=== PATIENT | female | born 1960 | race African-American/Black ===

== ENCOUNTER 2023-04-04 15:46 | Inpatient (IN) | payer OTHER, SELFPAY ==
[2023-04-04] VITALS (22 sets, daily range): BP systolic 71–170; BP diastolic 45–98; PULSE 84–115; RESP 13–26; TEMP 36.2–36.6; O2SAT 97–100
--- NOTE | ~2023-04-04 | XR_ITS ---
EXAMINATION: XR chest 1V portable DATE: 04/04/2023 17:29 INDICATION: Altered mental status. TECHNIQUE: A single frontal view of the chest was obtained on 2 radiographs. COMPARISON: None. FINDINGS: There is a diffuse interstitial pattern, consistent with mild pulmonary edema. No pleural e ffusion or pneumothorax. The heart size is normal. There is an electronic implant in left chest wall. IMPRESSION: 1. Mild pulmonary edema. Reviewed, dictated and finalized at location E. IMPRESSION: 1. Mild pulmonary edema.
--- NOTE | ~2023-04-04 | CT_ITS ---
EXAMINATION: CT brain wo con DATE: 04/04/2023 17:05 INDICATION: Seizure. TECHNIQUE: Computed tomography (CT) of the head was performed without intravenous contrast. The mA wa s adjusted according to patient size. Iterative reconstruction technique was employed. The dose-lengt h product was 908.00 mGy-cm. COMPARISON: None FINDINGS: There is an infarct in right cerebellum. There are scattered areas of low attenuation in th e cerebral white matter and deep simpson nuclei. There are old infarcts involving the left caudate nucle us, left frontal and parietal lobes, and right thalamus. There is no intracranial hemorrhage or abnor mal mass lesion. There is mild mucosal thickening in the ethmoid sinuses. There is a normal. The mast oid air cells are normal. IMPRESSION: 1. Age-indeterminate infarct in right cerebellum. 2. Old infarcts involving the left caudate nucleus, left frontal and parietal lobes, right thalamus. 3. Extensive nonspecific cerebral white matter disease and disease of the deep simpson nuclei, which lik abigail represents chronic small vessel ischemic disease. Reviewed, dictated and finalized at location E. IMPRESSION: 1. Age-indeterminate infarct in right cerebellum. 2. Old infarcts involving the left caudate nucleus, left frontal and parietal l obes, right thalamus. 3. Extensive nonspecific cerebral white matter disease and disease of the deep simpson nuclei, which likely represents chronic small vessel ischemic disease.
[2023-04-04] MEDS: SODIUM CHLORIDE 0.9% IV 1,000 ML 999 ML IV CONT (16:05)
[2023-04-04] MEDS: NOREPINEPHRINE 8 MG/D5W 250 ML 8 MG/250 ML BAG 5 MG (16:11)
[2023-04-04] MEDS: levETIRAcetam 1000MG/NACL100ML 1,000 MG/100 ML BAG 400 MG IVPB (16:27)
--- NOTE | 2023-04-04 16:39 | ED.SEIZURE ---
HPI - Seizure General Chief Complaint: Seizure Stated Complaint: seizures History of Present Illness HPI Narrative: This is a 63-year-old female, with history of toxoplasmosis,, stroke with residual right-sided deficits and nonverbal status, brought in by EMS after multiple seizures at her long-term. EMS reports on arrival to the patient's long-term, the patient was seen seizing, though this stopped spontaneously. During transport, the patient had a second seizure. She was given 5 of IV Versed with cessation of seizure activity. There was no reported recent change in the patient's health status. Related Data Allergies Allergy/AdvReac Type Severity Reaction Status Date / Time No Known Allergies Allergy Verified 04/04/23 16:16 Review of Systems Review of Systems: Unable to obtain review of systems due to patient's baseline altered mental and nonverbal status PMFSH Past Medical History Medical History CVA (cerebral vascular accident) Dementia History of convulsions Hypertension Toxoplasmosis Surgical History Surgical History No significant past surgical history Social History Social History Smoking status: Smoker, status unknown Alcohol intake: unknown Substance use: unknown Exam Narrative: GENERAL: Well-developed, well-nourished, minimally responsive HEAD: Normocephalic, atraumatic. EYES: PERRLA (pupils 3mm and sluggishly reactive bilaterally) ENT: Nares clear, no rhinorrhea or epistaxis. Mucous membranes moist. Oropharynx without tonsillar hypertrophy exudate or other lesions. NECK: Supple. No midline spine step-off or crepitus CHEST: Rhonchi bilaterally with good aeration. No respiratory distress. No wheezes rales HEART: Tachycardic with regular rhythm. No murmur heard. Normal peripheral pulses. ABDOMEN: Soft, nondistended, normal active bowel sounds. EXTREMITIES: Normal range of motion. No edema. SKIN: Warm, dry, no rash. NEURO: Appears lethargic, withdraws from noxious stimulus to the left, no noted response to noxious stimulus on the right Course Course Emergency Course: 16:10 - On arrival, the patient was minimally responsive and withdrew slightly with the left arm from noxious stimulus but was otherwise unresponsive and had coarse respirations. The decision was made to intubate, however the patient's blood pressure and 76/40. The patient was resuscitated with fluids and Levophed was started. As her blood pressure improved, the patient became more responsive. Staff contacted the patient's long-term, who notes she is nonverbal at baseline. It is unclear if she has neurologic deficits at baseline. 16:50 - I discussed the patient with her sister, who notes for the past 6 months, the patient has had right-sided weakness and has been nonverbal. 18:10 - CT head not concerning for intracranial hemorrhage. Lactic acid elevated to 11.9, consistent with seizure. Creatinine elevated to 1.7 with unknown baseline. CBC demonstrates slightly elevated white blood cell count of 10.4 with anemia (hemoglobin 10.7 with unknown baseline). UA consistent with UTI. Urine drug screen positive for benzodiazepines. Levophed has since been weaned off. I suspect this is secondary to the Versed the patient received in route. Alcohol, acetaminophen and salicylates negative. Chest x-ray demonstrates mild pulmonary edema without other acute processes. I suspect the patient's seizures may be related to UTI. I discussed the patient with neurologist, Dr. Perez who agrees to consult. 18:20 - I discussed the patient with hospitalist, AMY Chowdary who accepts admission to IMU. Vital Signs Vital signs: Vital Signs Temperature 97.8 F 04/04/23 15:46 Pulse Rate 111 H 04/04/23 15:46 Respiratory Rate 25 H 04/04/23 15:46 Blood Pressure 101/59
[2023-04-04 16:49] LABS: Basophils Percent Auto 0.4 % (0.2-1.2); Eosinophils Percent Auto 0.3 % (0-4.4); Hematocrit 37.8 % (37.0-47.0); Hemoglobin 10.7 g/dL (12.0-15.0); Immature Granulocyte Absolute 0.19 K/mm3 (0.00-0.031); Immature Granulocyte Percent A 1.8 % (0-0.5); Immature Platelet Fraction Pct 2.8 % (0.9-11.2); Lymphocytes Absolute Auto 0.93 K/mm3 (0.9-3.2); Lymphocytes Percent Auto 8.9 % (18.3-44.2); Mean Corpuscular HGB Conc 28.3 g/dl (32-36); Mean Corpuscular Hemoglobin 22.2 pg (26-34); Mean Corpuscular Volume 78.3 fl (80-100); Mean Platelet Volume 9.5 fl (7.4-10.4); Monocytes Absolute Auto 0.4 K/mm3 (0.1-0.6); Monocytes Percent Auto 3.8 % (2.6-8.5); Neutrophils Absolute Auto 8.8 K/mm3 (1.3-6.7); Neutrophils Percent Auto 84.8 % (45.5-73.1); Platelet Count Result 231 k/mm3 (150-375); Red Blood Count 4.83 M/mm3 (4.2-5.4); Red Cell Distribution Width 29.2 % (11.5-14.5); White Blood Count 10.4 K/mm3 (4.5-10.0)
[2023-04-04 16:57] LABS: Partial Thromboplastin Time 25.5 SECONDS (22.3-36.8)
[2023-04-04 17:09] LABS: Troponin I 0.017 ng/mL (0.000-0.034)
[2023-04-04 17:11] LABS: Acetaminophen < 10 ug/mL (10-30); Ethanol < 10 mg/dL (<10); Salicylate < 1.0 mg/dL (2-20)
--- NOTE | 2023-04-04 17:12 | ECG_ITS ---
Measurements Intervals [place] Rate: 115 P: 51 WI: 112 QRS: 7 QRSD: 83 T: 48 QT: 296 QTc: 411 Interpretive Statements SINUS TACHYCARDIA WITH SHORT WI INTERVAL SEPTAL MYOCARDIAL INFARCTION , PROBABLY OLD [40+ ms Q WAVE IN V1/V2] INFEROLATERAL ST DEPRESSION, CONSIDER ISCHEMIA ABNORMAL ECG WARNING: DATA QUALITY MAY AFFECT INTERPRETATION NO PREVIOUS ECG AVAILABLE FOR COMPARISON Electronically Signed On 04-05-2023 8:27:31 CDT by Hemant Astudillo M.D.
[2023-04-04 17:16] LABS: INR 1.1; Prothrombin Time 14.9 Seconds (11.1-14.7)
[2023-04-04 17:24] LABS: Platelet Estimate Adequate (Adequate)
[2023-04-04 17:25] LABS: Hypochromasia 1+ (NORMAL); Schistocytes None Seen (NORMAL)
[2023-04-04 17:26] LABS: Anisocytosis 3+ (NORMAL)
[2023-04-04 17:27] LABS: Amphetamine Screen Urine Negative (Negative); Barbiturate Screen Urine Negative (Negative); Benzodiazepines Screen Urine Positive (Negative); Cannabinoid Screen Urine Negative (Negative); Cocaine Screen Urine Negative (Negative); Methadone Screen Urine Negative (Negative); Opiate Screen Urine Negative (Negative); Phencyclidine Screen Urine Negative (Negative)
[2023-04-04 17:27] LABS: Alanine Aminotransferase 50 U/L (6-35); Albumin Level 3.8 g/dL (3.5-5.1); Alkaline Phosphatase 64 U/L (38-126); Anion Gap 20 mmol/L (8-16); Aspartate Amino Transferase 38 U/L (14-36); Bilirubin,Total 0.3 mg/dL (0.2-1.3); Blood Urea Nitrogen 17 mg/dL (7-17); Carbon Dioxide 11 mmol/L (22-30); Chloride 110 mmol/L (98-107); Creatine Kinase 65 U/L (30-135); Estimated Glomerular Filt Rate 37; Glucose 149 mg/dL (65-110); Potassium 3.8 mmol/L (3.4-5.0); Sodium 141 mmol/L (137-145)
[2023-04-04 17:29] LABS: Lactic Acid Reflex 11.9 mmol/L (0.7-2.0)
--- NOTE | 2023-04-04 17:41 | PC.NURSE ---
Per EDMD pt is not allowed to sign pt out as he has neglect charges against him. Nursing [facility] states pt baseline is A&Ox2.
[2023-04-04 17:46] LABS: Appearance Urine Turbid (Clear); Bacteria Urine 4+ /hpf; Bilirubin Urine Negative (Negative); Blood Urine 3+ (Negative); Color Urine Yellow (Yellow); Glucose Urine UA Negative (Negative); Hyaline Casts Urine Present /lpf; Ketones Urine Negative (Negative); Leukocyte Esterase Ur 2+ LEU/UL (Negative); Nitrate Urine Positive (Negative); Protein Urine 2+ mg/dL (Negative); RBC Urine 21-50 /hpf (0-2); Squamous Epithelial Cell Urine Occasional /hpf (Few); WBC Urine 51-100 /hpf; pH Urine 6.5 (5.0-9.0)
[2023-04-04 17:58] LABS: Add Urine Microscopic? YES
[2023-04-04] MEDS: AZITHROMYCIN 500 MG/NS 250 ML 500 MG/250 ML BAG 250 MG IVPB (18:00)
[2023-04-04] MEDS: CEFEPIME 1 GM/NS 50 ML 1 GM/50 ML BAG IVPB (18:00)
[2023-04-04 19:36] LABS: Reflex Lactic Acid Yes or No Add Lactic
[2023-04-04 20:21] LABS: Lactic Acid 3.3 mmol/L (0.7-2.0)
--- NOTE | 2023-04-04 22:27 | ADMGEN ---
This patient, Jennifer Braxton, was admitted to IMU Room 202-01. Patient/family oriented to hospital policies and general routines including ID bracelet, bed and alarms, visiting hours, pain management, procedures, bathroom and other care routines, personal items, smoking policy, room service/diet, and visiting hours. Information on how to activate the Rapid Response Team has been discussed. Patient/Family are encouraged to report perceived risks to care and to ask questions if they do not understand what they are told or what they should do.
--- NOTE | 2023-04-04 23:34 | PM.IMHP ---
H&P: HPI History of Present Illness Date/Time: 04/04/23 21:00 Chief Complaint: Seizure. Narrative: This is an unfortunate 63-year-old female with history of stroke, seizures, hypertension, and hyperlipidemia who presented to the emergency department via EMS from a local care home for evaluation after a seizure. She is postictal and unable to provide any history though I am not certain how much she communicates at baseline. As such all of the following is obtained via a review of her electronic medical records. Staff at [facility] report that she had 2 seizures lasting about 2 minutes each. They stopped abruptly without intervention. EMS was summoned and she had another seizure EN route to the hospital for which she received 5 mg of IV Versed. She has been postictal since that time. In the ED: She was afebrile on arrival. Blood pressures have been stable. CT of the brain showed an age-indeterminate infarct in the right cerebellum and other old infarcts. Chest x-ray showed mild pulmonary edema. Labs were significant for a WBC count of 10.4, hemoglobin 10.7, creatinine 1.70, lactic acid 11.9, serum carbon dioxide 11. Urine was nitrate and leukocyte esterase positive with 4+ bacteria and 51 to 100 WBC. She was loaded with 1500 mg levetiracetam and was given a dose cefepime. She is being admitted in this setting for close monitoring and neurology consultation. Review of Systems Review of Systems: Unable to obtain given clinical condition. [facility] Past Medical History Medical History (Updated 04/06/23 @ 14:52 by Arcelia Chowdary PA-C) Cerebrovascular accident 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 Chronic kidney disease Dementia Hypertension Seizures Toxoplasmosis Surgical History Surgical History No significant past surgical history Family History Family History (Updated 04/06/23 @ 14:52 by Arcelia Chowdary PA-C) Other Family history unknown Social History Social History (Updated 04/06/23 @ 14:53 by Arcelia Chowdary PA-C) Social History: Surrogate medical decision maker: Wicho Braxton, spouse. Code status: Full code. Smoking status: Former smoker Alcohol intake: unknown Substance use: unknown Spiritual care concerns: No Meds Home Medications and Allergies Home Medications Medication Instructions Recorded Confirmed Type amlodipine 5 mg tablet 5 mg PO DAILY 04/04/23 04/04/23 History arginine-calcium carbonate 1,000 1 cap PO DAILY 04/04/23 04/04/23 History mg-25 mg capsule cholecalciferol (vitamin D3) 25 25 mcg PO DAILY 04/04/23 04/04/23 History mcg (1,000 unit) capsule (Vitamin D3) enoxaparin 40 mg/0.4 mL 40 mg subcut DAILY 04/04/23 04/04/23 History subcutaneous syringe ferrous sulfate 325 mg (65 mg 325 mg PO DAILY 04/04/23 04/04/23 History iron) tablet lamotrigine 100 mg tablet 100 mg PO BID 04/04/23 04/04/23 History metoprolol tartrate 25 mg tablet 12.5 mg PO BID 04/04/23 04/04/23 History olanzapine 5 mg tablet 2.5 mg PO BID 04/04/23 04/04/23 History olanzapine 5 mg tablet 5 mg PO QHS 04/04/23 04/04/23 History pantoprazole 40 mg tablet,delayed 40 mg PO DAILY 04/04/23 04/04/23 History release polyethylene glycol 3350 17 gram 17 g PO DAILY 04/04/23 04/04/23 History oral powder packet (Miralax) prednisone 20 mg tablet 60 mg PO DAILY 04/04/23 04/04/23 History ramelteon 8 mg tablet 8 mg PO HS 04/04/23 04/04/23 History rosuvastatin 10 mg tablet 10 mg PO DAILY 04/04/23 04/04/23 History sennosides 8.6 mg tablet (Senna 8.6 mg PO BID 04/04/23 04/04/23 History Laxative) sulfamethoxazole 800 1 tablet PO QMWF 04/04/23 04/04/23 History mg-trimethoprim 160 mg tablet Allergies Allergy/AdvReac Type Severity Reaction Status Date / Time No Known Allergies Allergy Verified 04/04/23 16:16 Vital Signs Vital Signs - 24 hr 04/04/23 15:46 04/04/23 16:11 04/04/23 17:40 Tem
[2023-04-05] VITALS (16 sets, daily range): BP systolic 115–165; BP diastolic 60–91; PULSE 91–118; RESP 15–18; TEMP 36.2–37.1; O2SAT 97–100; BMI 30.4
[2023-04-05 05:23] LABS: Basophils Percent Auto 0.4 % (0.2-1.2); Eosinophils Absolute Auto 0.1 K/mm3 (0-0.3); Eosinophils Percent Auto 0.7 % (0-4.4); Hematocrit 31.4 % (37.0-47.0); Hemoglobin 9.3 g/dL (12.0-15.0); Immature Granulocyte Absolute 0.04 K/mm3 (0.00-0.031); Immature Granulocyte Percent A 0.5 % (0-0.5); Lymphocytes Absolute Auto 1.53 K/mm3 (0.9-3.2); Lymphocytes Percent Auto 18.8 % (18.3-44.2); Mean Corpuscular HGB Conc 29.6 g/dl (32-36); Mean Corpuscular Hemoglobin 22.1 pg (26-34); Mean Corpuscular Volume 74.6 fl (80-100); Mean Platelet Volume 9.6 fl (7.4-10.4); Monocytes Absolute Auto 0.5 K/mm3 (0.1-0.6); Monocytes Percent Auto 5.7 % (2.6-8.5); Neutrophils Percent Auto 73.9 % (45.5-73.1); Platelet Count Result 204 k/mm3 (150-375); Red Blood Count 4.21 M/mm3 (4.2-5.4); Red Cell Distribution Width 28.6 % (11.5-14.5); White Blood Count 8.1 K/mm3 (4.5-10.0)
[2023-04-05 05:34] LABS: Lactic Acid Reflex 1.4 mmol/L (0.7-2.0)
[2023-04-05 05:36] LABS: Anion Gap 4 mmol/L (8-16); Blood Urea Nitrogen 18 mg/dL (7-17); Calcium 8.5 mg/dL (8.4-10.2); Carbon Dioxide 24 mmol/L (22-30); Chloride 114 mmol/L (98-107); Estimated Glomerular Filt Rate > 60; Glucose 96 mg/dL (65-110); Sodium 142 mmol/L (137-145)
[2023-04-05 05:45] LABS: Anisocytosis 2+ (NORMAL); Platelet Estimate Adequate (Adequate)
[2023-04-05 05:46] LABS: Burr Cells 1+ (NORMAL); Schistocytes 1+ (NORMAL)
[2023-04-05 05:48] LABS: Creatine Kinase 173 U/L (30-135)
--- NOTE | 2023-04-05 10:34 | PC.NURSE ---
Spoke with JUDY Llamas from [facility]. JUDY Llamas reports patient at baseline responds verbally with two to three words sentences, mumbles unintelligibly, smiles when spoken to, and is frequently agitated. Her appetite fluctuates from poor to adequate. Able to follow directions. Pt takes meds crushed with applesauce. Per JUDY Llamas seizure at facility occurred at approximately 1445. Pt was seen slumped over, convulsing, and unresponsive. Episode lasted approximately 2 minutes. 10 - 15 minutes later another episode with same characteristics lasted approximately 2 minutes. v groove cutter arrived on seen and pt began convulsing again which persisted while being put in ambulance.
--- NOTE | 2023-04-05 12:12 | WPDNEURCNPN ---
Assessment and Plan Assessment and plan (1) Recurrent seizures: Code(s): G40.909 - Epilepsy, unspecified, not intractable, without status epilepticus Status: Acute (2) CVA, old, aphasia: Code(s): I69.320 - Aphasia following cerebral infarction Status: Acute Plan 1. left hemispheric stroke with right-sided neurological deficit. 2. CT scan has documented disease stroke in the right cerebellum and right thalamus as well. With extensive nonspecific white matter disease. 3. 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 Consult date: 04/05/23 HPI: Jennifer Braxton is a 63 year old femaleAdmitted to the hospital through the emergency [facility] with history of 1. Nonverbal status 2. Stroke with right-sided deficit and 3. History of toxoplasmosis. As per the information available during the transfer she had the 2nd seizure when she received IV Versed 5 mg resulting in the stoppage of the seizure. She is not allergic to any medications. She does have ongoing history of dementia, hypertension, cerebrovascular accident, and toxoplasmosis. Smoking status is unknown so as the alcohol intake. Initial exam in the emergency room revealed her pupils were reacting to light sluggishly, her being lethargic with no responses on the right side on noxious stimuli initial CT scan of the head was negative for the bleed but a lactic acid was 11.9 he was weaned off Levophed and was admitted to the hospital for further stabilization her vital signs were normal CBC was with hemoglobin 10.7 routine lab studies normal except the drug screen on the urine positive for benzodiazepine EKG was normal PMFSH Past Medical History Medical History CVA (cerebral vascular accident) Dementia History of convulsions Hypertension Toxoplasmosis Surgical History Surgical History No significant past surgical history Social History Social History Smoking status: Current every day smoker Alcohol intake: unknown Substance use: unknown Spiritual care concerns: No Meds Home Medications and Allergies Home Medications Medication Instructions Recorded Confirmed Type amlodipine 5 mg tablet 5 mg PO DAILY 04/04/23 04/04/23 History arginine-calcium carbonate 1,000 1 cap PO DAILY 04/04/23 04/04/23 History mg-25 mg capsule cholecalciferol (vitamin D3) 25 25 mcg PO DAILY 04/04/23 04/04/23 History mcg (1,000 unit) capsule (Vitamin D3) enoxaparin 40 mg/0.4 mL 40 mg subcut DAILY 04/04/23 04/04/23 History subcutaneous syringe ferrous sulfate 325 mg (65 mg 325 mg PO DAILY 04/04/23 04/04/23 History iron) tablet lamotrigine 100 mg tablet 100 mg PO BID 04/04/23 04/04/23 History metoprolol tartrate 25 mg tablet 12.5 mg PO BID 04/04/23 04/04/23 History olanzapine 5 mg tablet 2.5 mg PO BID 04/04/23 04/04/23 History olanzapine 5 mg tablet 5 mg PO QHS 04/04/23 04/04/23 History pantoprazole 40 mg tablet,delayed 40 mg PO DAILY 04/04/23 04/04/23 History release polyethylene glycol 3350 17 gram 17 g PO DAILY 04/04/23 04/04/23 History oral powder packet (Miralax) prednisone 20 mg tablet 60 mg PO DAILY 04/04/23 04/04/23 History ramelteon 8 mg tablet 8 mg PO HS 04/04/23 04/04/23 History rosuvastatin 10 mg tablet 10 mg PO DAILY 04/04/23 04/04/23 History sennosides 8.6 mg tablet (Senna 8.6 mg PO BID 04/04/23 04/04/23 History Laxative) sulfamethoxazole 800 1 tablet PO QMWF 04/04/23 04/04/23 History mg-trimethoprim 160 mg tablet Allergies Allergy/AdvReac Type Severity Reaction Status Date / Time No Known Allergies Allergy Verified
--- NOTE | 2023-04-05 12:26 | PM.IMPN ---
Progress Note: A&P Assessment and Plan (1) Recurrent seizures: Code(s): G40.909 - Epilepsy, unspecified, not intractable, without status epilepticus Status: Acute (2) Abnormal brain CT: Code(s): R90.89 - Other abnormal findings on diagnostic imaging of central nervous system Status: Acute (3) Urinary tract infection: Code(s): N39.0 - Urinary tract infection, site not specified Status: Acute (4) Lactic acidosis: Code(s): E87.20 - Acidosis, unspecified Status: Acute Plan The patient presented to the emergency department for evaluation after having 2 seizures at her nursing facility as detailed in HPI. She had another seizure in route to the hospital and received 5 mg IV Versed. Labs, imaging, EKG, and all reports were personally reviewed. She has been postictal since that time and has not had a recurrent seizure. She was loaded with levetiracetam 1500 mg x 1. Neurology has been consulted and their input is appreciated. Brain CT shows an age-indeterminate right cerebellar infarct. She is being monitored on telemetry. Blood pressures were reviewed and they are stable. UA looks infected and we will continue with ceftriaxone, pending urine culture. Lactic acid level was 11.9 on arrival but it has significantly improved with IV fluids. Likely this is related to seizure activity and less likely sepsis over blood cultures have been obtained as well. Her home medications will be reviewed and resumed as appropriate. Subjective Date/time seen: 04/05/23 12:26 Interval history: no seizure overnight Exam Narrative: General: Chronically ill-appearing female in no acute distress. Weight: 70.8 kg. HEENT: Normocephalic, atraumatic. Pupils are approximately 3 to 4 mm and are reactive. Sclerae anicteric. Tacky mucous membranes. Neck: Supple. No obvious cervical spine tenderness. No JVD. Respiratory: Respirations are nonlabored. Lung sounds are diminished due to poor effort. Cardiovascular: Regular rate and rhythm with S1-S2. Gastrointestinal: Abdomen is soft, nontender, and nondistended with positive bowel sounds. Skin: Warm and dry. No rash or lesions on limited exam. Extremities: No cyanosis, clubbing, or edema. Radial and pedal pulses intact. Neurological: Postictal. No obvious facial asymmetry. She is noted to move both upper extremities but right appears weaker when compared to the left. Lower extremities are contracted. Psychiatric: Unable to assess as she is postictal. Objective Data Vital Signs Vital Signs: Vital Signs - 24 hr 04/04/23 15:46 04/04/23 16:11 04/04/23 17:40 Temperature 97.8 F Pulse Rate 111 H 115 H 115 H Respiratory Rate 25 H 13 Blood Pressure 101/59 L 71/45 L 170/96 H Pulse Oximetry 97 100 Oxygen Delivery Nasal Cannula Oxygen Flow Rate 2 04/04/23 17:45 04/04/23 17:46 04/04/23 17:51 Temperature Pulse Rate 100 99 100 Respiratory Rate 17 16 19 Blood Pressure 128/86 129/74 Pulse Oximetry 100 100 Oxygen Delivery Oxygen Flow Rate 04/04/23 17:56 04/04/23 18:00 04/04/23 18:01 Temperature Pulse Rate 96 105 H 107 H Respiratory Rate 20 18 20 Blood Pressure 133/77 148/89 H Pulse Oximetry 100 100 100 Oxygen Delivery Oxygen Flow Rate 04/04/23 18:06 04/04/23 18:11 04/04/23 18:15 Temperature Pulse Rate 106 H 106 H 101 H Respiratory Rate 20 26 H 17 Blood Pressure 136/82 145/89 H Pulse Oximetry 99 98 99 Oxygen Delivery Oxygen Flow Rate 04/04/23 18:16 04/04/23 18:21 04/04/23 18:26 Temperature Pulse Rate 102 H 102 H 99 Respiratory Rate 17 15 13 Blood Pressure 131/80 152/82 H 135/89 Pulse Oximetry 99 100 100 Oxygen Delivery Oxygen Flow Rate 04/04/23 18:30 04/04/23 18:41 04/04/23 20:24 Temperature Pulse Rate 101 H 109 H 110 H Respiratory Rate 14 20 18 Blood Pressure 150/96 H 144/98 H Pulse Oximetry 99 100 99 Oxygen Delivery Oxygen Flow Rate 04/04/23 19:46 04/04/23 21:10
[2023-04-05] MEDS: levETIRAcetam IV 750 MG in DEXTROSE 5% 100 ML 430 MG IVPB ×2 (13:58→21:21)
[2023-04-05] MEDS: SODIUM CHLORIDE 0.9% IV 1,000 ML 75 ML IV CONT (14:53)
--- NOTE | 2023-04-05 16:42 | PC.NURSE ---
All po meds held. Dr. Oconnor made aware.
[2023-04-06] VITALS (18 sets, daily range): BP systolic 145–212; BP diastolic 74–101; PULSE 77–104; RESP 16–20; TEMP 36.2–36.9; O2SAT 97–100
[2023-04-06] MEDS: SODIUM CHLORIDE 0.9% IV 1,000 ML 75 ML IV CONT ×2 (03:41→17:43)
[2023-04-06] MEDS: levETIRAcetam IV 750 MG in DEXTROSE 5% 100 ML 430 MG IVPB ×2 (09:10→21:03)
[2023-04-06] MEDS: OLANZapine 2.5 MG TABLET PO (11:09)
--- NOTE | 2023-04-06 11:12 | PM.IMPN ---
Progress Note: A&P Assessment and Plan (1) Recurrent seizures: Code(s): G40.909 - Epilepsy, unspecified, not intractable, without status epilepticus Status: Acute Assessment and Plan: Improving. Appreciate Neurology input. (2) Abnormal brain CT: Code(s): R90.89 - Other abnormal findings on diagnostic imaging of central nervous system Status: Acute Assessment and Plan: History of stroke. Continue aspirin and statin Appreciate neurology input (3) Urinary tract infection: Code(s): N39.0 - Urinary tract infection, site not specified Status: Acute Assessment and Plan: Antibiotic (4) Lactic acidosis: Code(s): E87.20 - Acidosis, unspecified Status: Acute (5) Positive blood cultures: Code(s): R78.81 - Bacteremia Status: Acute Assessment and Plan: Continue antibiotics. Possible contamination Subjective Date/time seen: 04/06/23 11:12 Interval history: More alert today Exam Narrative: General: Chronically ill-appearing female in no acute distress. Weight: 70.8 kg. HEENT: Normocephalic, atraumatic. Pupils are approximately 3 to 4 mm and are reactive. Sclerae anicteric. Tacky mucous membranes. Neck: Supple. No obvious cervical spine tenderness. No JVD. Respiratory: Respirations are nonlabored. Lung sounds are diminished due to poor effort. Cardiovascular: Regular rate and rhythm with S1-S2. Gastrointestinal: Abdomen is soft, nontender, and nondistended with positive bowel sounds. Skin: Warm and dry. No rash or lesions on limited exam. Extremities: No cyanosis, clubbing, or edema. Radial and pedal pulses intact. Neurological: Postictal. No obvious facial asymmetry. She is noted to move both upper extremities but right appears weaker when compared to the left. Lower extremities are contracted. Psychiatric: Unable to assess as she is postictal. Objective Data Vital Signs Vital Signs: Vital Signs - 24 hr 04/05/23 12:00 04/05/23 12:00 04/05/23 12:00 Temperature 98.1 F Pulse Rate 106 H 105 H Respiratory Rate 15 Blood Pressure 118/67 Pulse Oximetry 100 100 Oxygen Delivery Room Air 04/05/23 14:00 04/05/23 16:00 04/05/23 16:00 Temperature 97.1 F L Pulse Rate 108 H 107 H Respiratory Rate 16 Blood Pressure 161/91 H Pulse Oximetry 100 100 Oxygen Delivery Room Air 04/05/23 16:00 04/05/23 18:00 04/05/23 20:37 Temperature 98.3 F Pulse Rate 106 H 101 H 101 H Respiratory Rate 16 Blood Pressure 165/87 H Pulse Oximetry 97 Oxygen Delivery 04/05/23 20:00 04/05/23 20:00 04/05/23 21:35 Temperature Pulse Rate 99 99 96 Respiratory Rate 16 Blood Pressure Pulse Oximetry 97 Oxygen Delivery Room Air 04/05/23 23:27 04/06/23 00:00 04/06/23 00:00 Temperature 98.2 F Pulse Rate 93 86 86 Respiratory Rate 18 18 Blood Pressure 149/74 H Pulse Oximetry 97 97 Oxygen Delivery Room Air 04/06/23 01:59 04/06/23 03:54 04/06/23 04:00 Temperature 98.3 F Pulse Rate 82 77 80 Respiratory Rate 16 Blood Pressure 154/82 H Pulse Oximetry 97 Oxygen Delivery 04/06/23 04:00 04/06/23 05:16 04/06/23 07:20 Temperature 98.4 F Pulse Rate 90 88 90 Respiratory Rate 16 20 Blood Pressure 146/76 H Pulse Oximetry 97 100 Oxygen Delivery Room Air 04/06/23 07:52 04/06/23 08:00 04/06/23 08:00 Temperature Pulse Rate 94 Respiratory Rate Blood Pressure Pulse Oximetry 100 Oxygen Delivery Room Air Room Air 04/06/23 10:00 Temperature Pulse Rate 95 Respiratory Rate Blood Pressure Pulse Oximetry Oxygen Delivery Intake/Output Intake/Output: Intake & Output 04/03/23 04/04/23 04/05/23 04/06/23 23:59 23:59 23:59 23:59 Intake Total 1515 265.0 1550 Output Total 900 300 Balance 1515 -635.0 1250 Meds/Results Medications: Active Medications Generic Name Dose Route Start Last Admin Trade Name Freq PRN Reason Stop
[2023-04-06] MEDS: METOPROLOL TARTRATE 12.5 MG TABLET PO (21:02)
[2023-04-06] MEDS: OLANZapine 5 MG TABLET PO (21:02)
[2023-04-06] MEDS: lamoTRIgine 100 MG TABLET PO (21:03)
[2023-04-07] VITALS (10 sets, daily range): BP systolic 109–164; BP diastolic 58–83; PULSE 66–88; RESP 16–24; TEMP 35.9–36.6; O2SAT 95–100; BMI 31.6
[2023-04-07 05:24] LABS: Estimated CRCL calculation 45 ml/min; Estimated Glomerular Filt Rate > 60
[2023-04-07] MEDS: SODIUM CHLORIDE 0.9% IV 1,000 ML 75 ML IV CONT (09:08)
[2023-04-07] MEDS: levETIRAcetam IV 750 MG in DEXTROSE 5% 100 ML 430 MG IVPB ×2 (09:08→19:55)
[2023-04-07] MEDS: polyethylene glycoL 3350 17 GM POWD.PACK PO (09:09)
[2023-04-07] MEDS: predniSONE 20 MG TABLET 60 MG PO (09:09)
[2023-04-07] MEDS: SENNOSIDES 8.6 MG TABLET PO ×2 (09:09→16:45)
[2023-04-07] MEDS: ROSUVASTATIN 10 MG TABLET PO (09:09)
[2023-04-07] MEDS: PANTOPRAZOLE 40 MG TABLET PO (09:09)
[2023-04-07] MEDS: amLODIPine BESYLATE 5 MG TABLET PO ×2 (09:09)
[2023-04-07] MEDS: ENOXAPARIN 40 MG/0.4 ML SYRINGE SUB-Q (09:09)
[2023-04-07] MEDS: CHOLECALCIFEROL 1,000 UNITS TABLET 1000 UNITS PO (09:09)
[2023-04-07] MEDS: OLANZapine 2.5 MG TABLET PO ×2 (09:09→16:46)
[2023-04-07] MEDS: METOPROLOL TARTRATE 12.5 MG TABLET PO (09:09)
[2023-04-07] MEDS: lamoTRIgine 100 MG TABLET PO (09:10)
[2023-04-07] MEDS: FERROUS SULFATE 325 MG TABLET DR BY MOUTH (09:10)
[2023-04-07] MEDS: ASPIRIN 81 MG ENTERIC TABLET PO (09:10)
--- NOTE | 2023-04-07 11:11 | PM.IMPN ---
Progress Note: A&P Assessment and Plan (1) Recurrent seizures: Code(s): G40.909 - Epilepsy, unspecified, not intractable, without status epilepticus Status: Acute Assessment and Plan: Appreciate neurology input. Continue current anti epileptic medications. (2) Abnormal brain CT: Code(s): R90.89 - Other abnormal findings on diagnostic imaging of central nervous system Status: Acute (3) Urinary tract infection: Code(s): N39.0 - Urinary tract infection, site not specified Status: Acute Assessment and Plan: IV antibiotics (4) Lactic acidosis: Code(s): E87.20 - Acidosis, unspecified Status: Acute Assessment and Plan: Resolved (5) Positive blood cultures: Code(s): R78.81 - Bacteremia Status: Acute Assessment and Plan: Continue IV antibiotics until identification of species Subjective Date/time seen: 04/07/23 11:11 Interval history: No complaints Exam Narrative: General: Chronically ill-appearing female in no acute distress. Weight: 70.8 kg. HEENT: Normocephalic, atraumatic. Pupils are approximately 3 to 4 mm and are reactive. Sclerae anicteric. Tacky mucous membranes. Neck: Supple. No obvious cervical spine tenderness. No JVD. Respiratory: Respirations are nonlabored. Lung sounds are diminished due to poor effort. Cardiovascular: Regular rate and rhythm with S1-S2. Gastrointestinal: Abdomen is soft, nontender, and nondistended with positive bowel sounds. Skin: Warm and dry. No rash or lesions on limited exam. Extremities: No cyanosis, clubbing, or edema. Radial and pedal pulses intact. Neurological: Postictal. No obvious facial asymmetry. She is noted to move both upper extremities but right appears weaker when compared to the left. Lower extremities are contracted. Psychiatric: Unable to assess as she is postictal. Objective Data Vital Signs Vital Signs: Vital Signs - 24 hr 04/06/23 11:22 04/06/23 12:00 04/06/23 12:00 Temperature 97.9 F Pulse Rate 88 86 Respiratory Rate 18 Blood Pressure 145/74 H Pulse Oximetry 100 Oxygen Delivery Room Air 04/06/23 14:00 04/06/23 15:33 04/06/23 16:00 Temperature 98.4 F Pulse Rate 104 H 96 100 Respiratory Rate 17 Blood Pressure 168/88 H Pulse Oximetry 98 Oxygen Delivery 04/06/23 16:00 04/06/23 18:00 04/06/23 20:00 Temperature 97.1 F L Pulse Rate 95 100 Respiratory Rate 16 Blood Pressure 184/99 H Pulse Oximetry 100 Oxygen Delivery Room Air 04/06/23 21:02 04/06/23 23:04 04/06/23 20:00 Temperature 97.5 F L Pulse Rate 89 84 91 Respiratory Rate 16 Blood Pressure 212/101 H Pulse Oximetry 100 Oxygen Delivery 04/06/23 20:00 04/06/23 22:00 04/07/23 00:15 Temperature Pulse Rate 100 85 Respiratory Rate 16 Blood Pressure 164/83 H Pulse Oximetry 100 Oxygen Delivery Room Air 04/07/23 00:00 04/07/23 00:00 04/07/23 02:00 Temperature Pulse Rate 76 84 73 Respiratory Rate 16 Blood Pressure Pulse Oximetry 100 Oxygen Delivery Room Air 04/07/23 04:00 04/07/23 04:00 04/07/23 04:00 Temperature 97.0 F L Pulse Rate 67 74 67 Respiratory Rate 16 16 Blood Pressure 126/65 Pulse Oximetry 95 95 Oxygen Delivery Room Air 04/07/23 06:00 04/07/23 07:27 04/07/23 08:00 Temperature 97.8 F Pulse Rate 77 82 Respiratory Rate 17 Blood Pressure 148/74 H Pulse Oximetry 98 Oxygen Delivery Room Air Intake/Output Intake/Output: Intake & Output 04/04/23 04/05/23 04/06/23 04/07/23 23:59 23:59 23:59 23:59 Intake Total 1515 265.0 2765.0 1550 Output Total 900 1450 1850 Balance 1515 -635.0 1315.0 -300 Meds/Results Medications: Active Medications Generic Name Dose Route Start Last Admin Trade Name Freq PRN Reason Stop Dose Admin Amlodipine Besylate 5 mg 04/05/23 09:00 04/07/23 09:09 Amlodipine Besylate 5 Mg Tablet PO 5 mg DAILY [facility] Administrati
--- NOTE | 2023-04-07 14:21 | PCSTNOTE ---
Please refer to the Bedside Swallow Evaluation in the EMR. Please note, silent aspiration cannot be ruled out at bedside.
--- NOTE | 2023-04-07 15:57 | PC.NURSE ---
Pt received from [facility] at 1550.
[2023-04-07 16:27] LABS: Glucose Point of Care 104 mg/dl (65-105)
[2023-04-08] MEDS: SODIUM CHLORIDE 0.9% IV 1,000 ML 75 ML IV CONT (01:57)
[2023-04-08 06:00] VITALS: BP 135/65; PULSE 79; RESP 18; TEMP 36.3; O2SAT 96
[2023-04-08] MEDS: levETIRAcetam IV 750 MG in DEXTROSE 5% 100 ML 430 MG IVPB (09:55)
[2023-04-08] MEDS: polyethylene glycoL 3350 17 GM POWD.PACK PO (09:56)
[2023-04-08] MEDS: ENOXAPARIN 40 MG/0.4 ML SYRINGE SUB-Q (09:57)
[2023-04-08] MEDS: ASPIRIN 81 MG ENTERIC TABLET PO (09:58)
[2023-04-08] MEDS: SENNOSIDES 8.6 MG TABLET PO (09:58)
[2023-04-08] MEDS: CHOLECALCIFEROL 1,000 UNITS TABLET 1000 UNITS PO (09:58)
[2023-04-08] MEDS: FERROUS SULFATE 325 MG TABLET DR BY MOUTH (09:58)
[2023-04-08] MEDS: ROSUVASTATIN 10 MG TABLET PO (09:58)
[2023-04-08] MEDS: CEFDINIR 300 MG CAPSULE PO (09:58)
[2023-04-08] MEDS: lamoTRIgine 100 MG TABLET PO (09:58)
[2023-04-08] MEDS: amLODIPine BESYLATE 5 MG TABLET PO (09:58)
[2023-04-08] MEDS: OLANZapine 2.5 MG TABLET PO (09:58)
[2023-04-08] MEDS: predniSONE 20 MG TABLET 60 MG PO (09:58)
[2023-04-08] MEDS: PANTOPRAZOLE 40 MG TABLET PO (09:58)
[2023-04-08 09:59] VITALS: PULSE 70
[2023-04-08] MEDS: METOPROLOL TARTRATE 12.5 MG TABLET PO (09:59)
--- NOTE | 2023-04-08 10:51 | PM.DS ---
DS: Admitting Diagnosis Discharge Date April 08, 2023 Admitting Diagnosis Seizures and UTI DS: Discharge Diagnosis Discharge Diagnosis (1) Recurrent seizures: Code(s): G40.909 - Epilepsy, unspecified, not intractable, without status epilepticus Status: Acute Assessment and Plan: Appreciate neurology input. Continue current anti epileptic medications. (2) Abnormal brain CT: Code(s): R90.89 - Other abnormal findings on diagnostic imaging of central nervous system Status: Acute (3) Urinary tract infection: Code(s): N39.0 - Urinary tract infection, site not specified Status: Acute Assessment and Plan: IV antibiotics (4) Lactic acidosis: Code(s): E87.20 - Acidosis, unspecified Status: Acute Assessment and Plan: Resolved (5) Positive blood cultures: Code(s): R78.81 - Bacteremia Status: Acute Assessment and Plan: Continue IV antibiotics until identification of species DS: Summary Hospital Course Hospital Course: Patient was admitted for seizures and also found have a UTI. Oral antibiotics on discharge. Anti seizure medication was adjusted by Neurology. Continue to monitor this is an out patient. Otherwise patient is back to baseline Time Spent with Patient Time attestation: Total time spent providing and/or coordinating discharge services: Exam Narrative: General: Chronically ill-appearing female in no acute distress. Weight: 70.8 kg. HEENT: Normocephalic, atraumatic. Pupils are approximately 3 to 4 mm and are reactive. Sclerae anicteric. Tacky mucous membranes. Neck: Supple. No obvious cervical spine tenderness. No JVD. Respiratory: Respirations are nonlabored. Lung sounds are diminished due to poor effort. Cardiovascular: Regular rate and rhythm with S1-S2. Gastrointestinal: Abdomen is soft, nontender, and nondistended with positive bowel sounds. Skin: Warm and dry. No rash or lesions on limited exam. Extremities: No cyanosis, clubbing, or edema. Radial and pedal pulses intact. Neurological: Postictal. No obvious facial asymmetry. She is noted to move both upper extremities but right appears weaker when compared to the left. Lower extremities are contracted. Psychiatric: Unable to assess as she is postictal. DS: Data Data Completed and Pending Labs on day of discharge: Labs from last 24 hours 04/07/23 11:26 POC Capillary Glucose 104 Preliminary micro results at discharge 04/04/23 16:46 Blood Culture - Preliminary Blood Staphylococcus epidermidis 10/06/23 16:34 Blood Culture - Preliminary Blood Discharge Plan Discharge Attending physician on discharge: Ankur Oconnor Consulting providers: Yobany San Discharging Clinician: Ankur Oconnor Patient Disposition: NH Long-Term/Asst Living Activity: as tolerated Diet: as tolerated Patient Instructions: Antibiotic Form, Enoxaparin (By injection), New-Onset Seizure in Adults (DC), Safe Use of Anticoagulants (DC) Stand Alone Forms: General Discharge Information Discharge Medications: New cefdinir 300 mg Capsule 300 mg PO Q12HR 4 Days Qty: 8 0RF levetiracetam [Keppra] 750 mg tablet 750 mg PO BID Qty: 60 0RF Continued sennosides [Senna Laxative] 8.6 mg Tablet 8.6 mg PO BID polyethylene glycol 3350 [Miralax] 17 gram Powder In Packet 17 g PO DAILY prednisone 20 mg tablet 60 mg PO DAILY olanzapine 5 mg tablet 2.5 mg PO BID olanzapine 5 mg tablet 5 mg PO QHS amlodipine 5 mg tablet 5 mg PO DAILY sulfamethoxazole-trimethoprim 800-160 mg tablet 1 tablet PO QMWF pantoprazole 40 mg tablet,delayed release (DR/EC) 40 mg PO DAILY ferrous sulfate 325 mg (65 mg iron) Tablet 325 mg PO DAILY lamotrigine 100 mg Tablet 100 mg PO BID cholecalciferol (vitamin D3) [Vitamin D3] 25 mcg (1,000 unit) Capsule 25 mcg PO DAILY enoxapar
[2023-04-08 12:44] LABS: SARS-CoV-2 RNA PCR Negative (Negative)
[2023-04-08 14:00] VITALS: BP 127/69; PULSE 88; RESP 18; TEMP 36.5; O2SAT 100
== END 2023-04-08 14:30 | DRG 53 ==
LOC: ANHED 18:25 → ANHIMU 18:57 → ANH3MEDSUR 04-07 15:44
PROVIDERS: Family Medicine; Physician Assistant; Admitting Provider Student in an Organized Health Care Education/Training Program; Emergency Provider Preventive Medicine Aerospace Medicine; PCP Hospitalist; Visit Provider Chiropractor
DX: G40.109 Localization-related (focal) (partial) symptomatic epilepsy and epileptic syndromes with simple partial seizures, not intractable, without status epilepticus (principal); E87.21 Acute metabolic acidosis; R78.81 Bacteremia; F03.90 Unspecified dementia, unspecified severity, without behavioral disturbance, psychotic disturbance, mood disturbance, and anxiety; I69.351 Hemiplegia and hemiparesis following cerebral infarction affecting right dominant side; N39.0 Urinary tract infection, site not specified; I69.398 Other sequelae of cerebral infarction; R29.818 Other symptoms and signs involving the nervous system; Z20.822 Contact with and (suspected) exposure to COVID-19; I12.9 Hypertensive chronic kidney disease with stage 1 through stage 4 chronic kidney disease, or unspecified chronic kidney disease; N18.9 Chronic kidney disease, unspecified; Z87.898 Personal history of other specified conditions; I69.320 Aphasia following cerebral infarction; Z74.01 Bed confinement status
CPT/HCPCS: 36415; 70450; 71045; 80048; 80053; 80307; 81001; 82550; 82565; 82948; 83605; 83735; 84484; 85025; 85055; 85610; 85730; 87040; 87077; 87086; 87147; 87181; 87186; 87635; 92610; 93005; 96361; 96365; 96366; 96367; 96375; 96376; 99285; A9270; G0378; G0379; J0456; J0692; J0696; J1650; J1953; J3370; J7030; J7512

== ENCOUNTER 2023-07-13 10:38 | Emergency (ER) | payer OTHER, SELFPAY ==
--- NOTE | ~2023-07-13 | XR_ITS ---
EXAMINATION: XR hip RT 2V w AP pelvis INDICATION: Right hip pain TECHNIQUE: AP view of the pelvis and two views of the right hip are obtained. COMPARISON: None available FINDINGS: Bone alignment is normal. There is no fracture. There is mild osteoarthritis of the hips. A sclerotic area of the proximal right femur has the appearance of an enchondroma. IMPRESSION: 1. No acute osseous abnormality. If there is high clinical suspicion for hip fracture, consider CT. Reviewed, dictated and finalized at location F. ENTER MAINTENANCE IMPRESSION: 1. No acute osseous abnormality. If there is high clinical suspicion for hip fr acture, consider CT.
--- NOTE | ~2023-07-13 | XR_ITS ---
EXAMINATION: XR shoulder LT min 2V INDICATION: Left shoulder pain TECHNIQUE: Four views of the left shoulder are submitted. COMPARISON: None FINDINGS: Normal alignment. No fracture. Glenohumeral and acromioclavicular joint spaces are normal. Soft tissues are unremarkable. IMPRESSION: 1. No acute osseous abnormality. Reviewed, dictated and finalized at location F. ING AID ASSISTANT
--- NOTE | ~2023-07-13 | CT_ITS ---
EXAMINATION: CT brain wo con INDICATION: Head injury COMPARISON: 04/04/2023 TECHNIQUE: Standard unenhanced head CT. The dose-length product (DLP) was 529.67 mGy-cm. The mA was a djusted according to patient size. Iterative reconstruction technique was employed. FINDINGS: No acute intraparenchymal hemorrhage. No evidence of mass lesion. No evidence of acute infa rction. There are areas of prior infarction of the right cerebellum, the left caudate nucleus, the le ft frontal and parietal lobes, and the right thalamus. There is extensive periventricular and subcort ical hypodensity probably related to small vessel ischemic disease. There is moderate prominence of t he sulci and ventricles related to cerebral atrophy. Intracranial calcified cerebral atherosclerosis is noted. No extra-axial collections. No mass effect or midline shift. The orbits and soft tissues ar e unremarkable. The visualized sinuses and mastoid air cells are well aerated. IMPRESSION: 1. Areas of prior infarction without acute intracranial abnormality. 2. Age related findings. Reviewed, dictated and finalized at location F. WEIGHER HELPER
[2023-07-13 10:44] VITALS: BP 173/56; PULSE 79; RESP 14; TEMP 36.1; O2SAT 100
--- NOTE | 2023-07-13 11:14 | ED.FALL ---
HPI - Fall General Chief Complaint: Fall Stated Complaint: rolled out of bed History of Present Illness HPI Narrative: 63 old female presenting to the emergency department for evaluation after having a ground level fall at her care facility. Patient is unsure if she had a fall. Patient initially denies pain or injury but patient states she does have pain in in her left shoulder and in her right hip. Related Data Home Medications Medication Instructions Recorded Confirmed amlodipine 5 mg tablet 5 mg PO DAILY 04/04/23 04/04/23 arginine-calcium carbonate 1,000 1 cap PO DAILY 04/04/23 04/04/23 mg-25 mg capsule cholecalciferol (vitamin D3) 25 25 mcg PO DAILY 04/04/23 04/04/23 mcg (1,000 unit) capsule (Vitamin D3) enoxaparin 40 mg/0.4 mL 40 mg subcut DAILY 04/04/23 04/04/23 subcutaneous syringe ferrous sulfate 325 mg (65 mg 325 mg PO DAILY 04/04/23 04/04/23 iron) tablet lamotrigine 100 mg tablet 100 mg PO BID 04/04/23 04/04/23 metoprolol tartrate 25 mg tablet 12.5 mg PO BID 04/04/23 04/04/23 olanzapine 5 mg tablet 2.5 mg PO BID 04/04/23 04/04/23 olanzapine 5 mg tablet 5 mg PO QHS 04/04/23 04/04/23 pantoprazole 40 mg tablet,delayed 40 mg PO DAILY 04/04/23 04/04/23 release polyethylene glycol 3350 17 gram 17 g PO DAILY 04/04/23 04/04/23 oral powder packet (Miralax) prednisone 20 mg tablet 60 mg PO DAILY 04/04/23 04/04/23 ramelteon 8 mg tablet 8 mg PO HS 04/04/23 04/04/23 rosuvastatin 10 mg tablet 10 mg PO DAILY 04/04/23 04/04/23 sennosides 8.6 mg tablet (Senna 8.6 mg PO BID 04/04/23 04/04/23 Laxative) sulfamethoxazole 800 1 tablet PO QMWF 04/04/23 04/04/23 mg-trimethoprim 160 mg tablet Allergies Allergy/AdvReac Type Severity Reaction Status Date / Time No Known Allergies Allergy Verified 07/13/23 11:12 Review of Systems Review of Systems: All systems reviewed & are unremarkable except as noted in HPI and below PMFSH Past Medical History Medical History (Updated 07/13/23 @ 13:00 by Benja Reeves MD) Cerebrovascular accident 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 Chronic kidney disease Dementia Hypertension Seizures Toxoplasmosis Surgical History Surgical History No significant past surgical history Family History Family History (Updated 04/06/23 @ 14:52 by Arcelia Chowdary PA-C) Other Family history unknown Social History Social History (Updated 04/06/23 @ 14:53 by Arcelia Chowdary PA-C) Social History: Surrogate medical decision maker: Wicho Braxton, spouse. Code status: Full code. Smoking status: Former smoker Alcohol intake: unknown Substance use: unknown Spiritual care concerns: No Exam Narrative: APPEARANCE: Smiling but tearful, no distress HEAD: normocephalic, atraumatic. EYES: PERRLA/EOMI, conjunctivae clear. NOSE: Normal no drainage EARS:TMS clear with good light reflex. THROAT: Pharynx clear, no exudate. NECK: Supple. No adenopathy, no masses. RESPIRATORY: Airway patent, respirations nonlabored. Clear to auscultation bilaterally, no rales, rhonchi, wheezing. CARDIOVASCULAR: Regular rate and rhythm without murmurs rubs or gallops. ABDOMINAL: Soft, nontender, nondistended, normal bowel sounds MUSCULOSKELETAL: Tenderness to palpation of left shoulder and complaint of discomfort with rotation of the right hip. NEURO: Alert. Cranial nerves II through XII intact. Grossly intact SKIN: Warm, dry. Normal Color Course Course Emergency Course: 63 old female [facility]. Patient does complain of left shoulder pain but jail states this is chronic left shoulder pain. X-ray was negative for acute fracture of the right hip and patient is nonweightbearing at baseline. CT head showed no acute abnormality. Patient is her normal baseline and patient is being discharged back to her care facility. Was in no di
[2023-07-13 11:18] VITALS: BP 142/77; PULSE 64; RESP 16; O2SAT 94
[2023-07-13 13:12] VITALS: BP 141/80; PULSE 86; RESP 18; O2SAT 100
--- NOTE | 2023-07-13 13:12 | PC.NURSE ---
Per facility care staff, pt bedbound with a full 2 person assist for transfer. Pt also has chronic pain to left shoulder. MD notified of pt baseline and Okd for discharge. Facility given report on pt condition and notified pt being discharged, no questions per staff.
--- NOTE | 2023-07-13 13:47 | PC.NURSE ---
facility notified pt leaving via EMS now
== END 2023-07-13 13:50 ==
PROVIDERS: Emergency Provider Emergency Medicine; PCP Hospitalist
DX: S49.92XA Unspecified injury of left shoulder and upper arm, initial encounter (principal); S79.911A Unspecified injury of right hip, initial encounter; I12.9 Hypertensive chronic kidney disease with stage 1 through stage 4 chronic kidney disease, or unspecified chronic kidney disease; N18.9 Chronic kidney disease, unspecified; I69.920 Aphasia following unspecified cerebrovascular disease; I69.918 Other symptoms and signs involving cognitive functions following unspecified cerebrovascular disease; F03.90 Unspecified dementia, unspecified severity, without behavioral disturbance, psychotic disturbance, mood disturbance, and anxiety; Z74.01 Bed confinement status; W06.XXXA Fall from bed, initial encounter
CPT/HCPCS: 70450; 73030; 73502; 99284

== ENCOUNTER 2023-08-17 17:19 | Emergency (ER) | payer OTHER, SELFPAY ==
--- NOTE | ~2023-08-17 | CT_ITS ---
EXAMINATION: CT brain wo con DATE: 08/17/2023 19:19 INDICATION: sz . TECHNIQUE: Computed tomography (CT) of the head was performed without intravenous contrast. The mA wa s adjusted according to patient size. Iterative reconstruction technique was employed. The dose-lengt h product was 605.33 mGy-cm. COMPARISON: 07/13/2023. FINDINGS: No acute intracranial hemorrhage or extra-axial fluid collection. No hydrocephalus, mass, or herniation. No acute ischemic infarct. Unremarkable dural venous sinus attenuation. No acute osseous abnormality. The aerated spaces are clear. Severe atrophy and chronic white matter change. Atherosclerotic intracranial calcification. Old areas of infarction in the right cerebellum, left caudate head, left frontal, and left parietal lobes. IMPRESSION: No acute intracranial process. Reviewed, dictated and finalized at location K. TY OPERATOR APPRENTICE
--- NOTE | ~2023-08-17 | XR_ITS ---
EXAMINATION: XR chest 1V portable Exam Date/Time: 08/17/2023 18:23 EARTH SCIENCE TECHNICAL OFFICER HISTORY: Seizure Comparison: 04/04/2023. RESULT: Lines, tubes, and devices: Loop recorder. Lungs and pleura: Mild diffuse reticular opacities. Cardiomediastinal silhouette: Stable. Other: No acute osseous or upper abdominal finding. IMPRESSION: Mild interstitial edema. Reviewed, dictated and finalized at location K. H SCIENCE TECHNICAL OFFICER IMPRESSION: Mild interstitial edema.
[2023-08-17 17:37] VITALS: BP 143/100; PULSE 122; RESP 16; TEMP 36.8; O2SAT 100
--- NOTE | 2023-08-17 17:42 | ED.SEIZURE ---
HPI - Seizure General Chief Complaint: Seizure Stated Complaint: sz Time Seen by Provider: 08/17/23 17:41 Source: patient and EMS Mode of arrival: EMS Limitations: dementia History of Present Illness HPI Narrative: 63 years old female came from retirement with seizure-like activities. History of seizure, does not take her medications regularly, history of CVA and dementia. Patient baseline is awake otherwise disoriented Seizure History: Yes Related Data Home Medications Medication Instructions Recorded Confirmed amlodipine 5 mg tablet 5 mg PO DAILY 04/04/23 04/04/23 arginine-calcium carbonate 1,000 1 cap PO DAILY 04/04/23 04/04/23 mg-25 mg capsule cholecalciferol (vitamin D3) 25 25 mcg PO DAILY 04/04/23 04/04/23 mcg (1,000 unit) capsule (Vitamin D3) enoxaparin 40 mg/0.4 mL 40 mg subcut DAILY 04/04/23 04/04/23 subcutaneous syringe ferrous sulfate 325 mg (65 mg 325 mg PO DAILY 04/04/23 04/04/23 iron) tablet lamotrigine 100 mg tablet 100 mg PO BID 04/04/23 04/04/23 metoprolol tartrate 25 mg tablet 12.5 mg PO BID 04/04/23 04/04/23 olanzapine 5 mg tablet 2.5 mg PO BID 04/04/23 04/04/23 olanzapine 5 mg tablet 5 mg PO QHS 04/04/23 04/04/23 pantoprazole 40 mg tablet,delayed 40 mg PO DAILY 04/04/23 04/04/23 release polyethylene glycol 3350 17 gram 17 g PO DAILY 04/04/23 04/04/23 oral powder packet (Miralax) prednisone 20 mg tablet 60 mg PO DAILY 04/04/23 04/04/23 ramelteon 8 mg tablet 8 mg PO HS 04/04/23 04/04/23 rosuvastatin 10 mg tablet 10 mg PO DAILY 04/04/23 04/04/23 sennosides 8.6 mg tablet (Senna 8.6 mg PO BID 04/04/23 04/04/23 Laxative) sulfamethoxazole 800 1 tablet PO QMWF 04/04/23 04/04/23 mg-trimethoprim 160 mg tablet Allergies Allergy/AdvReac Type Severity Reaction Status Date / Time No Known Allergies Allergy Verified 07/13/23 11:12 Review of Systems Review of Systems: ROS unobtainable: Yes unobtainable due to medical condition and unobtainable due to mental status PMFSH Past Medical History Medical History Cerebrovascular accident 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 Chronic kidney disease Dementia Hypertension Seizures Toxoplasmosis Surgical History Surgical History No significant past surgical history Family History Family History Other Family history unknown Social History Social History Social History: Surrogate medical decision maker: Wicho Braxton, spouse. Code status: Full code. Smoking status: Former smoker Alcohol intake: unknown Substance use: unknown Spiritual care concerns: No Exam Narrative: General appearance: Well-developed, well-nourished, does not look in pain or distress Skin: Normal color Head: Normocephalic, nontraumatic Eyes: Clear conjunctiva ENT: Oropharynx normal, ears normal, nose normal Neck: Supple, nontender Chest and respiratory: Airway patent, no respiratory distress, no accessory muscle use Heart: Regular rate/rhythm Abdomen: Soft, nontender, no organomegaly, quiet bowel sounds Vascular: Normal peripheral pulses, normal capillary refill. Neurologic: Alert and oriented oriented to her name only Course Vital Signs Vital signs: Vital Signs Temperature 36.8 C 08/17/23 17:37 Pulse Rate 122 H 08/17/23 17:37 Respiratory Rate 16 08/17/23 17:37 Blood Pressure 143/100 H 08/17/23 17:37 Pulse Oximetry 100 08/17/23 17:37 Temperature 36.7 C 08/17/23 18:26 Pulse Rate 107 H 08/17
[2023-08-17 17:45] VITALS: BP 146/106; PULSE 122; RESP 18; O2SAT 100
--- NOTE | 2023-08-17 17:51 | ECG_ITS ---
Measurements Intervals [place] Rate: 103 P: 61 ND: 179 QRS: 4 QRSD: 82 T: -51 QT: 326 QTc: 428 Interpretive Statements SINUS TACHYCARDIA POSSIBLE LEFT ATRIAL ENLARGEMENT [-0.1mV P WAVE IN V1/V2] NONSPECIFIC ST AND T-WAVE ABNORMALITY ABNORMAL ECG COMPARED TO ECG 04/04/2023 17:18:11 NO SIGNIFICANT CHANGES Electronically Signed On 08-18-2023 7:05:36 HOSPITAL TELEVISION RENTAL CLERK by Ankur Teixeira M.D.
[2023-08-17 18:13] LABS: Appearance Urine Clear (Clear); Bacteria Urine None Seen /hpf; Bilirubin Urine Negative (Negative); Blood Urine Negative (Negative); Color Urine Yellow (Yellow); Glucose Urine UA Negative (Negative); Ketones Urine Negative (Negative); Leukocyte Esterase Ur 2+ LEU/UL (Negative); Nitrate Urine Negative (Negative); Non Pathogenic Casts 0-2; Protein Urine Trace mg/dL (Negative); RBC Urine 0-2 /hpf (0-2); Specific Grav Ur 1.015 (1.001-1.035); Squamous Epithelial Cell Urine Occasional /hpf (Few); WBC Urine 21-50 /hpf
[2023-08-17 18:19] LABS: Basophils Percent Auto 0.3 % (0.2-1.2); Eosinophils Absolute Auto 0.1 K/mm3 (0-0.3); Eosinophils Percent Auto 1.1 % (0-4.4); Hematocrit 42.6 % (37.0-47.0); Hemoglobin 12.5 g/dL (12.0-15.0); Immature Granulocyte Absolute 0.06 K/mm3 (0.00-0.031); Lymphocytes Absolute Auto 1.89 K/mm3 (0.9-3.2); Mean Corpuscular HGB Conc 29.3 g/dl (32-36); Mean Corpuscular Hemoglobin 22.8 pg (26-34); Mean Corpuscular Volume 77.7 fl (80-100); Monocytes Absolute Auto 0.5 K/mm3 (0.1-0.6); Monocytes Percent Auto 8.4 % (2.6-8.5); Neutrophils Absolute Auto 3.5 K/mm3 (1.3-6.7); Neutrophils Percent Auto 58.2 % (45.5-73.1); Platelet Count Result 342 k/mm3 (150-375); Red Blood Count 5.48 M/mm3 (4.2-5.4); Red Cell Distribution Width 21.4 % (11.5-14.5); White Blood Count 6.1 K/mm3 (4.5-10.0)
[2023-08-17 18:20] LABS: Add Urine Microscopic? YES
[2023-08-17 18:26] VITALS: BP 131/81; PULSE 107; RESP 20; TEMP 36.7; O2SAT 100
[2023-08-17 18:31] LABS: INR 0.9; Prothrombin Time 12.8 Seconds (11.1-14.7)
[2023-08-17 18:32] LABS: Partial Thromboplastin Time 24.6 SECONDS (22.3-36.8)
[2023-08-17] MEDS: levETIRAcetam 1000MG/NACL100ML 1,000 MG/100 ML BAG 400 MG IVPB (18:37)
[2023-08-17 18:40] LABS: Alanine Aminotransferase 20 U/L (6-35); Albumin Level 4.2 g/dL (3.5-5.1); Alkaline Phosphatase 64 U/L (38-126); Anion Gap 10 mmol/L (8-16); Aspartate Amino Transferase 29 U/L (14-36); Bilirubin,Total 0.5 mg/dL (0.2-1.3); Blood Urea Nitrogen 21 mg/dL (7-17); Calcium 9.6 mg/dL (8.4-10.2); Carbon Dioxide 21 mmol/L (22-30); Chloride 107 mmol/L (98-107); Estimated CRCL calculation 42 ml/min; Estimated Glomerular Filt Rate 50; Glucose 79 mg/dL (65-110); Potassium 4.3 mmol/L (3.4-5.0); Sodium 138 mmol/L (137-145)
[2023-08-17 18:46] VITALS: BP 111/69; PULSE 104; RESP 23
--- NOTE | 2023-08-17 19:18 | PC.NURSE ---
this rn assumed care of patient. this rn took patient report from LUBNA Guerra.
[2023-08-17 21:00] VITALS: BP 144/90; PULSE 94; RESP 17; O2SAT 99
[2023-08-17 21:32] VITALS: BP 144/81; PULSE 89; RESP 29; O2SAT 100
== END 2023-08-17 23:24 ==
PROVIDERS: Preventive Medicine Aerospace Medicine; Emergency Provider Emergency Medicine; PCP Hospitalist
DX: G40.909 Epilepsy, unspecified, not intractable, without status epilepticus (principal); T42.76XA Underdosing of unspecified antiepileptic and sedative-hypnotic drugs, initial encounter; Z91.128 Patient's intentional underdosing of medication regimen for other reason; N39.0 Urinary tract infection, site not specified; N18.9 Chronic kidney disease, unspecified; I69.920 Aphasia following unspecified cerebrovascular disease; I69.918 Other symptoms and signs involving cognitive functions following unspecified cerebrovascular disease; F03.90 Unspecified dementia, unspecified severity, without behavioral disturbance, psychotic disturbance, mood disturbance, and anxiety
CPT/HCPCS: 36415; 70450; 71045; 80053; 81001; 85025; 85610; 85730; 87086; 93005; 96365; 96367; 99284; J0696; J1953

== ENCOUNTER 2023-08-22 17:55 | Emergency (ER) | payer OTHER, SELFPAY ==
[2023-08-22] VITALS (13 sets, daily range): BP systolic 95–158; BP diastolic 55–96; PULSE 80–99; RESP 18–30; TEMP 36.8; O2SAT 91–100
--- NOTE | ~2023-08-22 | CT_ITS ---
EXAMINATION: CT brain wo con DATE: 08/22/2023 19:05 INDICATION: Seizure. TECHNIQUE: Computed tomography (CT) of the head was performed without intravenous contrast. The mA wa s adjusted according to patient size. Iterative reconstruction technique was employed. The dose-lengt h product was 756.67 mGy-cm. COMPARISON: Head CT 08/17/2023 FINDINGS: There are scattered areas of low attenuation in the cerebral white matter. There are old in farcts involving the bilateral basal ganglia and thalami. There are old infarcts in the left frontal and parietal lobes. There is no intracranial hemorrhage, acute infarction, or abnormal intracranial m ass lesion. There is an old infarct in the right cerebellum. The ventricles are normal in size. The o rbits are normal. The paranasal sinuses are clear. The mastoid air cells are normal. IMPRESSION: 1. Old infarcts in the brain. 2. Stable extensive nonspecific cerebral white matter disease, which likely represents chronic small vessel ischemic disease. Reviewed, dictated and finalized at location E. IPLE [employer] SANDER HELPER IMPRESSION: 1. Old infarcts in the brain. 2. Stable extensive nonspecific cerebral white matter disease, which likely rep resents chronic small vessel ischemic disease.
--- NOTE | ~2023-08-22 | XR_ITS ---
EXAMINATION: XR chest 1V portable DATE: 08/22/2023 19:27 INDICATION: Seizure. TECHNIQUE: A single frontal view of the chest was obtained. COMPARISON: Chest single view 08/17/2023 FINDINGS: There is no pneumonia, pleural effusion, or pneumothorax. Cardiomegaly is noted. There is a n electronic implant overlying left chest. IMPRESSION: 1. Cardiomegaly. Reviewed, dictated and finalized at location E. T CLERK IMPRESSION: 1. Cardiomegaly.
--- NOTE | 2023-08-22 18:24 | ECG_ITS ---
Measurements Intervals [place] Rate: 85 P: 49 [place]: 164 QRS: -13 QRSD: 78 T: 23 QT: 347 QTc: 415 Interpretive Statements SINUS RHYTHM BASELINE ARTIFACT NONSPECIFIC T-WAVE ABNORMALITY BORDERLINE ECG COMPARED TO ECG 08/17/2023 18:55:58 SINUS RHYTHM NOW PRESENT Electronically Signed On 08-23-2023 14:37:49 HEALTH AND SAFETY DIRECTOR by Marv Frias M.D.
--- NOTE | 2023-08-22 18:29 | ED.SEIZURE ---
HPI - Seizure General Chief Complaint: Seizure Stated Complaint: SZ Time Seen by Provider: 08/22/23 17:59 Source: EMS Mode of arrival: EMS Limitations: dementia History of Present Illness HPI Narrative: 63 YEARS OLD FEMALE, HISTORY OF DEMENTIA, SEIZURE, DEVELOPED MARI L SEIZURE LASTED FOR 2 MINUTES, AMBULANCE ARRIVED, PATIENT WAS POSTICTAL, ON ARRIVAL TO THE ED IS IMPROVING. CURRENTLY PATIENT ORIENTED TO HER NAME ONLY. PATIENT ON KEPPRA, LAMOTRIGINE AND OLANZAPINE. PATIENT DENIES ANY FEVER, CHILLS, NAUSEA, VOMITING, CHEST PAIN, SHORTNESS OF BREATH, HEADACHE OR BACK PAIN. MD complaint: seizure Seizure History: Yes Related Data Home Medications Medication Instructions Recorded Confirmed amlodipine 5 mg tablet 5 mg PO DAILY 04/04/23 04/04/23 arginine-calcium carbonate 1,000 1 cap PO DAILY 04/04/23 04/04/23 mg-25 mg capsule cholecalciferol (vitamin D3) 25 25 mcg PO DAILY 04/04/23 04/04/23 mcg (1,000 unit) capsule (Vitamin D3) enoxaparin 40 mg/0.4 mL 40 mg subcut DAILY 04/04/23 04/04/23 subcutaneous syringe ferrous sulfate 325 mg (65 mg 325 mg PO DAILY 04/04/23 04/04/23 iron) tablet lamotrigine 100 mg tablet 100 mg PO BID 04/04/23 04/04/23 metoprolol tartrate 25 mg tablet 12.5 mg PO BID 04/04/23 04/04/23 olanzapine 5 mg tablet 2.5 mg PO BID 04/04/23 04/04/23 olanzapine 5 mg tablet 5 mg PO QHS 04/04/23 04/04/23 pantoprazole 40 mg tablet,delayed 40 mg PO DAILY 04/04/23 04/04/23 release polyethylene glycol 3350 17 gram 17 g PO DAILY 04/04/23 04/04/23 oral powder packet (Miralax) prednisone 20 mg tablet 60 mg PO DAILY 04/04/23 04/04/23 ramelteon 8 mg tablet 8 mg PO HS 04/04/23 04/04/23 rosuvastatin 10 mg tablet 10 mg PO DAILY 04/04/23 04/04/23 sennosides 8.6 mg tablet (Senna 8.6 mg PO BID 10/06/23 10/06/23 Laxative) sulfamethoxazole 800 1 tablet PO QMWF 04/04/23 04/04/23 mg-trimethoprim 160 mg tablet Allergies Allergy/AdvReac Type Severity Reaction Status Date / Time No Known Allergies Allergy Verified 07/13/23 11:12 Review of Systems Review of Systems: All systems reviewed & are unremarkable except as noted in HPI and below PMFSH Past Medical History Medical History Cerebrovascular accident 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 Chronic kidney disease Dementia Hypertension Seizures Toxoplasmosis Surgical History Surgical History No significant past surgical history Family History Family History Other Family history unknown Social History Social History Social History: Surrogate medical decision maker: Wicho Braxton, spouse. Code status: Full code. Smoking status: Former smoker Alcohol intake: unknown Substance use: unknown Spiritual care concerns: No Exam Narrative: GENERAL APPEARANCE: WELL-DEVELOPED, WELL-NOURISHED SKIN: NORMAL COLOR HEAD: NORMOCEPHALIC, NONTRAUMATIC EYES: CLEAR CONJUNCTIVA ENT: OROPHARYNX NORMAL, EARS NORMAL, NOSE NORMAL NECK: SUPPLE, NONTENDER CHEST AND RESPIRATORY: AIRWAY PATENT, NO RESPIRATORY DISTRESS, NO ACCESSORY MUSCLE USE HEART: REGULAR RATE/RHYTHM ABDOMEN: SOFT, NONTENDER, NO ORGANOMEGALY, QUIET BOWEL SOUNDS VASCULAR: NORMAL PERIPHERAL PULSES, NORMAL CAPILLARY REFILL. MUSCULOSKELETAL: NORMAL RANGE OF MOTION, NONTENDER BACK NEUROLOGIC: ALERT AND ORIENTED TO HER NAME ONLY Course Vital Signs Vital signs: Vital Signs Temperature 36.8 C 08/22/23 18:01 Pulse Rate 99 08/22/23 18:01 Respiratory Rate
[2023-08-22] MEDS: levETIRAcetam 1000MG/NACL100ML 1,000 MG/100 ML BAG 400 MG IVPB (19:05)
[2023-08-22 19:30] LABS: Basophils Percent Auto 0.5 % (0.2-1.2); Eosinophils Absolute Auto 0.1 K/mm3 (0-0.3); Eosinophils Percent Auto 1.1 % (0-4.4); Hematocrit 45.2 % (37.0-47.0); Hemoglobin 13.2 g/dL (12.0-15.0); Immature Granulocyte Absolute 0.03 K/mm3 (0.00-0.031); Immature Granulocyte Percent A 0.5 % (0-0.5); Lymphocytes Absolute Auto 2.26 K/mm3 (0.9-3.2); Lymphocytes Percent Auto 36.6 % (18.3-44.2); Mean Corpuscular HGB Conc 29.2 g/dl (32-36); Mean Corpuscular Hemoglobin 23.1 pg (26-34); Mean Platelet Volume 9.7 fl (7.4-10.4); Monocytes Absolute Auto 0.5 K/mm3 (0.1-0.6); Monocytes Percent Auto 8.4 % (2.6-8.5); Neutrophils Absolute Auto 3.3 K/mm3 (1.3-6.7); Neutrophils Percent Auto 52.9 % (45.5-73.1); Platelet Count Result 385 k/mm3 (150-375); Red Blood Count 5.72 M/mm3 (4.2-5.4); Red Cell Distribution Width 22.2 % (11.5-14.5); White Blood Count 6.2 K/mm3 (4.5-10.0)
--- NOTE | 2023-08-22 19:34 | PC.NURSE ---
this rn took patient report from LUBNA Sabillon. this rn assumed care of pt.
--- NOTE | 2023-08-22 19:35 | PC.NURSE ---
Report given to LUBNA Haq.
[2023-08-22 19:43] LABS: INR 0.9; Partial Thromboplastin Time 24.6 SECONDS (22.3-36.8); Prothrombin Time 12.6 Seconds (11.1-14.7)
[2023-08-22 19:59] LABS: Anisocytosis 2+ (NORMAL); Ovalocytes 1+ (NORMAL); Platelet Estimate Increased (Adequate); Schistocytes None Seen (NORMAL)
[2023-08-22 20:01] LABS: Alanine Aminotransferase 26 U/L (6-35); Albumin Level 4.5 g/dL (3.5-5.1); Alkaline Phosphatase 72 U/L (38-126); Anion Gap 14 mmol/L (8-16); Aspartate Amino Transferase 32 U/L (14-36); Bilirubin,Total 0.4 mg/dL (0.2-1.3); Blood Urea Nitrogen 19 mg/dL (7-17); Calcium 9.5 mg/dL (8.4-10.2); Carbon Dioxide 21 mmol/L (22-30); Chloride 108 mmol/L (98-107); Creatine Kinase 85 U/L (30-135); Estimated CRCL calculation 43 ml/min; Estimated Glomerular Filt Rate 50; Glucose 120 mg/dL (65-110); Sodium 143 mmol/L (137-145)
[2023-08-22 20:51] LABS: Appearance Urine Clear (Clear); Bacteria Urine None Seen /hpf; Bilirubin Urine Negative (Negative); Blood Urine Negative (Negative); Color Urine Yellow (Yellow); Glucose Urine UA Negative (Negative); Ketones Urine Negative (Negative); Leukocyte Esterase Ur Trace LEU/UL (Negative); Nitrate Urine Negative (Negative); Protein Urine Trace mg/dL (Negative); RBC Urine 0-2 /hpf (0-2); Specific Grav Ur 1.021 (1.001-1.035); Squamous Epithelial Cell Urine Few /hpf (Few); Urobilinogen Urine 0.2 mg/dL (<2.0); pH Urine 5.5 (5.0-9.0)
[2023-08-22 21:11] LABS: Add Urine Microscopic? YES
[2023-08-22] MEDS: CIPROFLOXACIN 500 MG TAB PO (22:02)
--- NOTE | 2023-08-22 22:06 | PC.NURSE ---
this rn attempted to call report x3 to [facility] and was unsuccessful.
[2023-08-23 01:15] VITALS: BP 105/63; PULSE 90; RESP 17; O2SAT 100
== END 2023-08-23 03:17 ==
PROVIDERS: Emergency Provider Emergency Medicine; PCP Hospitalist
DX: G40.909 Epilepsy, unspecified, not intractable, without status epilepticus (principal); N39.0 Urinary tract infection, site not specified; I12.9 Hypertensive chronic kidney disease with stage 1 through stage 4 chronic kidney disease, or unspecified chronic kidney disease; N18.9 Chronic kidney disease, unspecified; I69.920 Aphasia following unspecified cerebrovascular disease; I69.318 Other symptoms and signs involving cognitive functions following cerebral infarction; F03.90 Unspecified dementia, unspecified severity, without behavioral disturbance, psychotic disturbance, mood disturbance, and anxiety; Z74.01 Bed confinement status; Z87.891 Personal history of nicotine dependence; I51.7 Cardiomegaly; R90.82 White matter disease, unspecified; R94.31 Abnormal electrocardiogram [ECG] [EKG]
CPT/HCPCS: 36415; 70450; 71045; 80053; 81001; 82550; 85025; 85610; 85730; 87086; 93005; 96365; 99284; A9270; J1953

== ENCOUNTER 2023-09-16 07:48 | Emergency (ER) | payer OTHER, SELFPAY ==
[2023-09-16] VITALS (7 sets, daily range): BP systolic 130–180; BP diastolic 73–104; PULSE 91–105; RESP 20–24; TEMP 36.8; O2SAT 97–100
--- NOTE | ~2023-09-16 | CT_ITS ---
EXAMINATION: CT brain wo con DATE: 09/16/2023 08:56 INDICATION: Seizure TECHNIQUE: Computed tomography (CT) of the head was performed without intravenous contrast. Sagittal and coronal reconstructions were performed. The mA was adjusted according to patient size. Iterative reconstruction technique was employed. The dose-length product was 681.00 mGy-cm. COMPARISON: head CT dated 08/22/2023 FINDINGS: A few small regions of encephalomalacia in the bilateral frontal and parietal lobes and in the right cerebellar hemisphere consistent with old infarcts. Additional small old lacunar infarct at the bilat eral heads of the caudate nuclei and in the right thalamus. Additionally there is extensive scattered white matter hypoattenuation consistent with chronic small vessel ischemic disease. No acute intracr anial hemorrhage or abnormal extra axial fluid collection. Symmetric prominence of the sulci and vent ricles consistent with mild age-appropriate diffuse cerebral volume loss. Normal cavum septum pelluci dum et vergae. No mass/mass effect. The orbits, paranasal sinuses and mastoid air cells are normal. IMPRESSION: 1. Several scattered old infarcts in bilateral cerebral hemispheres, bilateral basal ganglia, right t halamus and right cerebral hemisphere. No acute intracranial process. 2. Age-related changes including mild diffuse volume loss and extensive scattered white matter hypoat tenuation consistent with chronic small vessel ischemic disease. Reviewed, dictated and finalized at location A. IMPRESSION: 1. Several scattered old infarcts in bilateral cerebral hemispheres, bilateral basal ganglia, right thalamus and right cerebral hemisphere. No acute intracran ial process. 2. Age-related changes including mild diffuse volume loss and extensive scatter ed white matter hypoattenuation consistent with chronic small vessel ischemic d isease.
[2023-09-16 10:13] LABS: Basophils Percent Auto 0.5 % (0.2-1.2); Eosinophils Absolute Auto 0.1 K/mm3 (0-0.3); Eosinophils Percent Auto 0.6 % (0-4.4); Hematocrit 45.4 % (37.0-47.0); Hemoglobin 13.4 g/dL (12.0-15.0); Immature Granulocyte Absolute 0.21 K/mm3 (0.00-0.031); Immature Granulocyte Percent A 2.5 % (0-0.5); Mean Corpuscular HGB Conc 29.5 g/dl (32-36); Mean Corpuscular Hemoglobin 23.3 pg (26-34); Mean Platelet Volume 8.9 fl (7.4-10.4); Monocytes Absolute Auto 0.4 K/mm3 (0.1-0.6); Monocytes Percent Auto 5.3 % (2.6-8.5); Neutrophils Absolute Auto 5.6 K/mm3 (1.3-6.7); Neutrophils Percent Auto 67.1 % (45.5-73.1); Platelet Count Result 363 k/mm3 (150-375); Red Blood Count 5.75 M/mm3 (4.2-5.4); Red Cell Distribution Width 22.5 % (11.5-14.5); White Blood Count 8.3 K/mm3 (4.5-10.0)
[2023-09-16 10:15] LABS: Influenza A QL RT-PCR Negative (Negative); Influenza B QL RT-PCR Negative (Negative); RSV RNA, RT-PCR Negative (Negative); SARS-CoV-2 RNA PCR Negative (Negative)
--- NOTE | 2023-09-16 10:16 | ED.GENADULT ---
HPI - General Adult General Chief complaint: Seizure Stated complaint: seizure this AM Time Seen by Provider: 09/16/23 08:32 History of Present Illness HPI narrative: [age] female present to the emergency department for evaluation after having a seizure. Patient does have history of dementia and resides at a local care facility. Patient states she has seizures approximately once a week. Patient denies any pain or injury. Patient is unsure why she was transferred to the emergency department. During patient's last visit she was evaluated for breakthrough seizure and was found to have a urinary tract infection. At that time patient was started on antibiotics and patient's Keppra was increased to 1 g b.i.d. Related Data Home Medications Medication Instructions Recorded Confirmed amlodipine 5 mg tablet 5 mg PO DAILY 04/04/23 04/04/23 arginine-calcium carbonate 1,000 1 cap PO DAILY 04/04/23 04/04/23 mg-25 mg capsule cholecalciferol (vitamin D3) 25 25 mcg PO DAILY 04/04/23 04/04/23 mcg (1,000 unit) capsule (Vitamin D3) enoxaparin 40 mg/0.4 mL 40 mg subcut DAILY 04/04/23 04/04/23 subcutaneous syringe ferrous sulfate 325 mg (65 mg 325 mg PO DAILY 04/04/23 04/04/23 iron) tablet lamotrigine 100 mg tablet 100 mg PO BID 04/04/23 04/04/23 metoprolol tartrate 25 mg tablet 12.5 mg PO BID 04/04/23 04/04/23 olanzapine 5 mg tablet 2.5 mg PO BID 04/04/23 04/04/23 olanzapine 5 mg tablet 5 mg PO QHS 04/04/23 04/04/23 pantoprazole 40 mg tablet,delayed 40 mg PO DAILY 04/04/23 04/04/23 release polyethylene glycol 3350 17 gram 17 g PO DAILY 04/04/23 04/04/23 oral powder packet (Miralax) prednisone 20 mg tablet 60 mg PO DAILY 04/04/23 04/04/23 ramelteon 8 mg tablet 8 mg PO HS 04/04/23 04/04/23 rosuvastatin 10 mg tablet 10 mg PO DAILY 04/04/23 04/04/23 sennosides 8.6 mg tablet (Senna 8.6 mg PO BID 04/04/23 04/04/23 Laxative) sulfamethoxazole 800 1 tablet PO QMWF 04/04/23 04/04/23 mg-trimethoprim 160 mg tablet Allergies Allergy/AdvReac Type Severity Reaction Status Date / Time No Known Allergies Allergy Verified 07/13/23 11:12 Review of Systems Review of Systems: All systems reviewed & are unremarkable except as noted in HPI and below PMFSH Past Medical History Medical History Cerebrovascular accident 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 Chronic kidney disease Dementia Hypertension Seizures Toxoplasmosis Surgical History Surgical History No significant past surgical history Family History Family History Other Family history unknown Social History Social History Social History: Surrogate medical decision maker: Wicho Braxton, spouse. Code status: Full code. Smoking status: Former smoker Alcohol intake: unknown Substance use: unknown Spiritual care concerns: No Exam Narrative: APPEARANCE: Well appearing, no pain, no distress, well-nourished. HEAD: normocephalic, atraumatic. EYES: PERRLA/EOMI, conjunctivae clear. NOSE: Normal no drainage EARS:TMS clear with good light reflex. THROAT: Pharynx clear, no exudate. NECK: Supple. No adenopathy, no masses. RESPIRATORY: Airway patent, respirations nonlabored. Clear to auscultation bilaterally, no rales, rhonchi, wheezing. CARDIOVASCULAR: Regular rate and rhythm without murmurs rubs or gallops. ABDOMINAL: Soft, nontender, nondistended, normal bowel sounds MUSCULOSKELETAL: Moves all extremities. Strength/ROM intact, No edema, No calf tenderness. NEURO: Alert. Cranial nerves II through XII intact. Grossly intact SKIN: Warm, dry. Normal Color Course Course Emergency Course: Patient was no longer postictal was back to her normal baseline was discharged back to her care facility Vital Signs Vital signs: Vital
[2023-09-16 10:22] LABS: Alanine Aminotransferase 17 U/L (6-35); Albumin Level 4.4 g/dL (3.5-5.1); Alkaline Phosphatase 78 U/L (38-126); Anion Gap 6 mmol/L (8-16); Aspartate Amino Transferase 26 U/L (14-36); Bilirubin,Total 0.5 mg/dL (0.2-1.3); Blood Urea Nitrogen 22 mg/dL (7-17); Calcium 9.5 mg/dL (8.4-10.2); Carbon Dioxide 30 mmol/L (22-30); Chloride 108 mmol/L (98-107); Estimated CRCL calculation 42 ml/min; Estimated Glomerular Filt Rate 50; Glucose 97 mg/dL (65-110); Potassium 4.5 mmol/L (3.4-5.0); Sodium 144 mmol/L (137-145)
[2023-09-16 10:24] LABS: Anisocytosis 2+; Hypochromasia 1+; Microcytosis 1+ (NORMAL); Ovalocytes 1+; Platelet Estimate Adequate (Adequate); Schistocytes None Seen
--- NOTE | 2023-09-16 12:43 | PC.NURSE ---
Attempted straight cath x2. Pt was extremely combative, hitting and cursing at the 4 staff members attempting to hold her and cath her
== END 2023-09-16 14:06 ==
PROVIDERS: Emergency Provider Emergency Medicine; PCP Hospitalist
DX: G40.909 Epilepsy, unspecified, not intractable, without status epilepticus (principal); I69.920 Aphasia following unspecified cerebrovascular disease; I69.318 Other symptoms and signs involving cognitive functions following cerebral infarction; F03.90 Unspecified dementia, unspecified severity, without behavioral disturbance, psychotic disturbance, mood disturbance, and anxiety; I12.9 Hypertensive chronic kidney disease with stage 1 through stage 4 chronic kidney disease, or unspecified chronic kidney disease; N18.9 Chronic kidney disease, unspecified; Z74.01 Bed confinement status; Z87.891 Personal history of nicotine dependence
CPT/HCPCS: 36415; 70450; 80053; 85025; 87637; 99284

== ENCOUNTER 2023-09-29 11:43 | Emergency (ER) | payer OTHER, SELFPAY ==
--- NOTE | ~2023-09-29 | CT_ITS ---
EXAMINATION: CT brain wo con DATE: 09/29/2023 12:27 INDICATION: tia . TECHNIQUE: Computed tomography (CT) of the head was performed without intravenous contrast. The mA wa s adjusted according to patient size. Iterative reconstruction technique was employed. The dose-lengt h product was 681.00 mGy-cm. COMPARISON: 09/16/2023. FINDINGS: No acute intracranial hemorrhage or extra-axial fluid collection. No hydrocephalus, mass, or herniation. No acute ischemic infarct. Unremarkable dural venous sinus attenuation. No acute osseous abnormality. The aerated spaces are clear. Moderate atrophy and severe chronic white matter change. Atherosclerotic intracranial calcification. Cavum of septum pellucidum et vergae. Focal areas of encephalomalacia in the bilateral frontal, [place] lobes, and right cerebellar hemisphere. Bilateral focal old basal ganglia lacunar infarcts. IMPRESSION: No acute intracranial process. Reviewed, dictated and finalized at location K.
[2023-09-29 11:34] VITALS: O2SAT 100
[2023-09-29 11:49] VITALS: BP 173/96; PULSE 98; RESP 20; TEMP 36.5; O2SAT 100
[2023-09-29 11:52] VITALS: BP 173/96; PULSE 95; RESP 20; TEMP 36.6; O2SAT 99
--- NOTE | 2023-09-29 11:52 | ECG_ITS ---
Measurements Intervals [place] Rate: 93 P: 41 IA: 156 QRS: -35 QRSD: 82 T: 37 QT: 338 QTc: 422 Interpretive Statements SINUS RHYTHM POSSIBLE LEFT ATRIAL ENLARGEMENT [-0.1mV P WAVE IN V1/V2] MARKED LEFT AXIS DEVIATION [QRS AXIS < -30] POOR R-WAVE PROGRESSION NONSPECIFIC T-WAVE ABNORMALITY ABNORMAL ECG COMPARED TO ECG 08/22/2023 19:30:43 AXIS IS MORE LEFTWARD, NO OTHER SIGNIFICANT CHANGE Electronically Signed On 09-29-2023 13:18:09 CDT by Ankur Teixeira M.D.
[2023-09-29 12:07] LABS: Glucose Point of Care 115 mg/dl (65-105)
[2023-09-29 12:54] VITALS: BP 173/83; PULSE 99; RESP 20; O2SAT 98
[2023-09-29 12:59] LABS: Basophils Percent Auto 0.3 % (0.2-1.2); Eosinophils Percent Auto 0.1 % (0-4.4); Hematocrit 48.9 % (37.0-47.0); Hemoglobin 14.4 g/dL (12.0-15.0); Immature Granulocyte Absolute 0.09 K/mm3 (0.00-0.031); Immature Granulocyte Percent A 1.2 % (0-0.5); Lymphocytes Absolute Auto 1.05 K/mm3 (0.9-3.2); Lymphocytes Percent Auto 13.9 % (18.3-44.2); Mean Corpuscular HGB Conc 29.4 g/dl (32-36); Mean Corpuscular Hemoglobin 23.7 pg (26-34); Mean Corpuscular Volume 80.6 fl (80-100); Mean Platelet Volume 9.1 fl (7.4-10.4); Monocytes Absolute Auto 0.2 K/mm3 (0.1-0.6); Monocytes Percent Auto 2.6 % (2.6-8.5); Neutrophils Absolute Auto 6.2 K/mm3 (1.3-6.7); Neutrophils Percent Auto 81.9 % (45.5-73.1); Platelet Count Result 387 k/mm3 (150-375); Red Blood Count 6.07 M/mm3 (4.2-5.4); Red Cell Distribution Width 22.8 % (11.5-14.5); White Blood Count 7.6 K/mm3 (4.5-10.0)
[2023-09-29 13:10] LABS: Alanine Aminotransferase 22 U/L (6-35); Albumin Level 4.6 g/dL (3.5-5.1); Alkaline Phosphatase 79 U/L (38-126); Anion Gap 9 mmol/L (4-12); Aspartate Amino Transferase 25 U/L (14-36); Bilirubin,Total 0.7 mg/dL (0.2-1.3); Blood Urea Nitrogen 24 mg/dL (7-17); Calcium 9.9 mg/dL (8.4-10.2); Carbon Dioxide 26 mmol/L (22-30); Chloride 106 mmol/L (98-107); Estimated CRCL calculation 53 ml/min; Estimated Glomerular Filt Rate > 60; Glucose 113 mg/dL (65-110); Potassium 4.9 mmol/L (3.4-5.0); Sodium 141 mmol/L (137-145)
[2023-09-29 13:13] LABS: Partial Thromboplastin Time 25.7 Seconds (22.3-36.8)
[2023-09-29 13:14] LABS: INR 0.9; Prothrombin Time 12.5 Seconds (11.1-14.7)
[2023-09-29 13:15] LABS: Platelet Estimate Adequate (Adequate)
[2023-09-29 13:16] LABS: Ovalocytes 1+; Poikilocytosis 1+; Schistocytes Rare
[2023-09-29 13:21] LABS: Troponin I 0.027 ng/mL (0.000-0.034)
[2023-09-29 14:12] VITALS: BP 160/82; PULSE 110; RESP 20
--- NOTE | 2023-09-29 14:37 | ED.NEUROSD ---
HPI - Neuro Symptoms/Deficit General Chief Complaint: Neuro Symptoms/Deficit Stated Complaint: CVA? Time Seen by Provider: 09/29/23 11:56 Source: EMS Mode of arrival: EMS Limitations: dementia History of Present Illness HPI Narrative: 63-year-old with a history of CVA, dementia, COPD, PU, TIA was sent from a [facility] for a right-sided facial droop earlier this morning by the time EMS was at the fdc her symptoms have resolved. Patient upon arrival has no complaints. She denied any headache, chest pain. Related Data Home Medications Medication Instructions Recorded Confirmed amlodipine 5 mg tablet 5 mg PO DAILY 04/04/23 04/04/23 arginine-calcium carbonate 1,000 1 cap PO DAILY 04/04/23 04/04/23 mg-25 mg capsule cholecalciferol (vitamin D3) 25 25 mcg PO DAILY 04/04/23 04/04/23 mcg (1,000 unit) capsule (Vitamin D3) enoxaparin 40 mg/0.4 mL 40 mg subcut DAILY 04/04/23 04/04/23 subcutaneous syringe ferrous sulfate 325 mg (65 mg 325 mg PO DAILY 04/04/23 04/04/23 iron) tablet lamotrigine 100 mg tablet 100 mg PO BID 04/04/23 04/04/23 metoprolol tartrate 25 mg tablet 12.5 mg PO BID 04/04/23 04/04/23 olanzapine 5 mg tablet 2.5 mg PO BID 04/04/23 04/04/23 olanzapine 5 mg tablet 5 mg PO QHS 04/04/23 04/04/23 pantoprazole 40 mg tablet,delayed 40 mg PO DAILY 04/04/23 04/04/23 release polyethylene glycol 3350 17 gram 17 g PO DAILY 04/04/23 04/04/23 oral powder packet (Miralax) prednisone 20 mg tablet 60 mg PO DAILY 04/04/23 04/04/23 ramelteon 8 mg tablet 8 mg PO HS 04/04/23 04/04/23 rosuvastatin 10 mg tablet 10 mg PO DAILY 04/04/23 04/04/23 sennosides 8.6 mg tablet (Senna 8.6 mg PO BID 04/04/23 04/04/23 Laxative) sulfamethoxazole 800 1 tablet PO QMWF 10/06/23 10/06/23 mg-trimethoprim 160 mg tablet Allergies Allergy/AdvReac Type Severity Reaction Status Date / Time No Known Allergies Allergy Verified 07/13/23 11:12 Review of Systems Constitutional: Constitutional: Reports no additional constitutional complaints Eyes: Eyes: Reports no additional eye complaints ENT: Reports system reviewed and no additional complaints, except as documented Cardiovascular: Cardiovascular: Reports no additional cardiovascular complaints Respiratory: Respiratory: Reports no additional respiratory complaints Gastrointestinal: Gastrointestinal: Reports no additional gastrointestinal complaints Musculoskeletal: Musculoskeletal: Reports no additional musculoskeletal complaints Neurologic: Reports as per HPI Endocrine: Endocrine: Reports no additional endocrine complaints PMFSH Past Medical History Medical History Cerebrovascular accident 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 Chronic kidney disease Dementia Hypertension Seizures Toxoplasmosis Surgical History Surgical History No significant past surgical history Family History Family History Other Family history unknown Social History Social History Social History: Surrogate medical decision maker: Wicho Braxton, spouse. Code status: Full code. Smoking status: Former smoker Alcohol intake: unknown Substance use: unknown Spiritual care concerns: No Exam Narrative: GENERAL: Well-appearing, well-nourished, and in no acute distress. HEAD: Normocephalic, atraumatic. EYES: PERRLA and EOMI. ENT: Nares clear, no rhinorrhea or epistaxis. Mucous membranes moist. NECK: Supple. CHEST: Clear to auscultation. No respiratory distress. HEART: Regular rate and rhythm. No murmur heard. Normal peripheral pulses. ABDOMEN: Soft, nontender, nondistended, normal active bowel sounds. EXTREMITIES: Normal range of motion. No edema. SKIN: Warm, dry, no rash. NEURO: No focal deficits. Alert and oriented x2 ( her base line).
[2023-09-29 15:44] VITALS: BP 146/88; PULSE 114; RESP 20; O2SAT 96
== END 2023-09-29 22:00 ==
PROVIDERS: Emergency Provider Family Medicine; PCP Hospitalist
DX: G45.9 Transient cerebral ischemic attack, unspecified (principal); J44.9 Chronic obstructive pulmonary disease, unspecified; I69.920 Aphasia following unspecified cerebrovascular disease; I69.318 Other symptoms and signs involving cognitive functions following cerebral infarction; F03.90 Unspecified dementia, unspecified severity, without behavioral disturbance, psychotic disturbance, mood disturbance, and anxiety; I12.9 Hypertensive chronic kidney disease with stage 1 through stage 4 chronic kidney disease, or unspecified chronic kidney disease; N18.9 Chronic kidney disease, unspecified; R94.31 Abnormal electrocardiogram [ECG] [EKG]
CPT/HCPCS: 36415; 70450; 80053; 82948; 84484; 85025; 85610; 85730; 93005; 99284

== ENCOUNTER 2023-10-01 08:53 | Inpatient (IN) | payer OTHER, SELFPAY ==
[2023-10-01] VITALS (16 sets, daily range): BP systolic 116–162; BP diastolic 62–96; PULSE 68–95; RESP 16–25; TEMP 36.3–36.6; O2SAT 96–100
--- NOTE | ~2023-10-01 | XR_ITS ---
EXAMINATION: XR chest 2V DATE: 10/01/2023 11:24 INDICATION: Weakness. TECHNIQUE: Frontal and lateral views of the chest were obtained. COMPARISON: Chest 08/22/2023, CT abdomen and pelvis 10/01/2023 FINDINGS: There is interstitial pattern in the lungs, consistent mild pulmonary edema. No pleural eff usion or pneumothorax. Cardiomegaly is noted. There is an electronic implant in left anterior chest w all. IMPRESSION: 1. Mild pulmonary edema. 2. Cardiomegaly. Reviewed, dictated and finalized at location A.
--- NOTE | ~2023-10-01 | US_ITS ---
EXAMINATION: US venous doppler [facility] DATE: 10/02/2023 10:24 INDICATION: Right iliac vein thrombosis. TECHNIQUE: Grayscale ultrasound images without and with compression and Doppler ultrasound images of the bilateral lower extremity veins were obtained. COMPARISON: CT abdomen and pelvis 10/01/2023 FINDINGS: The visualized portions of right common femoral vein, profunda (deep) femoral vein, femoral vein, pop liteal vein, peroneal veins, posterior tibial veins, and greater saphenous vein outflow are patent. The visualized portions of left common femoral vein, profunda femoral vein, femoral vein, popliteal v ein, peroneal veins, posterior tibial veins, and greater saphenous vein outflow are patent. IMPRESSION: 1. No deep venous thrombosis. Reviewed, dictated and finalized at location A.
--- NOTE | ~2023-10-01 | CT_ITS ---
CT of the Abdomen and Pelvis: Indication: Hernia pain Technique: 2.5 mm axial scans were obtained through the abdomen and pelvis following intravenous adm inistration of 100 cc of Omnipaque 350. Dose reduction technique was used on this scan by utilizing a utomated exposure control and iterative reconstruction technique. The dose-length product (DLP) was 1 479.91 mGy-cm. Findings: Scans through the lung bases are unremarkable. The liver, spleen, pancreas, gallbladder, and adrenal glands are within normal limits. Suggestion of subtle areas of decreased enhancement in the bilateral renal cortices, most notable at the anterior l eft kidney. 4 mm nonobstructing left renal stone present. No evidence of aortic aneurysm. No lymphad enopathy. No bowel obstruction or bowel wall thickening. There is no evidence to suggest acute appendicitis. Pr obable fecal impaction/constipation. Probable focal thrombus noted within the right common iliac vein approaching the confluence at the origin of the IVC. Images through the pelvis were performed. Urinary bladder unremarkable. No adnexal mass seen. No asci kiera. Mild compression deformity of L3 noted at the superior endplate region. Impression: Subtle areas of decreased enhancement in both kidneys. Consider pyelonephritis. Focal thrombus within the right common iliac vein. Fecal impaction/constipation. 4 mm nonobstructing left renal stone. L3 compression deformity, likely chronic. Reviewed, dictated and finalized at [facility]. Impression: Subtle areas of decreased enhancement in both kidneys. Consider pyelonephritis. Focal thrombus within the right common iliac vein. Fecal impaction/constipation. 4 mm nonobstructing left renal stone. L3 compression deformity, likely chronic.
[2023-10-01 10:11] LABS: Basophils Percent Auto 0.4 % (0.2-1.2); Eosinophils Absolute Auto 0.1 K/mm3 (0-0.3); Eosinophils Percent Auto 0.6 % (0-4.4); Hematocrit 45.5 % (37.0-47.0); Hemoglobin 13.5 g/dL (12.0-15.0); Immature Granulocyte Percent A 1.3 % (0-0.5); Lymphocytes Percent Auto 36.7 % (18.3-44.2); Mean Corpuscular HGB Conc 29.7 g/dl (32-36); Mean Corpuscular Hemoglobin 23.8 pg (26-34); Mean Corpuscular Volume 80.1 fl (80-100); Mean Platelet Volume 9.3 fl (7.4-10.4); Monocytes Absolute Auto 0.5 K/mm3 (0.1-0.6); Monocytes Percent Auto 6.4 % (2.6-8.5); Neutrophils Absolute Auto 4.3 K/mm3 (1.3-6.7); Neutrophils Percent Auto 54.6 % (45.5-73.1); Platelet Count Result 345 k/mm3 (150-375); Red Blood Count 5.68 M/mm3 (4.2-5.4); Red Cell Distribution Width 22.5 % (11.5-14.5); White Blood Count 7.9 K/mm3 (4.5-10.0)
[2023-10-01 10:27] LABS: Alanine Aminotransferase 21 U/L (6-35); Alkaline Phosphatase 67 U/L (38-126); Anion Gap 7 mmol/L (4-12); Aspartate Amino Transferase 19 U/L (14-36); Bilirubin,Total 0.7 mg/dL (0.2-1.3); Blood Urea Nitrogen 26 mg/dL (7-17); Calcium 9.3 mg/dL (8.4-10.2); Carbon Dioxide 27 mmol/L (22-30); Chloride 105 mmol/L (98-107); Estimated Glomerular Filt Rate 42; Glucose 129 mg/dL (65-110); Potassium 3.5 mmol/L (3.4-5.0); Sodium 139 mmol/L (137-145)
[2023-10-01 10:51] LABS: Platelet Estimate Adequate (Adequate)
[2023-10-01 10:52] LABS: Anisocytosis 1+; Hypochromasia 1+; Poikilocytosis 1+; Target Cells 1+
[2023-10-01 10:57] LABS: Appearance Urine Clear (Clear); Bacteria Urine 4+ /hpf; Bilirubin Urine Negative (Negative); Blood Urine Negative (Negative); Color Urine Yellow (Yellow); Glucose Urine UA Negative (Negative); Ketones Urine Trace mg/dL (Negative); Leukocyte Esterase Ur 2+ LEU/UL (Negative); Nitrate Urine Positive (Negative); Non Pathogenic Casts 0-2; Protein Urine Negative (Negative); RBC Urine 0-2 /hpf (0-2); Specific Grav Ur 1.023 (1.001-1.035); Squamous Epithelial Cell Urine Occasional /hpf (Few); WBC Urine 51-100 /hpf (0-3); pH Urine 5.5 (5.0-9.0)
[2023-10-01 11:16] LABS: Schistocytes None Seen
[2023-10-01 11:16] LABS: Add Urine Microscopic? YES
--- NOTE | 2023-10-01 11:19 | ED.GENADULT ---
HPI - General Adult General Chief complaint: Weakness Stated complaint: not feeling well Time Seen by Provider: 10/01/23 08:55 History of Present Illness HPI narrative: Patient is a 63-year-old female who [facility]. Patient has had multiple visits the ER. Couple days ago she was here to be evaluated for TIA and then went home. Patient is on Lovenox injections. She has no complaints at this time but can also not verbalize why she is here. She appears dry around her mouth. Related Data Home Medications Medication Instructions Recorded Confirmed amlodipine 5 mg tablet 5 mg PO DAILY 04/04/23 10/01/23 cholecalciferol (vitamin D3) 25 25 mcg PO DAILY 04/04/23 10/01/23 mcg (1,000 unit) capsule (Vitamin D3) enoxaparin 40 mg/0.4 mL 40 mg subcut DAILY 04/04/23 10/01/23 subcutaneous syringe ferrous sulfate 325 mg (65 mg 325 mg PO QMWFSU 04/04/23 10/01/23 iron) tablet lamotrigine 100 mg tablet 100 mg PO BID 04/04/23 10/01/23 metoprolol tartrate 25 mg tablet 12.5 mg PO BID 04/04/23 10/01/23 olanzapine 5 mg tablet 2.5 mg PO BID 04/04/23 10/01/23 olanzapine 5 mg tablet 5 mg PO QHS 04/04/23 10/01/23 pantoprazole 40 mg tablet,delayed 40 mg PO DAILY 04/04/23 10/01/23 release polyethylene glycol 3350 17 gram 17 g PO DAILY 04/04/23 10/01/23 oral powder packet (Miralax) prednisone 20 mg tablet 60 mg PO DAILY 04/04/23 10/01/23 rosuvastatin 10 mg tablet 10 mg PO DAILY 04/04/23 10/01/23 sulfamethoxazole 800 1 tablet PO QMWF 04/04/23 10/01/23 mg-trimethoprim 160 mg tablet calcium carbonate 500 mg calcium 500 mg PO DAILY 10/01/23 10/01/23 (1,250 mg) tablet ondansetron 4 mg disintegrating 4 mg PO Q8H PRN Nausea And Vomiting 10/01/23 10/01/23 tablet sennosides 8.6 mg-docusate sodium 1 tab-cap PO BID 10/01/23 10/01/23 50 mg tablet (Senna-S) trazodone 50 mg tablet 50 mg PO HS 10/01/23 10/01/23 Allergies Allergy/AdvReac Type Severity Reaction Status Date / Time No Known Allergies Allergy Verified 10/01/23 09:39 Review of Systems Review of Systems: ROS unobtainable: Yes unobtainable due to mental status PMFSH Past Medical History Medical History (Updated 10/01/23 @ 18:55 by Aleksandar Zelaya MD) Cerebrovascular accident 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 Chronic kidney disease Dementia Hypertension Seizures Toxoplasmosis Surgical History Surgical History No significant past surgical history Family History Family History Other Family history unknown Social History Social History Social History: Surrogate medical decision maker: Wicho Braxton, spouse. Code status: Full code. Smoking status: Former smoker Alcohol intake: unknown Substance use: unknown Spiritual care concerns: No Exam Narrative: GENERAL: Well-appearing, well-nourished, and in no acute distress. HEAD: Normocephalic, atraumatic. ENT: Dry mucous membranes NECK: Supple. CHEST: Clear to auscultation. No respiratory distress. HEART: Regular rate and rhythm. Normal peripheral pulses. ABDOMEN: Soft, nontender, nondistended. EXTREMITIES: Normal range of motion. No edema. SKIN: Warm, dry, no rash. NEURO: Alert and oriented x1. PSYCH: Normal mood and affect. Course Course Emergency Course: incidental DVT found on CT abdomen pelvis. Patient with infected urine and evidence of pyelonephritis on CT as well. Admit for observation and started on IV antibiotics. Patient accepted by the hospitalist service. Vital Signs Vital signs: Vital Signs Temperature 97.9 F 10/01/23 08:53 Pulse Rate 91 10/01/23 08:53 Respiratory Rate 20 10/01/23 08:53 Blood Pressure 162/96 H 10/01/23 08:53 Pulse Oximetry 100 10/01/23 08:53 Oxygen Delivery Room Air 10/01/23 08:53 Tem
[2023-10-01] MEDS: SODIUM CHLORIDE 0.9% IV 1,000 ML 999 ML IV CONT (11:44)
[2023-10-01 12:25] LABS: Influenza A QL RT-PCR Negative (Negative); Influenza B QL RT-PCR Negative (Negative); RSV RNA, RT-PCR Negative (Negative); SARS-CoV-2 RNA PCR Negative (Negative)
[2023-10-01] MEDS: SODIUM CHLORIDE 0.9% IV 1,000 ML 125 ML IV CONT ×2 (13:38→22:13)
--- NOTE | 2023-10-01 14:21 | PM.IMHP ---
H&P: HPI History of Present Illness Date/Time: 10/01/23 14:21 Chief Complaint: general weakness and abdominal pain Narrative: 63-year-old female with a PMHx: of CVA, dementia, COPD presented to the emergency room via EMS from [facility] who reported patient was not feeling well along with general weakness, of note patient was recently seen and discharged on 09/29/2023 for an episode of right-sided facial droop that resolved by the time EMS arrived. Patient is unable to provide reliable history due to dementia diagnosis. She reports RUQ during exam, but denies any chest pain, nausea vomiting fever chills at this time. ED Work-up reveals: Initial vitals: b/p: 145/78, rr: 20, pr: 86, sp02: 100% on RA, T: 97.4, creatinine 1.50, BUN 26, urine with positive nitrates, elevated wbc's, positive for urinary tract infection, urine culture pending, abdominal CT, subtle areas of decreased enhancement in both kidneys consider pyelonephritis, focal thrombosis within the right common iliac vein, fecal impaction /constipation along with a 4 mm nonobstructing left renal stone. CXR pending Review of Systems Review of Systems: ROS unobtainable: Yes unobtainable due to mental status PMFSH Past Medical History Medical History (Updated 10/01/23 @ 16:41 by Eloina Chahal APRN) Cerebrovascular accident 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 Chronic kidney disease Dementia Hypertension Seizures Toxoplasmosis Surgical History Surgical History No significant past surgical history Family History Family History Other Family history unknown Social History Social History Social History: Surrogate medical decision maker: Wicho Braxton, spouse. Code status: Full code. Smoking status: Former smoker Alcohol intake: unknown Substance use: unknown Spiritual care concerns: No Meds Home Medications and Allergies Home Medications Medication Instructions Recorded Confirmed Type amlodipine 5 mg tablet 5 mg PO DAILY 04/04/23 10/01/23 History cholecalciferol (vitamin D3) 25 25 mcg PO DAILY 04/04/23 10/01/23 History mcg (1,000 unit) capsule (Vitamin D3) enoxaparin 40 mg/0.4 mL 40 mg subcut DAILY 04/04/23 10/01/23 History subcutaneous syringe ferrous sulfate 325 mg (65 mg 325 mg PO QMWFSU 04/04/23 10/01/23 History iron) tablet lamotrigine 100 mg tablet 100 mg PO BID 04/04/23 10/01/23 History metoprolol tartrate 25 mg tablet 12.5 mg PO BID 04/04/23 10/01/23 History olanzapine 5 mg tablet 2.5 mg PO BID 04/04/23 10/01/23 History olanzapine 5 mg tablet 5 mg PO QHS 04/04/23 10/01/23 History pantoprazole 40 mg tablet,delayed 40 mg PO DAILY 04/04/23 10/01/23 History release polyethylene glycol 3350 17 gram 17 g PO DAILY 04/04/23 10/01/23 History oral powder packet (Miralax) prednisone 20 mg tablet 60 mg PO DAILY 04/04/23 10/01/23 History rosuvastatin 10 mg tablet 10 mg PO DAILY 04/04/23 10/01/23 History sulfamethoxazole 800 1 tablet PO QMWF 04/04/23 10/01/23 History mg-trimethoprim 160 mg tablet calcium carbonate 500 mg calcium 500 mg PO DAILY 10/01/23 10/01/23 History (1,250 mg) tablet ondansetron 4 mg disintegrating 4 mg PO Q8H PRN Nausea And Vomiting 10/01/23 10/01/23 History tablet sennosides 8.6 mg-docusate sodium 1 tab-cap PO BID 10/01/23 10/01/23 History 50 mg tablet (Senna-S) trazodone 50 mg tablet 50 mg PO HS 10/01/23 10/01/23 History Allergies Allergy/AdvReac Type Severity Reaction Status Date / Time No Known Allergies Allergy Verified 10/01/23 09:39 Vital Signs Vital Signs - 24 hr 10/01/23 08:53 10/01/23 09:03 10/01/23 09:15 Temperature 97.9 F Pulse Rate 91 93 90 Respiratory Rate 20 17 25 H Blood Pressure 162/96 H 162/96 H 160/84 H Pulse Oximetry 100 99 100 Oxygen Delivery Room
[2023-10-01] MEDS: BISACODYL 10 MG SUPPOSITORY RECTAL (15:59)
--- NOTE | 2023-10-01 16:27 | ECG_ITS ---
Measurements Intervals [place] Rate: 95 P: 62 [place]: 170 QRS: -15 QRSD: 78 T: 111 QT: 329 QTc: 415 Interpretive Statements SINUS RHYTHM POSSIBLE LEFT ATRIAL ENLARGEMENT [-0.1mV P WAVE IN V1/V2] ST DEVIATION AND MODERATE T-WAVE ABNORMALITY, CONSIDER LATERAL ISCHEMIA [-0.1+ mV T WAVE IN I/aVL/V5/V6] ST DEVIATION AND MODERATE T-WAVE ABNORMALITY, CONSIDER INFERIOR ISCHEMIA [-0.1+ mV T WAVE IN II/aVF] COMPARED TO ECG 09/29/2023 11:53:52 NO SIGNIFICANT CHANGES Electronically Signed On 10-02-2023 10:58:37 CDT by Chari Guerrero M.D.
[2023-10-01 17:31] LABS: Troponin I < 0.012 ng/mL (0.000-0.034)
[2023-10-01] MEDS: METOPROLOL TARTRATE 12.5 MG TABLET PO (22:07)
[2023-10-01] MEDS: OLANZapine 5 MG TABLET PO (22:07)
[2023-10-01] MEDS: SENNA/DOCUSATE SODIUM TABLET 1 TAB PO (22:07)
[2023-10-01] MEDS: APIXABAN 5 MG TABLET PO (22:07)
[2023-10-01] MEDS: lamoTRIgine 100 MG TABLET PO (22:07)
[2023-10-02] VITALS (7 sets, daily range): BP systolic 111–140; BP diastolic 57–72; PULSE 73–83; RESP 14–20; TEMP 36.5–37.1; O2SAT 97–100; BMI 31.2
[2023-10-02 06:02] LABS: Basophils Percent Auto 0.5 % (0.2-1.2); Eosinophils Percent Auto 0.5 % (0-4.4); Hematocrit 41.9 % (37.0-47.0); Hemoglobin 12.4 g/dL (12.0-15.0); Immature Granulocyte Percent A 1.7 % (0-0.5); Lymphocytes Absolute Auto 2.07 K/mm3 (0.9-3.2); Lymphocytes Percent Auto 35.9 % (18.3-44.2); Mean Corpuscular HGB Conc 29.6 g/dl (32-36); Mean Corpuscular Hemoglobin 23.8 pg (26-34); Mean Corpuscular Volume 80.6 fl (80-100); Mean Platelet Volume 8.9 fl (7.4-10.4); Monocytes Absolute Auto 0.5 K/mm3 (0.1-0.6); Neutrophils Absolute Auto 3.1 K/mm3 (1.3-6.7); Neutrophils Percent Auto 53.4 % (45.5-73.1); Platelet Count Result 298 k/mm3 (150-375); Red Cell Distribution Width 22.1 % (11.5-14.5); White Blood Count 5.8 K/mm3 (4.5-10.0)
[2023-10-02] MEDS: SODIUM CHLORIDE 0.9% IV 1,000 ML 125 ML IV CONT ×2 (06:13→19:56)
[2023-10-02 06:36] LABS: Alanine Aminotransferase 16 U/L (6-35); Albumin Level 3.4 g/dL (3.5-5.1); Alkaline Phosphatase 58 U/L (38-126); Anion Gap 4 mmol/L (4-12); Aspartate Amino Transferase 17 U/L (14-36); Bilirubin,Total 0.6 mg/dL (0.2-1.3); Blood Urea Nitrogen 21 mg/dL (7-17); Calcium 8.5 mg/dL (8.4-10.2); Carbon Dioxide 23 mmol/L (22-30); Chloride 112 mmol/L (98-107); Estimated CRCL calculation 39 ml/min; Estimated Glomerular Filt Rate 46; Glucose 83 mg/dL (65-110); Potassium 4.4 mmol/L (3.4-5.0); Sodium 139 mmol/L (137-145)
[2023-10-02 06:38] LABS: Anisocytosis 2+; Hypochromasia 1+; Microcytosis 1+ (NORMAL); Platelet Estimate Adequate (Adequate); Schistocytes None Seen
[2023-10-02] MEDS: lamoTRIgine 100 MG TABLET PO ×2 (08:55→19:56)
[2023-10-02] MEDS: ROSUVASTATIN 10 MG TABLET PO (08:55)
[2023-10-02] MEDS: CHOLECALCIFEROL 1,000 UNITS TABLET 1000 UNITS PO (08:56)
[2023-10-02] MEDS: polyethylene glycoL 3350 17 GM POWD.PACK PO (08:56)
[2023-10-02] MEDS: CALCIUM CARBONATE (OSCAL) 500 MG TABLET PO (08:56)
[2023-10-02] MEDS: APIXABAN 5 MG TABLET PO ×2 (08:56→19:56)
[2023-10-02] MEDS: METOPROLOL TARTRATE 12.5 MG TABLET PO ×2 (08:56→19:55)
[2023-10-02] MEDS: PANTOPRAZOLE 40 MG TABLET PO (08:56)
[2023-10-02] MEDS: SENNA/DOCUSATE SODIUM TABLET 1 TAB PO ×2 (08:56→19:55)
[2023-10-02] MEDS: amLODIPine BESYLATE 5 MG TABLET PO (08:56)
--- NOTE | 2023-10-02 12:35 | PM.IMPN ---
Progress Note: A&P Assessment and Plan (1) Chronic kidney disease: Code(s): N18.9 - Chronic kidney disease, unspecified Status: Acute Assessment and Plan: acute on chronic, creatinine is 1.50, history creatinine of 1.70 - creat is 1.4 (2) CVA, old, aphasia: Code(s): I69.320 - Aphasia following cerebral infarction Status: Chronic Assessment and Plan: chronic, History of left hemispheric stroke with right-sided neurological deficit. continue home medication (3) Urinary tract infection: Code(s): N39.0 - Urinary tract infection, site not specified Status: Acute Assessment and Plan: as evidenced by UA with positive nitrates, urine WBC >51- 100, urine culture pending -continue ceftriaxone IV q 24 hours (4) Weakness: Code(s): R53.1 - Weakness Status: Acute Assessment and Plan: -initiate fall precautions, unknown last echocardiogram - PT eval and treat -check EKG - check echo in the a.m. (5) Fecal impaction: Code(s): K56.41 - Fecal impaction Status: Acute Assessment and Plan: -continue home medications, docusate sodium/ senna tablet 1 tab b.i.d., MiraLax 17 g p.o. daily - add bisacodyl suppository - await BM (6) Recurrent seizures: Code(s): G40.909 - Epilepsy, unspecified, not intractable, without status epilepticus Status: Acute Assessment and Plan: -initiate seizure precautions -Continue home medication (7) Pyelonephritis: Code(s): N12 - Tubulo-interstitial nephritis, not specified as acute or chronic Status: Acute Assessment and Plan: -continue IV NS at 125 ML/Hr -watch UO and BMP (8) Thrombosis: Code(s): I82.90 - Acute embolism and thrombosis of unspecified vein Status: Acute Assessment and Plan: as evidenced by CT scan Focal thrombus within the right common iliac vein. -Pt started on eliquis - 4 mm nonobstructing left renal stone. - consult urology with above pathology - continue to trend BMP Subjective Date/time seen: 10/02/23 12:35 Interval history: 63-year-old female with a PMHx: of CVA, dementia, COPD presented to the emergency room via EMS from long-term care facility who reported patient was not feeling well along with general weakness. abdominal CT,? subtle areas of decreased enhancement in both kidneys consider pyelonephritis, focal thrombosis within the right common iliac vein, fecal impaction /constipation along with a 4 mm nonobstructing left renal stone. 10/02/2023 Pt is not a good historian Urine culture is still pending continue with iv rocephin add laxatives for fecel loading and consult urology for kidney stone Review of Systems Review of Systems: ROS unobtainable: Yes unobtainable due to mental status Exam Narrative: chronically ill appearing lady poor historian Respiratory: Respirations are non- labored and lungs are clear to auscultation bilaterally. Cardiovascular: Regular rate and rhythm with S1-S2. Gastrointestinal: Abdomen is distended, bowel sounds are hypoactive Skin: Warm and dry. No rash or lesions on limited exam. Extremities: No cyanosis, clubbing, or edema. Radial and pedal pulses intact. Neurological: alert a/o x1-2. Cranial nerves 2-12 are grossly intact. No gross focal deficits Psychiatric: history of dementia mild cognitive impairment Objective Data Vital Signs Vital Signs: Vital Signs - 24 hr 10/01/23 13:10 10/01/23 13:55 10/01/23 13:40 Temperature 36.3 C L Pulse Rate 87 90 Respiratory Rate 20 16 Blood Pressure 140/80 128/65 Pulse Oximetry 99 97 Oxygen Delivery Room Air 10/01/23 20:00 10/01/23 22:07 10/01/23 23:44 Temperature 36.6 C 36.5 C Pulse Rate 90 90 68 Respiratory Rate 20 20 Blood Pressure 120/66 127/62 Pulse Oximetry 96 97 Oxygen Delivery 10/01/23 21:50 10/02/23 04:00 10/02/23 08:56 Temperature 36.5 C Pulse Rate 81 81 Respirat
--- NOTE | 2023-10-02 16:27 | ECHO_ITS ---
Patient Info Name: Jennifer Braxton Age: 63 years : 1960 Gender: Female Ht: 65 in Wt: 188 lbs BSA: 2.01 m2 HR: 76 bpm BP: 111 / 57 mmHg Heart Rhythm: Sinus Rhythm Technical Quality: Fair Exam Date: 10/02/2023 7:21 AM Exam Location: Echo Lab Patient Status: Inpatient Admit Date: 10/01/2023 Staff Ordering Physician: Eloina Chahal APRN Client Services Director: Kamala Araiza RDCS Attending Provider: Cande He MD Referring Physician: Fela COREAS; Exam Type: CA echo doppler w bubble study Study Info Indications - TIA Complete two-dimensional, color flow and Doppler transthoracic echocardiogram is performed with agitated saline. Contrast/Agitated Saline Contrast/Ag. Saline: Agitated Saline Amount: 14.00 ml IV Access Condition: patent with no signs of infiltration Summary 1. Left ventricular chamber dimension is normal. 2. Left ventricular systolic function is normal, estimated at >70%. 3. There is mildly increased left ventricular wall thickness. 4. The left ventricular diastolic function is grade I diastolic dysfunction. 5. Right ventricular systolic function is normal. 6. Intact interatrial septum visualized by color flow and agitated saline imaging. Negative bubble study. 7. There is mild aortic valve regurgitation. 8. There is mild tricuspid valve regurgitation. Left Ventricle Left ventricular chamber dimension is normal. Left ventricular systolic function is normal, estimated at >70%. There is mildly increased left ventricular wall thickness. The left ventricular diastolic function is grade I diastolic dysfunction. Right Ventricle Right ventricular chamber dimension is normal. Right ventricular systolic function is normal. Left Atria Left atrial chamber dimension is normal. Right Atria Right atrial chamber dimension is normal. Atrial Septum Intact interatrial septum visualized by color flow and agitated saline imaging. Negative bubble study. Aortic Valve The aortic valve is probable trileaflet. There is no aortic valve stenosis. There is mild aortic valve regurgitation. There is mild aortic valve calcification. Pulmonic Valve The pulmonic valve is not well visualized. Mitral Valve There is trace mitral valve regurgitation. The mitral valve annulus is mildly calcified. Tricuspid Valve There is mild tricuspid valve regurgitation. Pericardium/Pleural There is no pericardial effusion. Inferior Vena Cava Normal inferior vena cava with >50% collapse upon inspiration consistent with normal right atrial pressure, 3 mmHg. Aorta The aortic root size at the sinus of Valsalva is normal. Left Ventricular Outflow Tract Name Value Normal LVOT 2D LVOT Diameter 2.2 cm LVOT Doppler LVOT Peak Gradient 4 mmHg LVOT Mean Gradient 2 mmHg LVOT VTI 16 cm LVOT VTI/AV VTI Ratio 0.7 LVOT Stroke Volume 61 ml LVOT CO 4.7 l/min LVOT CI 2.3 l/min/m2 Pulmonic Valve
[2023-10-02] MEDS: HYDROcodone/acetaminophen (*CRX) 5-325 MG TABLET 1 TAB PO (19:55)
[2023-10-02] MEDS: OLANZapine 5 MG TABLET PO (19:55)
[2023-10-03] VITALS (9 sets, daily range): BP systolic 109–155; BP diastolic 61–81; PULSE 70–78; RESP 16–20; TEMP 36.5–36.8; O2SAT 98–100
[2023-10-03] MEDS: SODIUM CHLORIDE 0.9% IV 1,000 ML 125 ML IV CONT (03:58)
[2023-10-03] MEDS: METOPROLOL TARTRATE 12.5 MG TABLET PO ×2 (08:46→21:28)
[2023-10-03] MEDS: CHOLECALCIFEROL 1,000 UNITS TABLET 1000 UNITS PO (08:46)
[2023-10-03] MEDS: polyethylene glycoL 3350 17 GM POWD.PACK PO (08:46)
[2023-10-03] MEDS: ROSUVASTATIN 10 MG TABLET PO (08:46)
[2023-10-03] MEDS: SENNA/DOCUSATE SODIUM TABLET 1 TAB PO ×2 (08:46→21:28)
[2023-10-03] MEDS: PANTOPRAZOLE 40 MG TABLET PO (08:46)
[2023-10-03] MEDS: CALCIUM CARBONATE (OSCAL) 500 MG TABLET PO (08:46)
[2023-10-03] MEDS: amLODIPine BESYLATE 5 MG TABLET PO (08:46)
[2023-10-03] MEDS: lamoTRIgine 100 MG TABLET PO ×2 (08:46→21:28)
[2023-10-03] MEDS: APIXABAN 5 MG TABLET PO ×2 (08:47→21:28)
[2023-10-03] MEDS: ACETAMINOPHEN 325 MG TABLET 650 MG PO (08:59)
[2023-10-03 09:17] LABS: Basophils Percent Auto 0.5 % (0.2-1.2); Eosinophils Absolute Auto 0.1 K/mm3 (0-0.3); Eosinophils Percent Auto 0.9 % (0-4.4); Hematocrit 43.9 % (37.0-47.0); Hemoglobin 13.1 g/dL (12.0-15.0); Immature Granulocyte Absolute 0.08 K/mm3 (0.00-0.031); Immature Granulocyte Percent A 1.2 % (0-0.5); Lymphocytes Absolute Auto 2.07 K/mm3 (0.9-3.2); Lymphocytes Percent Auto 31.2 % (18.3-44.2); Mean Corpuscular HGB Conc 29.8 g/dl (32-36); Mean Corpuscular Hemoglobin 23.8 pg (26-34); Mean Corpuscular Volume 79.8 fl (80-100); Monocytes Absolute Auto 0.5 K/mm3 (0.1-0.6); Monocytes Percent Auto 7.8 % (2.6-8.5); Neutrophils Absolute Auto 3.9 K/mm3 (1.3-6.7); Neutrophils Percent Auto 58.4 % (45.5-73.1); Platelet Count Result 337 k/mm3 (150-375); Red Cell Distribution Width 21.7 % (11.5-14.5); White Blood Count 6.6 K/mm3 (4.5-10.0)
--- NOTE | 2023-10-03 09:30 | WPDURCON ---
Assessment and Plan Assessment and plan (1) Pyelonephritis: Code(s): N12 - Tubulo-interstitial nephritis, not specified as acute or chronic Status: Acute Assessment and Plan: Findings on CT consistent with pyelonephritis Continue empiric antibiotics while awaiting final blood cultures Supportive care Remains afebrile without leukocytosis and stable renal function (2) Urinary tract infection: Code(s): N39.0 - Urinary tract infection, site not specified Status: Acute Assessment and Plan: Preliminary urine culture with growth of E coli Await susceptibility report and tailor antibiotics accordingly Plan No need for urologic intervention or follow up. Will sign off, please call with any questions. Urology Consult Note HPI Date Seen: 10/03/23 Requesting Physician: Cande He MD Primary Care Provider: Kemar Jain MD Consult Narrative Narrative: Jennifer Braxton is a 63 year old female with history of aphasia secondary to CVA, dementia, chronic kidney disease who is being seen in consultation for pyelonephritis. She is a somewhat poor historian and not able to contribute greatly to history. She presented to the ER on 10/01/2023 are evaluation of weakness. CT scan completed on arrival demonstrated hypoenhancement in both kidneys (left greater than right) concerning for pyelonephritis as well as a 4 mm nonobstructing left renal stone, bladder unremarkable. Her urinalysis was abnormal with leukocytes, nitrites, 51-100 WBC. WBC was within normal limits. Creatinine slightly elevated at 1.5. Her vital signs were stable and she was afebrile. She was started on empiric antibiotics and a preliminary urine culture demonstrates growth of E coli. She complains of diffuse abdominal and flank pain. Denies back pain. She is incontinent of urine at baseline and wears depends. She does endorse dysuria but denies hematuria. No nausea, vomiting, fever, or chills. Her white blood cell count has remained stable and renal function is improved at 1.2. She reports no prior urologic issues and is not established with a urologist. She denies recurrent UTIs. Review of EMR demonstrates one prior E coli UTI in 03/2023, no other UTIs Review of Systems Review of Systems: All systems reviewed & are unremarkable except as noted in HPI and below PMFSH Past Medical History Medical History (Updated 10/01/23 @ 18:55 by Aleksandar Zelaya MD) Cerebrovascular accident 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 Chronic kidney disease Dementia Hypertension Seizures Toxoplasmosis Surgical History Surgical History No significant past surgical history Family History Family History Other Family history unknown Social History Social History Social History: Surrogate medical decision maker: Wicho Braxton, spouse. Code status: Full code. Smoking status: Former smoker Alcohol intake: unknown Substance use: unknown Spiritual care concerns: No Meds Home Medications and Allergies Home Medications Medication Instructions Recorded Confirmed Type amlodipine 5 mg tablet 5 mg PO DAILY 04/04/23 10/01/23 History cholecalciferol (vitamin D3) 25 25 mcg PO DAILY 04/04/23 10/01/23 History mcg (1,000 unit) capsule (Vitamin D3) enoxaparin 40 mg/0.4 mL 40 mg subcut DAILY 04/04/23 10/01/23 History subcutaneous syringe ferrous sulfate 325 mg (65 mg 325 mg PO QMWFSU 04/04/23 10/01/23 History iron) tablet lamotrigine 100 mg tablet 100 mg PO BID 04/04/23 10/01/23 History metoprolol tartrate 25 mg tablet 12.5 mg PO BID 04/04/23 10/01/23 History olanzapine 5 mg tablet 2.5 mg PO BID 04/04/23 10/01/23 History olanzapine 5 mg tablet 5 mg PO QHS 04/04/23 10/01/23 History pantoprazole 40 mg tablet,delayed 40 mg PO DAILY 04/04/23
[2023-10-03 09:40] LABS: Alanine Aminotransferase 16 U/L (6-35); Albumin Level 3.8 g/dL (3.5-5.1); Alkaline Phosphatase 65 U/L (38-126); Anion Gap 5 mmol/L (4-12); Aspartate Amino Transferase 22 U/L (14-36); Bilirubin,Total 0.8 mg/dL (0.2-1.3); Blood Urea Nitrogen 15 mg/dL (7-17); Carbon Dioxide 25 mmol/L (22-30); Chloride 108 mmol/L (98-107); Estimated CRCL calculation 45 ml/min; Estimated Glomerular Filt Rate 55; Glucose 106 mg/dL (65-110); Potassium 4.1 mmol/L (3.4-5.0); Sodium 138 mmol/L (137-145)
[2023-10-03 10:18] LABS: Platelet Estimate Adequate (Adequate)
[2023-10-03 10:19] LABS: Anisocytosis 2+; Hypochromasia 1+; Microcytosis 1+ (NORMAL); Ovalocytes 1+; Schistocytes None Seen
--- NOTE | 2023-10-03 14:25 | PM.IMPN ---
Progress Note: A&P Assessment and Plan (1) Pyelonephritis: Code(s): N12 - Tubulo-interstitial nephritis, not specified as acute or chronic Status: Acute (2) Urinary tract infection: Code(s): N39.0 - Urinary tract infection, site not specified Status: Acute Plan 63-year-old female with a PMHx: of CVA, dementia, COPD presented to the emergency room via EMS from [facility] who reported patient was not feeling well along with general weakness. abdominal CT,? subtle areas of decreased enhancement in both kidneys consider pyelonephritis, focal thrombosis within the right common iliac vein, fecal impaction /constipation along with a 4 mm nonobstructing left renal stone. Patient started on IV Rocephin. Laxative for constipation. Urology consulted for kidney stones. Echo EF more than 70% grade 1 diastolic dysfunction. Negative bubble study. Follow urine culture. WBC normal mild ELFEGO creatinine continues to improve has baseline CKD stage 3. Follow-up venous duplex was negative for any DVT. Chest x-ray 10/03/2023 with mild pulmonary edema and cardiomegaly. 10/02/2023 Pt is not a good historian Urine culture with E coli ESBL switch antibiotics ertapenem DVT prophylaxis on apixaban Subjective Date/time seen: 10/03/23 14:25 Interval history: 63-year-old female with a PMHx: of CVA, dementia, COPD presented to the emergency room via EMS from [facility] who reported patient was not feeling well along with general weakness. abdominal CT,? subtle areas of decreased enhancement in both kidneys consider pyelonephritis, focal thrombosis within the right common iliac vein, fecal impaction /constipation along with a 4 mm nonobstructing left renal stone. Patient started on IV Rocephin. Laxative for constipation. Urology consulted for kidney stones. Echo EF more than 70% grade 1 diastolic dysfunction. Negative bubble study. Follow urine culture. WBC normal mild ELFEGO creatinine continues to improve has baseline CKD stage 3. Follow-up venous duplex was negative for any DVT. Chest x-ray 10/03/2023 with mild pulmonary edema and cardiomegaly. 10/02/2023 Pt is not a good historian Urine culture with E coli ESBL switch antibiotics ertapenem DVT prophylaxis on apixaban Review of Systems Review of Systems: All systems reviewed & are unremarkable except as noted in HPI and below Exam Narrative: General: Awake, alert, comfortable, no acute distress HEENT: Normocephalic, atraumatic, sclerae anicteric Respiratory: Normal respiratory effort, no accessory muscle use Abdomen: Nondistended, soft, nontender Skin: Normal coloration, warm and dry Neurologic: No focal neuro deficits noted, slow speech pattern Psychiatric: Emotional, judgment and insight fair, slightly forgetful Objective Data Vital Signs Vital Signs: Vital Signs - 24 hr 10/02/23 15:16 10/02/23 15:16 10/02/23 19:55 Temperature Pulse Rate 76 Respiratory Rate Blood Pressure 136/72 140/70 Pulse Oximetry Oxygen Delivery 10/02/23 21:07 10/02/23 20:00 10/03/23 00:00 Temperature 98.1 F 97.7 F Pulse Rate 83 74 Respiratory Rate 20 20 Blood Pressure 137/60 123/71 Pulse Oximetry 97 100 98 Oxygen Delivery Room Air 10/02/23 20:00 10/03/23 04:00 10/03/23 08:46 Temperature 97.7 F Pulse Rate 77 77 Respiratory Rate 20 Blood Pressure 136/69 Pulse Oximetry 100 Oxygen Delivery Room Air 10/03/23 09:00 10/03/23 11:31 10/03/23 11:32 Temperature Pulse Rate 72 70 Respiratory Rate Blood Pressure 109/61 115/64 Pulse Oximetry Oxygen Delivery Room Air Intake/Output Intake/Output: Intake & Output 09/30/23 10/01/23 10/02/23 10/03/23 23:59 23:59 23:59 23:59 Intake Total 2100 2565 2517 Output Total 30 Balance 0 2565 2517 Meds/Results Medications: Active Medications Generic Name Dose Route Start Last Admin Trade Name Freq PRN Reason Stop Dose Admin Acetaminophen
[2023-10-03] MEDS: ERTAPENEM 1 GM/NS 50 ML 1 GM/50 ML BAG IVPB (15:17)
[2023-10-03] MEDS: OLANZapine 5 MG TABLET PO (21:28)
[2023-10-04] VITALS (7 sets, daily range): BP systolic 128–157; BP diastolic 70–84; PULSE 74–82; RESP 16–18; TEMP 36.4–36.7; O2SAT 96–99
[2023-10-04 05:00] LABS: Basophils Absolute Auto 0.1 K/mm3 (0.0-0.1); Basophils Percent Auto 0.8 % (0.2-1.2); Eosinophils Absolute Auto 0.1 K/mm3 (0-0.3); Hematocrit 46.6 % (37.0-47.0); Hemoglobin 13.9 g/dL (12.0-15.0); Immature Granulocyte Percent A 1.6 % (0-0.5); Lymphocytes Absolute Auto 2.18 K/mm3 (0.9-3.2); Lymphocytes Percent Auto 34.7 % (18.3-44.2); Mean Corpuscular HGB Conc 29.8 g/dl (32-36); Mean Corpuscular Hemoglobin 24.1 pg (26-34); Mean Corpuscular Volume 80.8 fl (80-100); Mean Platelet Volume 9.1 fl (7.4-10.4); Monocytes Absolute Auto 0.4 K/mm3 (0.1-0.6); Monocytes Percent Auto 6.8 % (2.6-8.5); Neutrophils Absolute Auto 3.5 K/mm3 (1.3-6.7); Neutrophils Percent Auto 55.1 % (45.5-73.1); Platelet Count Result 318 k/mm3 (150-375); Red Blood Count 5.77 M/mm3 (4.2-5.4); Red Cell Distribution Width 22.1 % (11.5-14.5); White Blood Count 6.3 K/mm3 (4.5-10.0)
[2023-10-04 05:11] LABS: Alanine Aminotransferase 17 U/L (6-35); Albumin Level 4.2 g/dL (3.5-5.1); Alkaline Phosphatase 65 U/L (38-126); Anion Gap 7 mmol/L (4-12); Aspartate Amino Transferase 20 U/L (14-36); Bilirubin,Total 0.7 mg/dL (0.2-1.3); Blood Urea Nitrogen 18 mg/dL (7-17); Calcium 9.7 mg/dL (8.4-10.2); Carbon Dioxide 24 mmol/L (22-30); Chloride 107 mmol/L (98-107); Estimated CRCL calculation 42 ml/min; Estimated Glomerular Filt Rate 50; Glucose 93 mg/dL (65-110); Magnesium 2.1 mg/dL (1.6-2.3); Potassium 4.2 mmol/L (3.4-5.0); Sodium 138 mmol/L (137-145)
[2023-10-04 05:28] LABS: Anisocytosis 1+; Ovalocytes 1+; Platelet Estimate Adequate (Adequate)
[2023-10-04 05:29] LABS: Schistocytes Rare
[2023-10-04] MEDS: ROSUVASTATIN 10 MG TABLET PO (09:22)
[2023-10-04] MEDS: CALCIUM CARBONATE (OSCAL) 500 MG TABLET PO (09:22)
[2023-10-04] MEDS: PANTOPRAZOLE 40 MG TABLET PO (09:22)
[2023-10-04] MEDS: METOPROLOL TARTRATE 12.5 MG TABLET PO ×2 (09:22→20:27)
[2023-10-04] MEDS: lamoTRIgine 100 MG TABLET PO ×2 (09:23→20:27)
[2023-10-04] MEDS: amLODIPine BESYLATE 5 MG TABLET PO (09:23)
[2023-10-04] MEDS: APIXABAN 5 MG TABLET PO ×2 (09:23→20:27)
[2023-10-04] MEDS: SENNA/DOCUSATE SODIUM TABLET 1 TAB PO ×2 (09:23→20:27)
[2023-10-04] MEDS: polyethylene glycoL 3350 17 GM POWD.PACK PO (09:24)
[2023-10-04] MEDS: CHOLECALCIFEROL 1,000 UNITS TABLET 1000 UNITS PO (09:26)
[2023-10-04] MEDS: ERTAPENEM 1 GM/NS 50 ML 1 GM/50 ML BAG IVPB (11:36)
--- NOTE | 2023-10-04 15:26 | PM.IMPN ---
Progress Note: A&P Assessment and Plan (1) Pyelonephritis: Code(s): N12 - Tubulo-interstitial nephritis, not specified as acute or chronic Status: Acute (2) Urinary tract infection: Code(s): N39.0 - Urinary tract infection, site not specified Status: Acute Plan 63-year-old female with a PMHx: of CVA, dementia, COPD presented to the emergency room via EMS from long-term care facility who reported patient was not feeling well along with general weakness. abdominal CT,? subtle areas of decreased enhancement in both kidneys consider pyelonephritis, focal thrombosis within the right common iliac vein, fecal impaction /constipation along with a 4 mm nonobstructing left renal stone. Patient started on IV Rocephin. Laxative for constipation. Urology consulted for kidney stones. Echo EF more than 70% grade 1 diastolic dysfunction. Negative bubble study. Follow urine culture. WBC normal mild ELFEGO creatinine continues to improve has baseline CKD stage 3. Follow-up venous duplex was negative for any DVT. Chest x-ray 10/03/2023 with mild pulmonary edema and cardiomegaly. 10/02/2023 Pt is not a good historian Urine culture with E coli ESBL switch antibiotics ertapenem DVT prophylaxis on apixaban Subjective Date/time seen: 10/04/23 15:26 Interval history: No overnight events. Remains afebrile. Fluctuating mood Review of Systems Review of Systems: All systems reviewed & are unremarkable except as noted in HPI and below Exam Narrative: General: Awake, alert, comfortable, no acute distress HEENT: Normocephalic, atraumatic, sclerae anicteric Respiratory: Normal respiratory effort, no accessory muscle use Abdomen: Nondistended, soft, nontender Skin: Normal coloration, warm and dry Neurologic: No focal neuro deficits noted, slow speech pattern Psychiatric: Emotional, judgment and insight fair, slightly forgetful Objective Data Vital Signs Vital Signs: Vital Signs - 24 hr 10/03/23 16:19 10/03/23 20:00 10/03/23 20:00 Temperature 97.7 F 98.2 F Pulse Rate 78 76 Respiratory Rate 16 20 Blood Pressure 144/67 H 155/81 H Pulse Oximetry 99 99 Oxygen Delivery Room Air 10/03/23 21:28 10/03/23 23:30 10/04/23 05:51 Temperature 98.1 F Pulse Rate 76 74 Respiratory Rate 18 Blood Pressure 157/84 H Pulse Oximetry 99 99 Oxygen Delivery Room Air 10/04/23 08:08 10/04/23 08:09 10/04/23 09:22 Temperature Pulse Rate 76 79 80 Respiratory Rate Blood Pressure 156/78 H 153/78 H Pulse Oximetry Oxygen Delivery 10/04/23 14:26 Temperature 97.5 F L Pulse Rate 75 Respiratory Rate 16 Blood Pressure 134/70 Pulse Oximetry 98 Oxygen Delivery Intake/Output Intake/Output: Intake & Output 10/01/23 10/02/23 10/03/23 10/04/23 23:59 23:59 23:59 23:59 Intake Total 2100 2565 2617 200 Output Total 30 1100 550 Balance 2070 2565 1517 -350 Meds/Results Medications: Active Medications Generic Name Dose Route Start Last Admin Trade Name Freq PRN Reason Stop Dose Admin Acetaminophen 650 mg 10/01/23 11:54 10/03/23 08:59 Acetaminophen 325 Mg Tablet PO 650 mg Q4H PRN Administration Mild Pain (1-3) or Fever Hydrocodone Bitart/Acetaminophen 1 tab 10/01/23 11:54 10/02/23 19:55 Hydrocodone/Acetaminophen (*Crx) 5-325 Mg Tablet PO 1 tab Q4H PRN Administration Pain Rated 4-6 Amlodipine Besylate 5 mg 10/02/23 09:00 10/04/23 09:23 Amlodipine Besylate 5 Mg Tablet PO 5 mg DAILY BROOKS Administration Apixaban 5 mg 10/01/23 21:00 10/04/23 09:23 Apixaban 5 Mg Tablet PO 5 mg Q12HR BROOKS Administration Calcium Carbonate 500 mg 10/02/23 09:00 10/04/23 09:22 Calcium Carbonate (Oscal) 500 Mg Tablet PO 500 mg DAILY BROOKS Administration Ertapenem 1 gm in 50 mls @ 100 mls/hr 10/03/23 15:00 10/04/23 11:36 Invanz 1 Gm/Ns 50 Ml IVPB 100 mls/hr DAILY@1200 BROOKS Administration Lamotrigine 100 mg 10/01/23 21:00 10/04/23 0
[2023-10-04] MEDS: OLANZapine 5 MG TABLET PO (20:27)
[2023-10-05 05:27] LABS: Basophils Percent Auto 0.6 % (0.2-1.2); Eosinophils Absolute Auto 0.1 K/mm3 (0-0.3); Eosinophils Percent Auto 0.9 % (0-4.4); Hematocrit 45.3 % (37.0-47.0); Hemoglobin 13.6 g/dL (12.0-15.0); Immature Granulocyte Percent A 1.5 % (0-0.5); Lymphocytes Absolute Auto 2.01 K/mm3 (0.9-3.2); Lymphocytes Percent Auto 30.1 % (18.3-44.2); Mean Corpuscular Volume 79.9 fl (80-100); Mean Platelet Volume 9.1 fl (7.4-10.4); Monocytes Absolute Auto 0.5 K/mm3 (0.1-0.6); Monocytes Percent Auto 7.5 % (2.6-8.5); Neutrophils Percent Auto 59.4 % (45.5-73.1); Platelet Count Result 308 k/mm3 (150-375); Red Blood Count 5.67 M/mm3 (4.2-5.4); Red Cell Distribution Width 22.4 % (11.5-14.5); White Blood Count 6.7 K/mm3 (4.5-10.0)
[2023-10-05 05:41] LABS: Alanine Aminotransferase 17 U/L (6-35); Albumin Level 4.1 g/dL (3.5-5.1); Alkaline Phosphatase 65 U/L (38-126); Anion Gap 6 mmol/L (4-12); Aspartate Amino Transferase 23 U/L (14-36); Bilirubin,Total 0.6 mg/dL (0.2-1.3); Blood Urea Nitrogen 24 mg/dL (7-17); Calcium 9.7 mg/dL (8.4-10.2); Carbon Dioxide 26 mmol/L (22-30); Chloride 106 mmol/L (98-107); Estimated CRCL calculation 39 ml/min; Estimated Glomerular Filt Rate 46; Glucose 99 mg/dL (65-110); Potassium 4.5 mmol/L (3.4-5.0); Sodium 138 mmol/L (137-145)
[2023-10-05 05:50] LABS: Platelet Clumps Present; Platelet Estimate Adequate (Adequate)
[2023-10-05 05:52] LABS: Anisocytosis 1+; Ovalocytes 1+; Schistocytes None Seen
[2023-10-05 06:00] VITALS: BP 132/68; RESP 16; TEMP 36.5; O2SAT 96
[2023-10-05 09:12] VITALS: PULSE 91
[2023-10-05] MEDS: lamoTRIgine 100 MG TABLET PO ×2 (09:12→20:23)
[2023-10-05] MEDS: CALCIUM CARBONATE (OSCAL) 500 MG TABLET PO (09:12)
[2023-10-05] MEDS: METOPROLOL TARTRATE 12.5 MG TABLET PO ×2 (09:12→20:22)
[2023-10-05] MEDS: APIXABAN 5 MG TABLET PO ×2 (09:12→20:23)
[2023-10-05] MEDS: PANTOPRAZOLE 40 MG TABLET PO (09:12)
[2023-10-05] MEDS: polyethylene glycoL 3350 17 GM POWD.PACK PO (09:13)
[2023-10-05] MEDS: amLODIPine BESYLATE 5 MG TABLET PO (09:13)
[2023-10-05] MEDS: ROSUVASTATIN 10 MG TABLET PO (09:13)
[2023-10-05] MEDS: CHOLECALCIFEROL 1,000 UNITS TABLET 1000 UNITS PO (09:13)
[2023-10-05] MEDS: SENNA/DOCUSATE SODIUM TABLET 1 TAB PO ×2 (09:13→20:23)
[2023-10-05] MEDS: ERTAPENEM 1 GM/NS 50 ML 1 GM/50 ML BAG IVPB (12:24)
[2023-10-05 13:59] VITALS: BP 125/67; PULSE 72; RESP 18; TEMP 36.4; O2SAT 94
--- NOTE | 2023-10-05 14:43 | PM.IMPN ---
Progress Note: A&P Assessment and Plan (1) Pyelonephritis: Code(s): N12 - Tubulo-interstitial nephritis, not specified as acute or chronic Status: Acute (2) Urinary tract infection: Code(s): N39.0 - Urinary tract infection, site not specified Status: Acute Plan 63-year-old female with a PMHx: of CVA, dementia, COPD presented to the emergency room via EMS from long-term care facility who reported patient was not feeling well along with general weakness. abdominal CT,? subtle areas of decreased enhancement in both kidneys consider pyelonephritis, focal thrombosis within the right common iliac vein, fecal impaction /constipation along with a 4 mm nonobstructing left renal stone. Patient started on IV Rocephin. Laxative for constipation. Urology consulted for kidney stones. Echo EF more than 70% grade 1 diastolic dysfunction. Negative bubble study. Follow urine culture. WBC normal mild ELFEGO creatinine continues to improve has baseline CKD stage 3. Follow-up venous duplex was negative for any DVT. Chest x-ray 10/03/2023 with mild pulmonary edema and cardiomegaly. 10/02/2023 Pt is not a good historian Urine culture with E coli ESBL switch antibiotics ertapenem day 3 DVT prophylaxis on apixaban Subjective Date/time seen: 10/05/23 14:43 Interval history: No overnight events. Discussed with nursing staff. Denies any new complaints. Review of Systems Review of Systems: All systems reviewed & are unremarkable except as noted in HPI and below Exam Narrative: General: Awake, alert, comfortable, no acute distress HEENT: Normocephalic, atraumatic, sclerae anicteric Respiratory: Normal respiratory effort, no accessory muscle use Abdomen: Nondistended, soft, nontender Skin: Normal coloration, warm and dry Neurologic: No focal neuro deficits noted, slow speech pattern Psychiatric: Emotional, judgment and insight fair, slightly forgetful Objective Data Vital Signs Vital Signs: Vital Signs - 24 hr 10/04/23 20:27 10/04/23 22:00 10/04/23 22:00 Temperature 97.9 F Pulse Rate 82 82 Respiratory Rate 18 Blood Pressure 128/72 Pulse Oximetry 96 Oxygen Delivery Room Air 10/05/23 06:00 10/05/23 09:12 10/05/23 13:59 Temperature 97.7 F 97.5 F L Pulse Rate 91 72 Respiratory Rate 16 18 Blood Pressure 132/68 125/67 Pulse Oximetry 96 94 Oxygen Delivery Intake/Output Intake/Output: Intake & Output 10/02/23 10/03/23 10/04/23 10/05/23 23:59 23:59 23:59 23:59 Intake Total 2565 2617 740 370 Output Total 1100 1250 Balance 2565 1517 -510 370 Meds/Results Medications: Active Medications Generic Name Dose Route Start Last Admin Trade Name Freq PRN Reason Stop Dose Admin Acetaminophen 650 mg 10/01/23 11:54 10/03/23 08:59 Acetaminophen 325 Mg Tablet PO 650 mg Q4H PRN Administration Mild Pain (1-3) or Fever Hydrocodone Bitart/Acetaminophen 1 tab 10/01/23 11:54 10/02/23 19:55 Hydrocodone/Acetaminophen (*Crx) 5-325 Mg Tablet PO 1 tab Q4H PRN Administration Pain Rated 4-6 Amlodipine Besylate 5 mg 10/02/23 09:00 10/05/23 09:13 Amlodipine Besylate 5 Mg Tablet PO 5 mg DAILY BROOKS Administration Apixaban 5 mg 10/01/23 21:00 10/05/23 09:12 Apixaban 5 Mg Tablet PO 5 mg Q12HR BROOKS Administration Calcium Carbonate 500 mg 10/02/23 09:00 10/05/23 09:12 Calcium Carbonate (Oscal) 500 Mg Tablet PO 500 mg DAILY BROOKS Administration Ertapenem 1 gm in 50 mls @ 100 mls/hr 10/03/23 15:00 10/05/23 12:54 Invanz 1 Gm/Ns 50 Ml IVPB Infused DAILY@1200 BROOKS Infusion Lamotrigine 100 mg 10/01/23 21:00 10/05/23 09:12 Lamotrigine 100 Mg Tablet PO 100 mg Q12HR BROOKS Administration Metoprolol Tartrate 12.5 mg 10/01/23 21:00 10/05/23 09:12 Metoprolol Tartrate 12.5 Mg Tablet PO 12.5 mg Q12HR BROOKS Administration Olanzapine 5 mg 10/01/23 21:00 10/04/23 20:27 Olanzapine 5 Mg Tablet PO 5 mg QHS BROOKS
[2023-10-05 20:22] VITALS: PULSE 80
[2023-10-05] MEDS: OLANZapine 5 MG TABLET PO (20:22)
[2023-10-05 20:49] VITALS: BP 141/77; PULSE 75; RESP 17; TEMP 36.1; O2SAT 97
[2023-10-06 05:38] VITALS: BP 128/53; PULSE 68; RESP 17; TEMP 36.6; O2SAT 100
[2023-10-06 05:51] LABS: Basophils Percent Auto 0.6 % (0.2-1.2); Eosinophils Absolute Auto 0.1 K/mm3 (0-0.3); Eosinophils Percent Auto 1.2 % (0-4.4); Hematocrit 45.9 % (37.0-47.0); Hemoglobin 13.8 g/dL (12.0-15.0); Immature Granulocyte Percent A 1.5 % (0-0.5); Lymphocytes Absolute Auto 2.25 K/mm3 (0.9-3.2); Lymphocytes Percent Auto 34.7 % (18.3-44.2); Mean Corpuscular HGB Conc 30.1 g/dl (32-36); Mean Corpuscular Hemoglobin 24.3 pg (26-34); Mean Platelet Volume 9.1 fl (7.4-10.4); Monocytes Absolute Auto 0.8 K/mm3 (0.1-0.6); Neutrophils Absolute Auto 3.2 K/mm3 (1.3-6.7); Platelet Count Result 281 k/mm3 (150-375); Red Blood Count 5.67 M/mm3 (4.2-5.4); Red Cell Distribution Width 22.5 % (11.5-14.5); White Blood Count 6.5 K/mm3 (4.5-10.0)
[2023-10-06 06:06] LABS: Alanine Aminotransferase 18 U/L (6-35); Albumin Level 3.9 g/dL (3.5-5.1); Alkaline Phosphatase 53 U/L (38-126); Anion Gap 7 mmol/L (4-12); Aspartate Amino Transferase 22 U/L (14-36); Bilirubin,Total 0.6 mg/dL (0.2-1.3); Blood Urea Nitrogen 24 mg/dL (7-17); Calcium 9.3 mg/dL (8.4-10.2); Carbon Dioxide 21 mmol/L (22-30); Chloride 107 mmol/L (98-107); Estimated CRCL calculation 39 ml/min; Estimated Glomerular Filt Rate 46; Glucose 106 mg/dL (65-110); Magnesium 2.4 mg/dL (1.6-2.3); Potassium 4.4 mmol/L (3.4-5.0); Sodium 135 mmol/L (137-145)
[2023-10-06 07:52] LABS: Anisocytosis 1+; Microcytosis 1+ (NORMAL); Ovalocytes 1+; Platelet Estimate Adequate (Adequate); Schistocytes None Seen
--- NOTE | 2023-10-06 08:09 | PC.NURSE ---
S[employer]master spoke with Margot Salguero's guardian who is requesting a psych evaluation due to her non compliance this admission.
[2023-10-06] MEDS: CHOLECALCIFEROL 1,000 UNITS TABLET 1000 UNITS PO (09:35)
[2023-10-06] MEDS: CALCIUM CARBONATE (OSCAL) 500 MG TABLET PO (09:35)
[2023-10-06] MEDS: ROSUVASTATIN 10 MG TABLET PO (09:35)
[2023-10-06] MEDS: amLODIPine BESYLATE 5 MG TABLET PO (09:35)
[2023-10-06] MEDS: SENNA/DOCUSATE SODIUM TABLET 1 TAB PO ×2 (09:35→20:21)
[2023-10-06 09:36] VITALS: PULSE 55
[2023-10-06] MEDS: METOPROLOL TARTRATE 12.5 MG TABLET PO ×2 (09:36→20:22)
[2023-10-06] MEDS: PANTOPRAZOLE 40 MG TABLET PO (09:37)
[2023-10-06] MEDS: APIXABAN 5 MG TABLET PO ×2 (09:37→20:21)
[2023-10-06] MEDS: lamoTRIgine 100 MG TABLET PO ×2 (09:38→20:23)
[2023-10-06] MEDS: polyethylene glycoL 3350 17 GM POWD.PACK PO (09:38)
[2023-10-06] MEDS: ERTAPENEM 1 GM/NS 50 ML 1 GM/50 ML BAG IVPB (12:47)
[2023-10-06 14:00] VITALS: BP 112/52; PULSE 64; RESP 16; TEMP 37.1; O2SAT 98
--- NOTE | 2023-10-06 15:11 | PM.IMPN ---
Progress Note: A&P Assessment and Plan (1) Pyelonephritis: Code(s): N12 - Tubulo-interstitial nephritis, not specified as acute or chronic Status: Acute (2) Urinary tract infection: Code(s): N39.0 - Urinary tract infection, site not specified Status: Acute Plan 63-year-old female with a PMHx: of CVA, dementia, COPD presented to the emergency room via EMS from long-term care facility who reported patient was not feeling well along with general weakness. abdominal CT,? subtle areas of decreased enhancement in both kidneys consider pyelonephritis, focal thrombosis within the right common iliac vein, fecal impaction /constipation along with a 4 mm nonobstructing left renal stone. Patient started on IV Rocephin. Laxative for constipation. Urology consulted for kidney stones. Echo EF more than 70% grade 1 diastolic dysfunction. Negative bubble study. Follow urine culture. WBC normal mild ELFEGO creatinine continues to improve has baseline CKD stage 3. Follow-up venous duplex was negative for any DVT. Chest x-ray 10/03/2023 with mild pulmonary edema and cardiomegaly. 10/02/2023 Pt is not a good historian Urine culture with E coli ESBL switch antibiotics ertapenem day 10/04 no oral option DVT prophylaxis on apixaban Subjective Date/time seen: 10/06/23 15:11 Interval history: No new complaints no overnight events tolerating antibiotic Review of Systems Review of Systems: All systems reviewed & are unremarkable except as noted in HPI and below Exam Narrative: General: Awake, alert, comfortable, no acute distress HEENT: Normocephalic, atraumatic, sclerae anicteric Respiratory: Normal respiratory effort, no accessory muscle use Abdomen: Nondistended, soft, nontender Skin: Normal coloration, warm and dry Neurologic: No focal neuro deficits noted, slow speech pattern Psychiatric: Emotional, judgment and insight fair, slightly forgetful Objective Data Vital Signs Vital Signs: Vital Signs - 24 hr 10/05/23 20:22 10/05/23 20:49 10/05/23 20:00 Temperature 97.0 F L Pulse Rate 80 75 Respiratory Rate 17 Blood Pressure 141/77 H Pulse Oximetry 97 Oxygen Delivery Room Air 10/06/23 05:38 10/06/23 09:36 Temperature 97.8 F Pulse Rate 68 55 L Respiratory Rate 17 Blood Pressure 128/53 L Pulse Oximetry 100 Oxygen Delivery Intake/Output Intake/Output: Intake & Output 10/03/23 10/04/23 10/05/23 10/06/23 23:59 23:59 23:59 23:59 Intake Total 2617 740 570 240 Output Total 1100 1250 400 350 Balance 1517 510 170 -110 Meds/Results Medications: Active Medications Generic Name Dose Route Start Last Admin Trade Name Freq PRN Reason Stop Dose Admin Acetaminophen 650 mg 10/01/23 11:54 10/03/23 08:59 Acetaminophen 325 Mg Tablet PO 650 mg Q4H PRN Administration Mild Pain (1-3) or Fever Hydrocodone Bitart/Acetaminophen 1 tab 10/01/23 11:54 10/02/23 19:55 Hydrocodone/Acetaminophen (*Crx) 5-325 Mg Tablet PO 1 tab Q4H PRN Administration Pain Rated 4-6 Amlodipine Besylate 5 mg 10/02/23 09:00 10/06/23 09:35 Amlodipine Besylate 5 Mg Tablet PO 5 mg DAILY BROOKS Administration Apixaban 5 mg 10/01/23 21:00 10/06/23 09:37 Apixaban 5 Mg Tablet PO 5 mg Q12HR BROOKS Administration Calcium Carbonate 500 mg 10/02/23 09:00 10/06/23 09:35 Calcium Carbonate (Oscal) 500 Mg Tablet PO 500 mg DAILY BROOKS Administration Ertapenem 1 gm in 50 mls @ 100 mls/hr 10/03/23 15:00 10/06/23 12:47 Invanz 1 Gm/Ns 50 Ml IVPB 10/09/23 12:29 100 mls/hr DAILY@1200 BROOKS Administration Lamotrigine 100 mg 10/01/23 21:00 10/06/23 09:38 Lamotrigine 100 Mg Tablet PO 100 mg Q12HR BROOKS Administration Metoprolol Tartrate 12.5 mg 10/01/23 21:00 10/06/23 09:36 Metoprolol Tartrate 12.5 Mg Tablet PO 12.5 mg Q12HR BROOKS Administration Olanzapine 5 mg 10/01/23 21:00 10/05/23 20:22 Olanzapine 5 Mg Tablet PO 5 mg QHS BROOKS Admi
[2023-10-06 20:20] VITALS: PULSE 78; RESP 18; O2SAT 97
[2023-10-06 20:22] VITALS: PULSE 68
[2023-10-06] MEDS: OLANZapine 5 MG TABLET PO (20:22)
[2023-10-06 22:00] VITALS: BP 134/72; PULSE 78; RESP 18; TEMP 36.8; O2SAT 96
[2023-10-07 06:00] VITALS: BP 139/93; PULSE 72; RESP 18; TEMP 36.8; O2SAT 98
[2023-10-07 06:13] LABS: Basophils Percent Auto 0.5 % (0.2-1.2); Eosinophils Absolute Auto 0.1 K/mm3 (0-0.3); Eosinophils Percent Auto 1.2 % (0-4.4); Hematocrit 43.9 % (37.0-47.0); Hemoglobin 12.6 g/dL (12.0-15.0); Immature Granulocyte Absolute 0.09 K/mm3 (0.00-0.031); Immature Granulocyte Percent A 1.5 % (0-0.5); Lymphocytes Absolute Auto 2.06 K/mm3 (0.9-3.2); Lymphocytes Percent Auto 34.4 % (18.3-44.2); Mean Corpuscular HGB Conc 28.7 g/dl (32-36); Mean Corpuscular Hemoglobin 24.3 pg (26-34); Mean Corpuscular Volume 84.6 fl (80-100); Mean Platelet Volume 9.2 fl (7.4-10.4); Monocytes Absolute Auto 0.7 K/mm3 (0.1-0.6); Monocytes Percent Auto 11.2 % (2.6-8.5); Neutrophils Absolute Auto 3.1 K/mm3 (1.3-6.7); Neutrophils Percent Auto 51.2 % (45.5-73.1); Platelet Count Result 281 k/mm3 (150-375); Red Blood Count 5.19 M/mm3 (4.2-5.4); Red Cell Distribution Width 22.4 % (11.5-14.5)
[2023-10-07 06:33] LABS: Alanine Aminotransferase 18 U/L (6-35); Albumin Level 3.8 g/dL (3.5-5.1); Alkaline Phosphatase 56 U/L (38-126); Anion Gap 4 mmol/L (4-12); Aspartate Amino Transferase 25 U/L (14-36); Bilirubin,Total 0.5 mg/dL (0.2-1.3); Blood Urea Nitrogen 23 mg/dL (7-17); Carbon Dioxide 24 mmol/L (22-30); Chloride 110 mmol/L (98-107); Estimated CRCL calculation 36 ml/min; Estimated Glomerular Filt Rate 42; Glucose 99 mg/dL (65-110); Potassium 4.5 mmol/L (3.4-5.0); Sodium 138 mmol/L (137-145)
[2023-10-07 07:17] LABS: Anisocytosis 1+; Ovalocytes 1+; Platelet Estimate Adequate (Adequate); Poikilocytosis 1+
[2023-10-07 07:18] LABS: Schistocytes None Seen
[2023-10-07] MEDS: polyethylene glycoL 3350 17 GM POWD.PACK PO (09:47)
[2023-10-07] MEDS: CHOLECALCIFEROL 1,000 UNITS TABLET 1000 UNITS PO (09:47)
[2023-10-07] MEDS: ROSUVASTATIN 10 MG TABLET PO (09:47)
[2023-10-07] MEDS: CALCIUM CARBONATE (OSCAL) 500 MG TABLET PO (09:47)
[2023-10-07] MEDS: lamoTRIgine 100 MG TABLET PO ×2 (09:47→20:18)
[2023-10-07 09:48] VITALS: PULSE 85
[2023-10-07] MEDS: APIXABAN 5 MG TABLET PO ×2 (09:48→20:18)
[2023-10-07] MEDS: amLODIPine BESYLATE 5 MG TABLET PO (09:48)
[2023-10-07] MEDS: METOPROLOL TARTRATE 12.5 MG TABLET PO ×2 (09:48→20:19)
[2023-10-07] MEDS: PANTOPRAZOLE 40 MG TABLET PO (09:48)
[2023-10-07] MEDS: SENNA/DOCUSATE SODIUM TABLET 1 TAB PO ×2 (09:48→20:18)
[2023-10-07] MEDS: ERTAPENEM 1 GM/NS 50 ML 1 GM/50 ML BAG IVPB (12:03)
--- NOTE | 2023-10-07 12:19 | PM.IMPN ---
Progress Note: A&P Assessment and Plan (1) Pyelonephritis: Code(s): N12 - Tubulo-interstitial nephritis, not specified as acute or chronic Status: Acute (2) Urinary tract infection: Code(s): N39.0 - Urinary tract infection, site not specified Status: Acute Plan 63-year-old female with a PMHx: of CVA, dementia, COPD presented to the emergency room via EMS from long-term care facility who reported patient was not feeling well along with general weakness. abdominal CT,? subtle areas of decreased enhancement in both kidneys consider pyelonephritis, focal thrombosis within the right common iliac vein, fecal impaction /constipation along with a 4 mm nonobstructing left renal stone. Patient started on IV Rocephin. Laxative for constipation. Urology consulted for kidney stones. Echo EF more than 70% grade 1 diastolic dysfunction. Negative bubble study. Follow urine culture. WBC normal mild ELFEGO creatinine continues to improve has baseline CKD stage 3. Follow-up venous duplex was negative for any DVT. Chest x-ray 10/03/2023 with mild pulmonary edema and cardiomegaly. 10/02/2023 Pt is not a good historian Urine culture with E coli ESBL switch antibiotics ertapenem day 11/03 no oral option DVT prophylaxis on apixaban Subjective Date/time seen: 10/07/23 12:19 Interval history: No overnight events doing well no new complaints tolerating IV antibiotics Review of Systems Review of Systems: All systems reviewed & are unremarkable except as noted in HPI and below Exam Narrative: General: Awake, alert, comfortable, no acute distress HEENT: Normocephalic, atraumatic, sclerae anicteric Respiratory: Normal respiratory effort, no accessory muscle use Abdomen: Nondistended, soft, nontender Skin: Normal coloration, warm and dry Neurologic: No focal neuro deficits noted, slow speech pattern Psychiatric: Emotional, judgment and insight fair, slightly forgetful Objective Data Vital Signs Vital Signs: Vital Signs - 24 hr 10/06/23 14:00 10/06/23 20:22 10/06/23 20:20 Temperature 98.8 F Pulse Rate 64 68 78 Respiratory Rate 16 18 Blood Pressure 112/52 L Pulse Oximetry 98 97 Oxygen Delivery Room Air 10/06/23 22:00 10/07/23 06:00 10/07/23 09:48 Temperature 98.2 F 98.2 F Pulse Rate 78 72 85 Respiratory Rate 18 18 Blood Pressure 134/72 139/93 H Pulse Oximetry 96 98 Oxygen Delivery Intake/Output Intake/Output: Intake & Output 10/04/23 10/05/23 10/06/23 10/07/23 23:59 23:59 23:59 23:59 Intake Total 740 570 770 480 Output Total 1250 400 350 120 Balance -510 170 420 360 Meds/Results Medications: Active Medications Generic Name Dose Route Start Last Admin Trade Name Freq PRN Reason Stop Dose Admin Acetaminophen 650 mg 10/01/23 11:54 10/03/23 08:59 Acetaminophen 325 Mg Tablet PO 650 mg Q4H PRN Administration Mild Pain (1-3) or Fever Hydrocodone Bitart/Acetaminophen 1 tab 10/01/23 11:54 10/02/23 19:55 Hydrocodone/Acetaminophen (*Crx) 5-325 Mg Tablet PO 1 tab Q4H PRN Administration Pain Rated 4-6 Amlodipine Besylate 5 mg 10/02/23 09:00 10/07/23 09:48 Amlodipine Besylate 5 Mg Tablet PO 5 mg DAILY BROOKS Administration Apixaban 5 mg 10/01/23 21:00 10/07/23 09:48 Apixaban 5 Mg Tablet PO 5 mg Q12HR BROOKS Administration Calcium Carbonate 500 mg 10/02/23 09:00 10/07/23 09:47 Calcium Carbonate (Oscal) 500 Mg Tablet PO 500 mg DAILY BROOKS Administration Ertapenem 1 gm in 50 mls @ 100 mls/hr 10/03/23 15:00 10/07/23 12:03 Invanz 1 Gm/Ns 50 Ml IVPB 10/09/23 12:29 100 mls/hr DAILY@1200 BROOKS Administration Lamotrigine 100 mg 10/01/23 21:00 10/07/23 09:47 Lamotrigine 100 Mg Tablet PO 100 mg Q12HR BROOKS Administration Metoprolol Tartrate 12.5 mg 10/01/23 21:00 10/07/23 09:48 Metoprolol Tartrate 12.5 Mg Tablet PO 12.5 mg Q12HR BROOKS Administration Olanzapine 5 mg 10/01/23 21:00 10/06/23 20:22
[2023-10-07 15:20] VITALS: BP 143/71; PULSE 74; RESP 18; TEMP 36.2; O2SAT 100
[2023-10-07 20:03] VITALS: BP 110/45; PULSE 70; RESP 16; TEMP 36.3; O2SAT 93
[2023-10-07] MEDS: OLANZapine 5 MG TABLET PO (20:18)
[2023-10-07 20:19] VITALS: PULSE 80
[2023-10-08 04:52] VITALS: BP 142/73; PULSE 75; RESP 20; TEMP 36.3; O2SAT 97
[2023-10-08 05:34] LABS: Basophils Percent Auto 0.3 % (0.2-1.2); Eosinophils Absolute Auto 0.1 K/mm3 (0-0.3); Eosinophils Percent Auto 0.7 % (0-4.4); Hemoglobin 12.8 g/dL (12.0-15.0); Immature Granulocyte Absolute 0.05 K/mm3 (0.00-0.031); Immature Granulocyte Percent A 0.7 % (0-0.5); Lymphocytes Absolute Auto 2.09 K/mm3 (0.9-3.2); Mean Corpuscular HGB Conc 29.8 g/dl (32-36); Mean Corpuscular Hemoglobin 24.2 pg (26-34); Mean Corpuscular Volume 81.4 fl (80-100); Mean Platelet Volume 9.2 fl (7.4-10.4); Monocytes Absolute Auto 0.5 K/mm3 (0.1-0.6); Neutrophils Percent Auto 59.3 % (45.5-73.1); Platelet Count Result 293 k/mm3 (150-375); Red Blood Count 5.28 M/mm3 (4.2-5.4); Red Cell Distribution Width 22.1 % (11.5-14.5); White Blood Count 6.8 K/mm3 (4.5-10.0)
[2023-10-08 05:44] LABS: Alanine Aminotransferase 23 U/L (6-35); Albumin Level 4.1 g/dL (3.5-5.1); Alkaline Phosphatase 61 U/L (38-126); Anion Gap 7 mmol/L (4-12); Aspartate Amino Transferase 33 U/L (14-36); Bilirubin,Total 0.6 mg/dL (0.2-1.3); Blood Urea Nitrogen 22 mg/dL (7-17); Calcium 9.1 mg/dL (8.4-10.2); Carbon Dioxide 24 mmol/L (22-30); Chloride 109 mmol/L (98-107); Estimated CRCL calculation 39 ml/min; Estimated Glomerular Filt Rate 46; Glucose 92 mg/dL (65-110); Potassium 4.5 mmol/L (3.4-5.0); Sodium 140 mmol/L (137-145)
[2023-10-08 08:41] LABS: Anisocytosis 1+; Hypochromasia 1+; Platelet Estimate Adequate (Adequate); Schistocytes None Seen
[2023-10-08 09:03] LABS: Glucose Point of Care 92 mg/dl (65-105)
[2023-10-08] MEDS: amLODIPine BESYLATE 5 MG TABLET PO (09:46)
[2023-10-08] MEDS: ROSUVASTATIN 10 MG TABLET PO (09:46)
[2023-10-08] MEDS: PANTOPRAZOLE 40 MG TABLET PO (09:46)
[2023-10-08] MEDS: CALCIUM CARBONATE (OSCAL) 500 MG TABLET PO (09:46)
[2023-10-08] MEDS: lamoTRIgine 100 MG TABLET PO ×2 (09:46→20:07)
[2023-10-08] MEDS: APIXABAN 5 MG TABLET PO ×2 (09:46→20:08)
[2023-10-08] MEDS: polyethylene glycoL 3350 17 GM POWD.PACK PO ×2 (09:46→16:36)
[2023-10-08] MEDS: SENNA/DOCUSATE SODIUM TABLET 1 TAB PO ×2 (09:46→20:07)
[2023-10-08] MEDS: CHOLECALCIFEROL 1,000 UNITS TABLET 1000 UNITS PO (09:46)
[2023-10-08 09:48] VITALS: PULSE 73
[2023-10-08] MEDS: METOPROLOL TARTRATE 12.5 MG TABLET PO ×2 (09:48→20:07)
[2023-10-08] MEDS: ERTAPENEM 1 GM/NS 50 ML 1 GM/50 ML BAG IVPB (12:27)
[2023-10-08 14:00] VITALS: BP 123/65; PULSE 70; RESP 16; TEMP 36.6; O2SAT 99
--- NOTE | 2023-10-08 15:11 | PM.IMPN ---
Progress Note: A&P Assessment and Plan (1) Pyelonephritis: Code(s): N12 - Tubulo-interstitial nephritis, not specified as acute or chronic Status: Acute (2) Urinary tract infection: Code(s): N39.0 - Urinary tract infection, site not specified Status: Acute (3) Thrombosis: Code(s): I82.90 - Acute embolism and thrombosis of unspecified vein Status: Acute (4) Fecal impaction: Code(s): K56.41 - Fecal impaction Status: Acute (5) Chronic kidney disease: Code(s): N18.9 - Chronic kidney disease, unspecified Status: Acute (6) Dementia: Code(s): F03.90 - Unspecified dementia, unspecified severity, without behavioral disturbance, psychotic disturbance, mood disturbance, and anxiety Status: Chronic (7) Recurrent seizures: Code(s): G40.909 - Epilepsy, unspecified, not intractable, without status epilepticus Status: Acute (8) Hypertension: Code(s): I10 - Essential (primary) hypertension Status: Acute Plan Abdominal CT,? subtle areas of decreased enhancement in both kidneys consider pyelonephritis, focal thrombosis within the right common iliac vein, fecal impaction /constipation along with a 4 mm nonobstructing left renal stone. Patient started on IV Rocephin. Laxative for constipation. Urology consulted for kidney stones. Echo EF more than 70% grade 1 diastolic dysfunction. Negative bubble study. WBC normal. Venous duplex was negative for any DVT. Chest x-ray 10/03/2023 with mild pulmonary edema and cardiomegaly. Urine culture with E coli ESBL switch antibiotics ertapenem day 6/ no oral option On apixaban for pelvic thrombosis. Subjective Date/time seen: 10/08/23 15:11 Interval history: 63yo female jwit dementia, CVA and COPD here for GNW and abdominal pain. Assuming care. Chart reviewed. Patient states she slept well. She denies chest pain or abdominal pain. Still having back pain. She is having bowel movements. Exam Narrative: AF 97.9 123/65 70 16 99% ra Gen - NARD Chest - CTA bilaterally, nml RR CV - RRR S1/S2 Abd - Soft, NT/ND, Positive BS Back - left CVA tenderness Ext - No pedal edema Psych - Nml mood and affect Skin - Warm and dry Objective Data Vital Signs Vital Signs: Vital Signs - 24 hr 10/07/23 15:20 10/07/23 20:03 10/07/23 20:19 Temperature 97.1 F L 97.4 F L Pulse Rate 74 70 80 Respiratory Rate 18 16 Blood Pressure 143/71 H 110/45 L Pulse Oximetry 100 93 Oxygen Delivery 10/07/23 20:00 10/08/23 04:52 10/08/23 09:48 Temperature 97.3 F L Pulse Rate 75 73 Respiratory Rate 20 Blood Pressure 142/73 H Pulse Oximetry 97 Oxygen Delivery Room Air 10/08/23 08:00 10/08/23 14:00 Temperature 97.9 F Pulse Rate 70 Respiratory Rate 16 Blood Pressure 123/65 Pulse Oximetry 99 Oxygen Delivery Room Air Intake/Output Intake/Output: Intake & Output 10/05/23 10/06/23 10/07/23 10/08/23 23:59 23:59 23:59 23:59 Intake Total 837 005 4580 124 Output Total 400 350 470 300 Balance 719 904 1004 -176 Meds/Results Medications: Active Medications Generic Name Dose Route Start Last Admin Trade Name Freq PRN Reason Stop Dose Admin Acetaminophen 650 mg 10/01/23 11:54 10/03/23 08:59 Acetaminophen 325 Mg Tablet PO 650 mg Q4H PRN Administration Mild Pain (1-3) or Fever Hydrocodone Bitart/Acetaminophen 1 tab 10/01/23 11:54 10/02/23 19:55 Hydrocodone/Acetaminophen (*Crx) 5-325 Mg Tablet PO 1 tab Q4H PRN Administration Pain Rated 4-6 Amlodipine Besylate 5 mg 10/02/23 09:00 10/08/23 09:46 Amlodipine Besylate 5 Mg Tablet PO 5 mg DAILY BROOKS Administration Apixaban 5 mg 10/01/23 21:00 10/08/23 09:46 Apixaban 5 Mg Tablet PO 5 mg Q12HR BROOKS Administration Calcium Carbonate 500 mg 10/02/23 09:00 10/08/23 09:46 Calcium Carbonate (Oscal) 500 Mg Tablet PO 500 mg DAILY BROOKS Administration Ertapen
[2023-10-08 19:52] VITALS: PULSE 73; O2SAT 92
[2023-10-08 20:07] VITALS: PULSE 80
[2023-10-08] MEDS: OLANZapine 5 MG TABLET PO (20:07)
[2023-10-08 20:33] VITALS: BP 114/53; PULSE 74; RESP 17; TEMP 36.4; O2SAT 95
[2023-10-09 05:06] VITALS: BP 139/72; PULSE 75; RESP 18; TEMP 36.8; O2SAT 100
[2023-10-09 09:02] LABS: Basophils Percent Auto 0.5 % (0.2-1.2); Eosinophils Percent Auto 0.7 % (0-4.4); Hematocrit 43.7 % (37.0-47.0); Hemoglobin 12.9 g/dL (12.0-15.0); Immature Granulocyte Absolute 0.04 K/mm3 (0.00-0.031); Immature Granulocyte Percent A 0.7 % (0-0.5); Lymphocytes Absolute Auto 2.06 K/mm3 (0.9-3.2); Lymphocytes Percent Auto 35.5 % (18.3-44.2); Mean Corpuscular HGB Conc 29.5 g/dl (32-36); Mean Corpuscular Hemoglobin 24.3 pg (26-34); Mean Corpuscular Volume 82.3 fl (80-100); Mean Platelet Volume 9.3 fl (7.4-10.4); Monocytes Absolute Auto 0.4 K/mm3 (0.1-0.6); Monocytes Percent Auto 6.7 % (2.6-8.5); Neutrophils Absolute Auto 3.3 K/mm3 (1.3-6.7); Neutrophils Percent Auto 55.9 % (45.5-73.1); Platelet Count Result 333 k/mm3 (150-375); Red Blood Count 5.31 M/mm3 (4.2-5.4); Red Cell Distribution Width 22.3 % (11.5-14.5); White Blood Count 5.8 K/mm3 (4.5-10.0)
[2023-10-09 09:07] VITALS: PULSE 64
[2023-10-09] MEDS: CHOLECALCIFEROL 1,000 UNITS TABLET 1000 UNITS PO (09:07)
[2023-10-09] MEDS: lamoTRIgine 100 MG TABLET PO (09:07)
[2023-10-09] MEDS: PANTOPRAZOLE 40 MG TABLET PO (09:07)
[2023-10-09] MEDS: SENNA/DOCUSATE SODIUM TABLET 1 TAB PO (09:07)
[2023-10-09] MEDS: amLODIPine BESYLATE 5 MG TABLET PO (09:07)
[2023-10-09] MEDS: CALCIUM CARBONATE (OSCAL) 500 MG TABLET PO (09:07)
[2023-10-09] MEDS: polyethylene glycoL 3350 17 GM POWD.PACK PO (09:07)
[2023-10-09] MEDS: METOPROLOL TARTRATE 12.5 MG TABLET PO (09:07)
[2023-10-09] MEDS: APIXABAN 5 MG TABLET PO (09:07)
[2023-10-09] MEDS: ROSUVASTATIN 10 MG TABLET PO (09:07)
[2023-10-09 10:49] LABS: Anisocytosis 1+; Hypochromasia 1+; Platelet Estimate Adequate (Adequate); Poikilocytosis 1+; Schistocytes None Seen
[2023-10-09 11:05] LABS: Alanine Aminotransferase 26 U/L (6-35); Albumin Level 4.1 g/dL (3.5-5.1); Alkaline Phosphatase 64 U/L (38-126); Anion Gap 7 mmol/L (4-12); Aspartate Amino Transferase 31 U/L (14-36); Bilirubin,Total 0.7 mg/dL (0.2-1.3); Blood Urea Nitrogen 18 mg/dL (7-17); Calcium 9.4 mg/dL (8.4-10.2); Carbon Dioxide 23 mmol/L (22-30); Chloride 110 mmol/L (98-107); Estimated CRCL calculation 42 ml/min; Estimated Glomerular Filt Rate 50; Glucose 95 mg/dL (65-110); Potassium 4.4 mmol/L (3.4-5.0); Sodium 140 mmol/L (137-145)
[2023-10-09] MEDS: ERTAPENEM 1 GM/NS 50 ML 1 GM/50 ML BAG IVPB (12:23)
[2023-10-09 13:16] LABS: SARS-CoV-2 RNA PCR Negative (Negative)
[2023-10-09 14:00] VITALS: BP 142/74; PULSE 84; RESP 18; TEMP 36.3; O2SAT 97
--- NOTE | 2023-10-09 16:15 | PM.DS ---
DS: Admitting Diagnosis Discharge Date 10/09/23 Admitting Diagnosis Weakness and abdominal pain DS: Discharge Diagnosis Discharge Diagnosis (1) Pyelonephritis: Code(s): N12 - Tubulo-interstitial nephritis, not specified as acute or chronic Status: Acute (2) Urinary tract infection: Code(s): N39.0 - Urinary tract infection, site not specified Status: Acute (3) Thrombosis: Code(s): I82.90 - Acute embolism and thrombosis of unspecified vein Status: Acute (4) Fecal impaction: Code(s): K56.41 - Fecal impaction Status: Acute (5) Chronic kidney disease: Code(s): N18.9 - Chronic kidney disease, unspecified Status: Acute (6) Dementia: Code(s): F03.90 - Unspecified dementia, unspecified severity, without behavioral disturbance, psychotic disturbance, mood disturbance, and anxiety Status: Chronic (7) Recurrent seizures: Code(s): G40.909 - Epilepsy, unspecified, not intractable, without status epilepticus Status: Acute (8) Hypertension: Code(s): I10 - Essential (primary) hypertension Status: Acute DS: Summary Hospital Course Reason for hospitalization: 63yo female with dementia, CVA and COPD here for GNW and abdominal pain. Please see H&P for details. Hospital Course: Patient had an CT abdomin and pelvis showing subtle areas of decreased enhancement in both kidneys consider pyelonephritis and a focal thrombosis within the right common iliac vein. Also noted was a fecal impaction /constipation along with a 4mm nonobstructing left renal stone. Patient was started on IV Rocephin. Laxative for constipation. Urology consulted for kidney stones. Echo EF >70%, grade 1 diastolic dysfunction with negative bubble study. WBC normal. She remained afebrile. Venous duplex was negative for DVT. Chest x-ray 10/03/2023 with mild pulmonary edema and cardiomegaly. Urine culture grew Ecoli ESBL so abx switched to ertapenem ans she completed a 7 day course. She was started on apixaban for the pelvic thrombosis. She overall did well and was able to be discharged on 10/09/23 Status at Discharge Cognitive/behavioral status at discharge: stable Time Spent with Patient Time attestation: Total time spent providing and/or coordinating discharge services: 34 minutes Time spent: Greater than 30 minutes Exam Narrative: AF 97.3 142/74 84 18 97% ra Gen - NARD Chest - CTA bilaterally, nml RR CV - RRR S1/S2 Abd - Soft, NT/ND, Positive BS Ext - No pedal edema Psych - Nml mood and affect Skin - Warm and dry DS: Data Data Completed and Pending Labs on day of discharge: Labs from last 24 hours 10/09/23 10/09/23 12:23 08:54 WBC 5.8 RBC 5.31 Hgb 12.9 Hct 43.7 MCV 82.3 MCH 24.3 L MCHC 29.5 L RDW 22.3 H Plt Count 333 MPV 9.3 Immature Gran % (Auto) 0.7 H Neut % (Auto) 55.9 Lymph % (Auto) 35.5 [place] % (Auto) 6.7 Eos % (Auto) 0.7 Baso % (Auto) 0.5 Lymph # (Auto) 2.06 [place] # (Auto) 0.4 Eos # (Auto) 0.0 Baso # (Auto) 0.0 Abs Immat Gran (auto) 0.04 H Absolute Neuts (auto) 3.3 Absolute Nucleated RBC 0.000 Nucleated RBC % 0.0 Platelet Estimate Adequate Hypochromasia 1+ Poikilocytosis 1+ Anisocytosis 1+ Schistocytes None seen Sodium 140 Potassium 4.4 Chloride 110 H Carbon Dioxide 23 Anion Gap 7 BUN 18 H Creatinine 1.30 H Estim Creat Clear Calc 42 Estimated GFR 50 L Glucose 95 Calcium 9.4 Total Bilirubin 0.7 AST 31 ALT 26 Alkaline Phosphatase 64 Total Protein 7.0 Albumin 4.1 SARS-CoV-2 RNA (RT-PCR) Negative Discharge Plan Discharge Attending physician on discharge: Ángel Rodriguez Consulting providers: Johan Cuevas Discharging Clinician: Ángel Rodriguez Anticipated Discharge Date/Time: 10/09/23 16:20 Patient Disposition: NH Shelter/Asst Living Activity: as tolerated Diet: reg
== END 2023-10-09 18:00 | DRG 690 ==
LOC: ANHED 09:20 → ANH3MEDSUR 12:46 → ANH3MED 12:47
PROVIDERS: Nurse Practitioner; Admitting Provider Hospitalist; Emergency Provider Emergency Medicine; PCP Hospitalist; Visit Provider Internal Medicine
DX: N39.0 Urinary tract infection, site not specified (principal); Z16.12 Extended spectrum beta lactamase (ESBL) resistance; I82.421 Acute embolism and thrombosis of right iliac vein; N17.9 Acute kidney failure, unspecified; N12 Tubulo-interstitial nephritis, not specified as acute or chronic; B96.20 Unspecified Escherichia coli [E. coli] as the cause of diseases classified elsewhere; I69.320 Aphasia following cerebral infarction; I69.398 Other sequelae of cerebral infarction; I12.9 Hypertensive chronic kidney disease with stage 1 through stage 4 chronic kidney disease, or unspecified chronic kidney disease; G40.909 Epilepsy, unspecified, not intractable, without status epilepticus; F03.90 Unspecified dementia, unspecified severity, without behavioral disturbance, psychotic disturbance, mood disturbance, and anxiety; K56.41 Fecal impaction; N20.0 Calculus of kidney; N18.30 Chronic kidney disease, stage 3 unspecified; J44.9 Chronic obstructive pulmonary disease, unspecified; Z11.52 Encounter for screening for COVID-19; Z20.822 Contact with and (suspected) exposure to COVID-19; Z79.01 Long term (current) use of anticoagulants; Z74.01 Bed confinement status; Z87.891 Personal history of nicotine dependence
CPT/HCPCS: 36415; 71046; 74177; 80053; 81001; 82607; 82948; 83735; 84484; 85025; 87086; 87186; 87635; 87637; 93005; 93306; 93970; 96361; 96365; 96366; 96375; 97161; 99285; A9270; G0378; J0696; J1335; J7030; Q9967

== ENCOUNTER 2024-01-13 20:04 | Emergency (ER) | payer OTHER, SELFPAY ==
--- NOTE | ~2024-01-13 | CT_ITS ---
EXAMINATION: CT cervical spine wo con DATE: 01/13/2024 21:10 INDICATION: fall TECHNIQUE: Computed tomography (CT) of the cervical spine was performed without intravenous contrast. Automated exposure control and iterative reconstruction technique were employed. The dose-length pro duct was 545.53 mGy-cm. COMPARISON: None. FINDINGS: Vertebral Body Alignment: Reversal of the normal cervical lordosis centered at C3-4. 2 mm anterolisth esis of C3 on C4. 2 mm anterolisthesis at C7-T1. The listheses are likely on a degenerative basis. Craniocervical and atlantoaxial alignment: Mild degenerative change. Alignment intact. Osseous structures/fracture: No evidence of a lytic or blastic process in the visualized spine. No e vidence of acute fracture. Multilevel degenerative appearing height loss in the mid and lower cervica l spine. Cervical soft tissues: The paraspinal soft tissues planes are maintained. Emphysematous changes in th e lungs. Degenerative changes: Multilevel moderate degenerative disc disease and facet arthropathy. Multilevel mild and moderate degrees of neural foraminal narrowing. No severe neural foraminal or central canal narrowing IMPRESSION: No acute fracture or traumatic malalignment in the cervical spine. Reviewed, dictated and finalized at location K.
--- NOTE | ~2024-01-13 | CT_ITS ---
EXAMINATION: CT brain wo con DATE: 01/13/2024 21:10 INDICATION: fall . TECHNIQUE: Computed tomography (CT) of the head was performed without intravenous contrast. The mA wa s adjusted according to patient size. Iterative reconstruction technique was employed. The dose-lengt h product was 605.33 mGy-cm. COMPARISON: 09/29/2023. FINDINGS: No acute intracranial hemorrhage or extra-axial fluid collection. No hydrocephalus, mass, or herniation. No acute ischemic infarct. Unremarkable dural venous sinus attenuation. No acute osseous abnormality. The aerated spaces are clear. Moderate atrophy and severe chronic white matter change. Atherosclerotic intracranial calcification. Cavum septum pellucidum. Focal areas of encephalomalacia in the bilateral frontal, parietal lobes, an d right cerebellar hemisphere. Bilateral focal basal ganglia lacunar infarcts. IMPRESSION: No acute intracranial process. Reviewed, dictated and finalized at location K.
[2024-01-13 20:19] VITALS: BP 170/83; PULSE 73; RESP 15; TEMP 36.2; O2SAT 100
--- NOTE | 2024-01-13 22:46 | ED.GENADULT ---
HPI - General Adult General Chief complaint: Fall Stated complaint: GLF Time Seen by Provider: 01/13/24 22:41 History of Present Illness HPI narrative: Patient is a 63-year-old female who presents emergency department with chief complaint of ground level fall. The patient is resident of [facility] and is normally alert oriented x1 the patient reported that she actually remembered falling today of reports that she has no pain anywhere the patient does have history of dementia and is on an anticoagulant. Related Data Home Medications Medication Instructions Recorded Confirmed amlodipine 5 mg tablet 5 mg PO DAILY 04/04/23 10/01/23 cholecalciferol (vitamin D3) 25 25 mcg PO DAILY 04/04/23 10/01/23 mcg (1,000 unit) capsule (Vitamin D3) ferrous sulfate 325 mg (65 mg 325 mg PO QMWFSU 04/04/23 10/01/23 iron) tablet lamotrigine 100 mg tablet 100 mg PO BID 04/04/23 10/01/23 metoprolol tartrate 25 mg tablet 12.5 mg PO BID 04/04/23 10/01/23 olanzapine 5 mg tablet 2.5 mg PO BID 04/04/23 10/01/23 olanzapine 5 mg tablet 5 mg PO QHS 04/04/23 10/01/23 pantoprazole 40 mg tablet,delayed 40 mg PO DAILY 04/04/23 10/01/23 release rosuvastatin 10 mg tablet 10 mg PO DAILY 04/04/23 10/01/23 calcium carbonate 500 mg PO DAILY 10/01/23 10/01/23 ondansetron 4 mg disintegrating 4 mg PO Q8H PRN Nausea And Vomiting 10/01/23 10/01/23 tablet sennosides 8.6 mg-docusate sodium 1 tab-cap PO BID 10/01/23 10/01/23 50 mg tablet (Senna-S) trazodone 50 mg tablet 50 mg PO HS 10/01/23 10/01/23 Allergies Allergy/AdvReac Type Severity Reaction Status Date / Time No Known Allergies Allergy Verified 12/10/23 16:01 Review of Systems Review of Systems: A 10 system review of systems was completed on the patient and is negative except for what is stated in the HPI. Nursing and ancillary documentation was reviewed. [facility] Past Medical History Medical History Cerebrovascular accident 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 Chronic kidney disease Dementia Hypertension Seizures Toxoplasmosis Surgical History Surgical History No significant past surgical history Family History Family History Other Family history unknown Social History Social History Social History: Surrogate medical decision maker: Wicho Braxton, spouse. Code status: Full code. Smoking status: Former smoker Alcohol intake: unknown Substance use: unknown Spiritual care concerns: No Exam Narrative: GENERAL: Well-appearing, well-nourished, and in no acute distress. HEAD: Normocephalic, atraumatic. EYES: PERRLA and EOMI. ENT: Nares clear, no rhinorrhea or epistaxis. Mucous membranes moist. NECK: Supple. CHEST: Clear to auscultation. No respiratory distress. HEART: Regular rate and rhythm. No murmur heard. Normal peripheral pulses. ABDOMEN: Soft, nontender, nondistended, normal active bowel sounds. EXTREMITIES: Normal range of motion. No edema. SKIN: Warm, dry, no rash. NEURO: No focal deficits. Alert and oriented x1. PSYCH: Normal mood and affect. Course Vital Signs Vital signs: Vital Signs Temperature 36.2 C L 01/13/24 20:19 Pulse Rate 73 01/13/24 20:19 Respiratory Rate 15 01/13/24 20:19 Blood Pressure 170/83 H 01/13/24 20:19 Pulse Oximetry 100 01/13/24 20:19 Oxygen Delivery Room Air 01/13/24 20:19 Temperature 36.2 C L 01/13/24 20:19 Pulse Rate 73 01/13/24 20:19 Respiratory Rate 15 01/13/24 20:19 Blood Pressure 170/83 H 01/13/24 20:19 Pulse Oximetry 100 01/13/24 20:19 Oxygen Delivery Room Air 01/13/24 20:19 Medical Decision Making MDM Narrative Medical decision making narrative: Differential diagnosis includes intracranial he
[2024-01-13 22:57] VITALS: BP 150/84; PULSE 91; RESP 16; O2SAT 99
== END 2024-01-14 04:33 ==
PROVIDERS: Emergency Provider Emergency Medicine; PCP Hospitalist
DX: S09.90XA Unspecified injury of head, initial encounter (principal); W19.XXXA Unspecified fall, initial encounter; I69.320 Aphasia following cerebral infarction; F03.90 Unspecified dementia, unspecified severity, without behavioral disturbance, psychotic disturbance, mood disturbance, and anxiety; I10 Essential (primary) hypertension; G40.909 Epilepsy, unspecified, not intractable, without status epilepticus
CPT/HCPCS: 70450; 72125; 99284

== ENCOUNTER 2024-03-22 18:50 | Emergency (ER) | payer OTHER, SELFPAY ==
--- NOTE | ~2024-03-22 | XR_ITS ---
EXAMINATION: XR chest 1V portable DATE: 03/22/2024 19:38 INDICATION: Infection TECHNIQUE: frontal view of the chest was obtained. COMPARISON: Chest radiograph dated 10/01/2023 FINDINGS: The lungs are clear with no focal airspace opacities, pulmonary edema, pleural effusion or pneumothor ax. The cardiomediastinal silhouette is normal. Left pectoral implantable head counselor. IMPRESSION: 1. No acute cardiopulmonary disease. Reviewed, dictated and finalized at location A.
[2024-03-22 18:51] VITALS: BP 158/103; PULSE 107; RESP 22; TEMP 36.6; O2SAT 93
[2024-03-22 18:59] VITALS: O2SAT 96
--- NOTE | 2024-03-22 19:17 | PC.NURSE ---
Assumed care of pt from LUBNA Kennedy at this time.
[2024-03-22 19:37] VITALS: PULSE 94
--- NOTE | 2024-03-22 19:47 | ED.GENADULT ---
HPI - General Adult General Chief complaint: Seizure Stated complaint: 1 min seizure, back to baseline of axox2 Time Seen by Provider: 03/22/24 19:10 History of Present Illness HPI narrative: Patient is a 64-year-old female who presents to the emergency department this evening from her intermediate after breakthrough seizure. Staff at her nursing facility states that patient had a witnessed grand mal seizure lasting approximately 1 minute. Patient does have known history of his seizures and is on lamotrigine for her seizures. Patient also has a history of known dementia and is normally A&O x2 at baseline. Upon EMS arrival, patient was noted to be A&O x1. Patient's last seizure was approximately 1 month ago. Patient is currently denying any symptoms including any headaches, blurry visions, focal weakness, numbness and tingling. Patient also denies any chest pain, shortness of breath, nausea, vomiting, or abdominal pain. Patient is alert and oriented to person and place and answering all my questions appropriately during the time of my examination, however, she does deny a history of seizure disorder. No additional symptoms or concerns at this time. Related Data Home Medications Medication Instructions Recorded Confirmed amlodipine 5 mg tablet 5 mg PO DAILY 04/04/23 10/01/23 cholecalciferol (vitamin D3) 25 25 mcg PO DAILY 04/04/23 10/01/23 mcg (1,000 unit) capsule (Vitamin D3) ferrous sulfate 325 mg (65 mg 325 mg PO QMWFSU 04/04/23 10/01/23 iron) tablet lamotrigine 100 mg tablet 100 mg PO BID 04/04/23 10/01/23 metoprolol tartrate 25 mg tablet 12.5 mg PO BID 04/04/23 10/01/23 olanzapine 5 mg tablet 2.5 mg PO BID 04/04/23 10/01/23 olanzapine 5 mg tablet 5 mg PO QHS 04/04/23 10/01/23 pantoprazole 40 mg tablet,delayed 40 mg PO DAILY 04/04/23 10/01/23 release rosuvastatin 10 mg tablet 10 mg PO DAILY 04/04/23 10/01/23 calcium carbonate 500 mg PO DAILY 10/01/23 10/01/23 ondansetron 4 mg disintegrating 4 mg PO Q8H PRN Nausea And Vomiting 10/01/23 10/01/23 tablet sennosides 8.6 mg-docusate sodium 1 tab-cap PO BID 10/01/23 10/01/23 50 mg tablet (Senna-S) trazodone 50 mg tablet 50 mg PO HS 10/01/23 10/01/23 Allergies Allergy/AdvReac Type Severity Reaction Status Date / Time No Known Allergies Allergy Verified 12/10/23 16:01 Review of Systems Review of Systems: All systems are reviewed and are negative unless stated otherwise in the HPI. PMFSH Past Medical History Medical History Cerebrovascular accident 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 Chronic kidney disease Dementia Hypertension Seizures Toxoplasmosis Surgical History Surgical History No significant past surgical history Family History Family History Other Family history unknown Social History Social History Social History: Surrogate medical decision maker: Wicho Braxton, spouse. Code status: Full code. Smoking status: Former smoker Alcohol intake: unknown Substance use: unknown Spiritual care concerns: No Exam Narrative: General: Alert, awake, afebrile, in no acute distress. HEENT: PERRL, no rhinorrhea, no post nasal drip, oropharynx clear. Cardiovascular: Regular rate and rhythm, no murmurs, rubs or gallops, no peripheral edema. Respiratory: Clear to auscultation bilaterally, no tachypnea, no wheezing, no rhonchi, no rubs, no respiratory distress. Abdomen: Soft, nontender, nondistended, no rebound, no guarding, no peritoneal signs. Musculoskeletal: No joint swelling or deformity, normal muscle tone. Skin: No rashes or petechia, no signs of infection. Neurological: Alert and oriented to person, place, and time. Follows all commands. No focal deficits, speech is clear and fluent. Course
--- NOTE | 2024-03-22 19:51 | ECG_ITS ---
Test Date: 2024-03-22 20:12:44 Measurements Intervals [place] Rate: 88 P: 49 [place]: 184 QRS: -13 QRSD: 81 T: 34 QT: 333 QTc: 404 Interpretive Statements SINUS RHYTHM NONSPECIFIC ST & T-WAVE ABNORMALITY- ANTEROLAT/INF LEADS BASELINE ARTIFACT- I, II, III, AVR, AVL, AVF, V1 BORDERLINE ECG No previous ECG available for comparison Electronically Signed On 03-23-2024 06:22:07 CDT by Andrés Bray D.O.
[2024-03-22 20:02] LABS: Basophils Percent Auto 0.5 % (0.2-1.2); Eosinophils Absolute Auto 0.1 K/mm3 (0-0.3); Eosinophils Percent Auto 1.6 % (0-4.4); Hematocrit 45.1 % (37.0-47.0); Hemoglobin 14.1 g/dL (12.0-15.0); Immature Granulocyte Absolute 0.03 K/mm3 (0.00-0.031); Immature Granulocyte Percent A 0.5 % (0-0.5); Lymphocytes Absolute Auto 1.04 K/mm3 (0.9-3.2); Lymphocytes Percent Auto 18.2 % (18.3-44.2); Mean Corpuscular HGB Conc 31.3 g/dl (32-36); Mean Corpuscular Hemoglobin 26.6 pg (26-34); Mean Corpuscular Volume 84.9 fl (80-100); Mean Platelet Volume 9.7 fl (7.4-10.4); Monocytes Absolute Auto 0.4 K/mm3 (0.1-0.6); Monocytes Percent Auto 7.2 % (2.6-8.5); Neutrophils Absolute Auto 4.1 K/mm3 (1.3-6.7); Platelet Count Result 287 k/mm3 (150-375); Red Blood Count 5.31 M/mm3 (4.2-5.4); Red Cell Distribution Width 17.2 % (11.5-14.5); White Blood Count 5.7 K/mm3 (4.5-10.0)
[2024-03-22 20:06] LABS: Add Urine Microscopic? YES; Appearance Urine Clear (Clear); Bacteria Urine 4+ /hpf; Bilirubin Urine Negative (Negative); Blood Urine Negative (Negative); Color Urine Yellow (Yellow); Glucose Urine UA Negative (Negative); Ketones Urine Negative (Negative); Leukocyte Esterase Ur 2+ LEU/UL (Negative); Nitrate Urine Positive (Negative); Non Pathogenic Casts 0-2; Protein Urine Negative (Negative); RBC Urine 0-2 /hpf (0-2); Specific Grav Ur 1.008 (1.001-1.035); Squamous Epithelial Cell Urine None Seen /hpf (Few); WBC Urine 21-50 /hpf (0-3)
[2024-03-22 20:13] LABS: Alanine Aminotransferase 17 U/L (6-35); Albumin Level 4.6 g/dL (3.5-5.1); Alkaline Phosphatase 74 U/L (38-126); Anion Gap 12 mmol/L (4-12); Aspartate Amino Transferase 26 U/L (14-36); Bilirubin,Total 0.4 mg/dL (0.2-1.3); Blood Urea Nitrogen 17 mg/dL (7-17); Calcium 9.6 mg/dL (8.4-10.2); Carbon Dioxide 25 mmol/L (22-30); Chloride 102 mmol/L (98-107); Creatine Kinase 275 U/L (30-135); Estimated CRCL calculation 40 ml/min; Estimated Glomerular Filt Rate 46; Glucose 122 mg/dL (65-110); Magnesium 2.4 mg/dL (1.6-2.3); Potassium 4.2 mmol/L (3.4-5.0); Sodium 139 mmol/L (137-145)
[2024-03-22] MEDS: SODIUM CHLORIDE 0.9% IV 1,000 ML 999 ML IV CONT (20:20)
[2024-03-22 21:03] VITALS: BP 132/78; PULSE 79; RESP 16; O2SAT 97
[2024-03-22 22:59] LABS: Reflex Lactic Acid Yes or No Add Lactic
== END 2024-03-22 21:04 ==
PROVIDERS: Emergency Provider Emergency Medicine; PCP Hospitalist
DX: G40.909 Epilepsy, unspecified, not intractable, without status epilepticus (principal); N39.0 Urinary tract infection, site not specified; F03.90 Unspecified dementia, unspecified severity, without behavioral disturbance, psychotic disturbance, mood disturbance, and anxiety; I12.9 Hypertensive chronic kidney disease with stage 1 through stage 4 chronic kidney disease, or unspecified chronic kidney disease; N18.9 Chronic kidney disease, unspecified; I69.320 Aphasia following cerebral infarction; Z87.891 Personal history of nicotine dependence; Z79.01 Long term (current) use of anticoagulants
CPT/HCPCS: 36415; 71045; 80053; 81001; 82550; 83605; 83735; 85025; 87077; 87086; 87088; 87186; 93005; 96360; 99284; J7030

== ENCOUNTER 2024-07-01 08:35 | Emergency (ER) | payer OTHER, SELFPAY ==
--- NOTE | ~2024-07-01 | CT_ITS ---
EXAMINATION: CT brain wo con DATE: 07/01/2024 11:29 INDICATION: Seizure-like activity. TECHNIQUE: Computed tomography (CT) of the head was performed without intravenous contrast. The mA wa s adjusted according to patient size. Iterative reconstruction technique was employed. The dose-lengt h product was 1210.67 mGy-cm. COMPARISON: Head CT 01/13/2024 FINDINGS: There are old infarcts involving the right thalamus, bilateral basal ganglia, left frontal lobe, and left parietal lobe. There are scattered areas of low attenuation in the cerebral white rudy er. There is no intracranial hemorrhage, acute infarction, or abnormal intracranial mass lesion. The ventricles are normal in size. There is mild mucosal thickening in the paranasal sinuses. The orbits are normal. The mastoid air cells are normal. IMPRESSION: 1. Old infarcts involving the right thalamus, bilateral basal ganglia, left frontal lobe, and left pa rietal lobe. 2. Stable extensive nonspecific cerebral white matter disease, which likely represents chronic small vessel ischemic disease. Reviewed, dictated and finalized at location A. RESSIVE CARE UNIT REGISTERED NURSE IMPRESSION: 1. Old infarcts involving the right thalamus, bilateral basal ganglia, left fro ntal lobe, and left parietal lobe. 2. Stable extensive nonspecific cerebral white matter disease, which likely rep resents chronic small vessel ischemic disease.
[2024-07-01 08:32] VITALS: BP 141/87; PULSE 104; RESP 18; TEMP 36.4; O2SAT 97
--- NOTE | 2024-07-01 10:45 | ECG_ITS ---
Test Date: 2024-07-01 10:47:01 Measurements Intervals [place] Rate: 91 P: 42 [place]: 183 QRS: -17 QRSD: 86 T: 38 QT: 328 QTc: 404 Interpretive Statements SINUS RHYTHM NONSPECIFIC ST & T-WAVE ABNORMALITY Compared to ECG 03/22/2024 20:12:44 T-wave abnormality now present Electronically Signed On 07-05-2024 14:22:40 [employer] MAKER TECHNICIAN by Sidney Justin M.D.
[2024-07-01 10:46] VITALS: BP 144/83; PULSE 95; RESP 18; TEMP 36.5; O2SAT 100
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
[2024-07-01 11:17] LABS: Add Urine Microscopic? YES; Appearance Urine Cloudy (Clear); Bacteria Urine 4+ /hpf; Bilirubin Urine Negative (Negative); Blood Urine Negative (Negative); Color Urine Yellow (Yellow); Glucose Urine UA Negative (Negative); Ketones Urine Negative (Negative); Leukocyte Esterase Ur 1+ LEU/UL (Negative); Need Manual Microscopic Reviewed; Nitrate Urine Negative (Negative); Non Pathogenic Casts 0-2; Protein Urine Trace mg/dL (Negative); RBC Urine 0-2 /hpf (0-2); Specific Grav Ur 1.015 (1.001-1.035); Squamous Epithelial Cell Urine None Seen /hpf (Few); Urobilinogen Urine 0.2 mg/dL (<2.0); WBC Urine 21-50 /hpf (0-3)
[2024-07-01 11:22] LABS: Basophils Percent Auto 0.2 % (0.2-1.2); Eosinophils Percent Auto 0.2 % (0-4.4); Hematocrit 45.9 % (37.0-47.0); Hemoglobin 14.4 g/dL (12.0-15.0); Immature Granulocyte Absolute 0.03 K/mm3 (0.00-0.031); Immature Granulocyte Percent A 0.3 % (0-0.5); Lymphocytes Absolute Auto 1.22 K/mm3 (0.9-3.2); Mean Corpuscular HGB Conc 31.4 g/dl (32-36); Mean Corpuscular Hemoglobin 26.5 pg (26-34); Mean Corpuscular Volume 84.5 fl (80-100); Mean Platelet Volume 9.8 fl (7.4-10.4); Monocytes Absolute Auto 0.4 K/mm3 (0.1-0.6); Monocytes Percent Auto 4.8 % (2.6-8.5); Neutrophils Percent Auto 80.5 % (45.5-73.1); Platelet Count Result 334 k/mm3 (150-375); Red Blood Count 5.43 M/mm3 (4.2-5.4); White Blood Count 8.7 K/mm3 (4.5-10.0)
[2024-07-01 11:37] LABS: Lactic Acid Reflex 1.7 mmol/L (0.7-2.0)
[2024-07-01 11:40] LABS: Alanine Aminotransferase 28 U/L (6-35); Albumin Level 4.3 g/dL (3.5-5.1); Alkaline Phosphatase 91 U/L (38-126); Anion Gap 5 mmol/L (4-12); Aspartate Amino Transferase 26 U/L (14-36); Bilirubin,Total 0.4 mg/dL (0.2-1.3); Blood Urea Nitrogen 20 mg/dL (7-17); Calcium 9.7 mg/dL (8.4-10.2); Carbon Dioxide 27 mmol/L (22-30); Chloride 110 mmol/L (98-107); Estimated Glomerular Filt Rate 50; Glucose 99 mg/dL (65-110); Sodium 142 mmol/L (137-145)
[2024-07-01 11:51] LABS: Creatine Kinase 208 U/L (30-135)
--- NOTE | 2024-07-01 12:36 | PC.NURSE ---
[facility] with no reply once transferred to RN.
[2024-07-01] MEDS: NITROFURANTOIN MONOHYD MACROCR 100 MG CAP PO (13:03)
[2024-07-01 13:04] VITALS: BP 149/76; PULSE 90; RESP 20; O2SAT 98
[2024-07-04 20:38] LABS: Lamotrigine Lamictal 4.2 mcg/mL (2.5-15.0)
== END 2024-07-01 13:32 ==
PROVIDERS: Emergency Provider Student in an Organized Health Care Education/Training Program; PCP Hospitalist
DX: G40.909 Epilepsy, unspecified, not intractable, without status epilepticus (principal); N30.01 Acute cystitis with hematuria; F03.B11 Unspecified dementia, moderate, with agitation; N18.9 Chronic kidney disease, unspecified; I12.9 Hypertensive chronic kidney disease with stage 1 through stage 4 chronic kidney disease, or unspecified chronic kidney disease; I69.920 Aphasia following unspecified cerebrovascular disease; J44.9 Chronic obstructive pulmonary disease, unspecified; E78.5 Hyperlipidemia, unspecified; K21.9 Gastro-esophageal reflux disease without esophagitis; Z86.711 Personal history of pulmonary embolism; Z87.891 Personal history of nicotine dependence; R94.31 Abnormal electrocardiogram [ECG] [EKG]; Z79.01 Long term (current) use of anticoagulants; Z79.899 Other long term (current) drug therapy
CPT/HCPCS: 36415; 70450; 80053; 80175; 81001; 82550; 83605; 85025; 87077; 87086; 87186; 93005; 99284; A9270

== ENCOUNTER 2024-07-23 09:31 | Emergency (ER) | payer OTHER, SELFPAY ==
--- NOTE | ~2024-07-23 | XR_ITS ---
EXAMINATION: XR hip BI 2V w AP pelvis DATE: 07/23/2024 10:22 INDICATION: Hip pain. Fall. TECHNIQUE: An anteroposterior view of the pelvis and 2 views of each hip were obtained. COMPARISON: Pelvis and hip radiographs 07/13/2023 FINDINGS: Alignment is normal. No fracture. There is a benign bone island in proximal right femur. Th ere is mild osteoarthritis of the hips. IMPRESSION: 1. Mild osteoarthritis of the hips. Reviewed, dictated and finalized at location B. PULLER
--- NOTE | ~2024-07-23 | CT_ITS ---
EXAMINATION: CT facial & cervical spine wo DATE: 07/23/2024 10:13 INDICATION: Head injury. TECHNIQUE: Computed tomography (CT) of the maxillofacial region and cervical spine was performed with out intravenous contrast. Automated exposure control and iterative reconstruction technique were empl oyed. The dose-length product was 590.12 mGy-cm. COMPARISON: CT cervical spine 01/13/2024, head CT 07/01/2024 FINDINGS: MAXILLOFACIAL CT: There is an old fracture deformity of right nasal process of maxilla. There is leftward deviation of the nasal septum. There is mucosal thickening in the paranasal sinuses. The orbits are normal. The ma stoid air cells are normal. CERVICAL SPINE CT: There is mild emphysema. There is 12 degrees levoscoliosis of cervical spine. There is kyphosis of ce rvical spine. There is 2 mm anterolisthesis of C7 on T1. There is mild chronic height loss of T3 and T4 vertebral bodies. There is mildly decreased disc height at C3-C4 and moderately decreased disc hei ght at C4-C5, C5-C6, and C6-C7. The following disc levels are specifically discussed: C2-C3: There is mild bilateral uncovertebral joint osteoarthritis. There is moderate and mild left fa cet joint osteoarthritis. There is no neural foraminal stenosis. There is no central canal stenosis. C3-C4: There is moderate bilateral uncovertebral joint osteoarthritis. There is severe bilateral face t joint osteoarthritis. There is mild bilateral neural foraminal stenosis. There is no central canal stenosis. C4-C5: There is severe right and moderate left uncovertebral joint osteoarthritis. There is moderate bilateral facet joint osteoarthritis. There is mild bilateral neural foraminal stenosis. There is mil d central canal stenosis. C5-C6: There is severe bilateral uncovertebral joint osteoarthritis. There is severe bilateral facet joint osteoarthritis. There is mild bilateral neural foraminal stenosis. There is mild central canal stenosis. C6-C7: There is mild bilateral uncovertebral joint osteoarthritis. There is severe bilateral facet umu int osteoarthritis. There is mild bilateral neural foraminal stenosis. There is mild central canal st enosis. C7-T1: There is no uncovertebral joint osteoarthritis. There is severe bilateral facet joint osteoart hritis. There is mild left neural foraminal stenosis. There is no central canal stenosis. IMPRESSION: 1. No acute fracture. 2. Moderate cervical spondylosis. Reviewed, dictated and finalized at location B. AR ATTENDANT
--- NOTE | ~2024-07-23 | CT_ITS ---
EXAMINATION: CT brain wo con DATE: 07/23/2024 10:13 INDICATION: Head injury. TECHNIQUE: Computed tomography (CT) of the head was performed without intravenous contrast. The mA wa s adjusted according to patient size. Iterative reconstruction technique was employed. The dose-lengt h product was 605.33 mGy-cm. COMPARISON: Head CT 07/01/2024 FINDINGS: There are old infarcts involving the right thalamus, bilateral basal ganglia, left frontal lobe, left parietal lobe. There are scattered areas of low attenuation in the cerebral white matter. There is no intracranial hemorrhage, acute infarction, or abnormal intracranial mass lesion. The vent ricles are normal in size. The orbits are normal. There is mild mucosal thickening in the paranasal s inuses. The mastoid air cells are normal. IMPRESSION: 1. Old infarcts involving the right thalamus, bilateral basal ganglia, left frontal lobe, and left pa rietal lobe. 2. Stable extensive nonspecific cerebral white matter disease, which likely represents chronic small vessel ischemic disease. Reviewed, dictated and finalized at location B. E TENDER IMPRESSION: 1. Old infarcts involving the right thalamus, bilateral basal ganglia, left fro ntal lobe, and left parietal lobe. 2. Stable extensive nonspecific cerebral white matter disease, which likely rep resents chronic small vessel ischemic disease.
--- NOTE | ~2024-07-23 | CT_ITS ---
EXAMINATION: CT thoracic lumbar wo con DATE: 07/23/2024 10:13 INDICATION: Back pain. Fall. TECHNIQUE: Computed tomography (CT) of the thoracic and lumbar spine was performed without intravenou s contrast. Automated exposure control and iterative reconstruction technique were employed. The dose -length product was 2174.20 mGy-cm. COMPARISON: None FINDINGS: CT THORACIC SPINE: There is mild emphysema. There is 16 degrees levoscoliosis of thoracic spine. Ther e is mild chronic anterior wedging of multiple vertebral bodies. There is a chronic burst fracture of T12 with 1/5 loss of height. There is mildly decreased disc height at multiple levels. There is mode rately decreased disc height from T3-T4 through T8-T9. There is multilevel severe facet joint osteoar thritis. There is mild neural foraminal stenosis at a few levels on either side. On the right, there is moderate neural foraminal stenosis at T2-T3 and T3-T4. On the left, there is moderate neural landry inal stenosis at T2-T3. There is mild central canal stenosis at T8-T9, T10-T11, and T11-T12. CT LUMBAR SPINE: There is a 4 mm stone in left kidney. Alignment is normal. There is a chronic burst fracture of L3 with 1/5 loss of height. There is mildly decreased disc height at L2-L3 and L3-L4. The following disc levels are specifically discussed: L1-L2: There is a right foraminal protrusion. There is moderate right and mild left facet joint osteo arthritis. There is mild right neural foraminal stenosis. There is no central canal stenosis. L2-L3: The disc is bulging. There is mild bilateral facet joint osteoarthritis. There is mild bilater al neural foraminal stenosis. There is mild central canal stenosis. L3-L4: The disc is bulging. There is severe bilateral facet joint osteoarthritis. There is mild bilat eral neural foraminal stenosis. There is mild central canal stenosis. L4-L5: The disc is bulging. There is severe bilateral facet joint osteoarthritis. There is mild bilat eral neural foraminal stenosis. There is mild central canal stenosis. L5-S1: The disc is bulging. There is severe bilateral facet joint osteoarthritis. There is mild bilat eral neural foraminal stenosis. There is mild central canal stenosis. IMPRESSION: 1. No acute fracture. 2. Moderate thoracic and lumbar spondylosis. Reviewed, dictated and finalized at location B. TY INVESTIGATOR
[2024-07-23 09:30] VITALS: BP 157/86; PULSE 100; RESP 20; TEMP 36.4; O2SAT 98
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
--- OUTSIDE RECORDS SUMMARY | 2024-07-23 10:18 | XMS_ITS | Continuity of Care Document ---
Author Name [facility] Organization [facility] Care Team Providers Care Tearoom Hostess Name Role Phone [facility] Unavailable Unavailable Problems Combined list of problems from [facility] and [facility] facilities. It does not include entries that were removed or entered in error. 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 Social History Type Response Date Comment [facility] e Tobacco smoking status NHIS TOBACCO USER OFFERED MEDS 01/29/2018 [facility] History of tobacco use CURRENT TOBACCO USER 01/29/2018 [facility] History of tobacco use CURRENT TOBACCO USER 12/04/2016 [facility] History of tobacco use CURRENT TOBACCO USER 04/15/2014 [facility] History of tobacco use TOBACCO OFFERRED PT MEDS (PROVIDER) 06/07/2013 [facility] History of tobacco use TOBACCO OFFERED [facility] 05/25/2013 [facility] History of tobacco use CURRENT TOBACCO USER 02/25/2012 [facility] History of tobacco use CURRENT TOBACCO USER 01/24/2012 [facility]
[2024-07-23 10:45] VITALS: BP 162/95; PULSE 72; RESP 16; O2SAT 98
[2024-07-23 11:04] LABS: Add Urine Microscopic? YES; Appearance Urine Cloudy (Clear); Bacteria Urine 4+ /hpf; Bilirubin Urine Negative (Negative); Blood Urine Negative (Negative); Color Urine Yellow (Yellow); Glucose Urine UA Negative (Negative); Ketones Urine Negative (Negative); Leukocyte Esterase Ur 1+ LEU/UL (Negative); Nitrate Urine Negative (Negative); Non Pathogenic Casts 0-2; Protein Urine Negative (Negative); RBC Urine 0-2 /hpf (0-2); Specific Grav Ur 1.018 (1.001-1.035); Squamous Epithelial Cell Urine None Seen /hpf (Few); pH Urine 6.5 (5.0-9.0)
[2024-07-23] MEDS: NITROFURANTOIN MONOHYD MACROCR 100 MG CAP PO (11:55)
[2024-07-23 13:00] VITALS: BP 165/90; PULSE 77; RESP 18; TEMP 36.7; O2SAT 99
--- NOTE | 2024-07-23 13:41 | PC.NURSE ---
EMS arrives for patient
== END 2024-07-23 13:42 ==
PROVIDERS: Emergency Provider Registered Nurse; PCP Hospitalist
DX: S01.111A Laceration without foreign body of right eyelid and periocular area, initial encounter (principal); N39.0 Urinary tract infection, site not specified; I69.318 Other symptoms and signs involving cognitive functions following cerebral infarction; F03.B11 Unspecified dementia, moderate, with agitation; I69.920 Aphasia following unspecified cerebrovascular disease; I12.9 Hypertensive chronic kidney disease with stage 1 through stage 4 chronic kidney disease, or unspecified chronic kidney disease; N18.9 Chronic kidney disease, unspecified; E78.5 Hyperlipidemia, unspecified; J44.9 Chronic obstructive pulmonary disease, unspecified; K21.9 Gastro-esophageal reflux disease without esophagitis; Z86.711 Personal history of pulmonary embolism; R90.82 White matter disease, unspecified; M47.812 Spondylosis without myelopathy or radiculopathy, cervical region; M47.816 Spondylosis without myelopathy or radiculopathy, lumbar region; M47.814 Spondylosis without myelopathy or radiculopathy, thoracic region; M16.0 Bilateral primary osteoarthritis of hip; W05.0XXA Fall from non-moving wheelchair, initial encounter
CPT/HCPCS: 70450; 70486; 72125; 72128; 72131; 73521; 81001; 87086; 87186; 99284; A9270